=== PATIENT | female | born 1970 | race Caucasian/White ===

== ENCOUNTER → 2017-08-25 11:27 | Outpatient (CLI) | payer BC, SELFPAY ==
[2017-08-25 12:43] LABS: Thyroid Stim Hormone (TSH) 0.12 uIU/mL (0.358-3.74)
== END ==
PROVIDERS: Family Provider Family Medicine; PCP Family Medicine; Visit Provider Family Medicine
DX: E03.9 Hypothyroidism, unspecified (principal)
CPT/HCPCS: 36415; 84443

== ENCOUNTER → 2018-03-02 16:29 | Outpatient (CLI) | payer BC, SELFPAY | PROVIDERS: Visit Provider Obstetrics & Gynecology | DX: R92.2 Inconclusive mammogram (principal) | CPT/HCPCS: 87070; 87077; 87186; 87205 ==

== ENCOUNTER → 2018-04-08 13:44 | Outpatient (CLI) | payer BC, SELFPAY | PROVIDERS: Family Provider Family Medicine; PCP Family Medicine; Visit Provider Family Medicine | DX: E03.9 Hypothyroidism, unspecified (principal) | CPT/HCPCS: 36415; 84443 ==

== ENCOUNTER → 2018-05-20 13:57 | Outpatient (CLI) | payer BC, SELFPAY ==
[2018-05-20 16:28] LABS: Thyroid Stim Hormone (TSH) 1.77 uIU/mL (0.358-3.74)
== END ==
PROVIDERS: Family Provider Family Medicine; PCP Family Medicine; Visit Provider Family Medicine
DX: E03.9 Hypothyroidism, unspecified (principal)
CPT/HCPCS: 36415; 84443

== ENCOUNTER 2022-03-04 19:19 | Emergency (ER) | payer OTHER, SELFPAY ==
[2022-03-04 19:20] VITALS: BP 143/67; PULSE 92; RESP 16; TEMP 36.4; O2SAT 99; BMI 26.0
--- NOTE | 2022-03-04 20:53 | EDS_ITS ---
HPI History of Present Illness Chief Complaint: Headache Narrative Narrative: 51-year-old female presenting with headache. She has a history of migraines and this feels similar. She is had this 1 for 2 days. She describes photophobia and phonophobia. She states that she does take sumatriptan and naproxen together usually and this helps. Her headache will go away for short while and then it is coming back now. Denies fever, neck stiffness. No head trauma. No paresthesias. [facility] Medical History Back pain Hypothyroidism Left breast abscess Migraines Non-smoker Psoriasis Sjogrens syndrome Home Medications divalproex 250 mg tablet,delayed release 500 mg PO BID 02/02/16 [History Last Taken 05/16/17 07:00] levothyroxine 100 mcg tablet 112 mcg PO DAILY 02/02/16 [History Last Taken 07/01/17 04:00] propranolol 160 mg capsule,24 hr,extended release 160 mg PO DAILY 02/02/16 [History Last Taken 07/01/17 04:00] sumatriptan 85 mg-naproxen 500 mg tablet 1 tab PO PRN PRN Migraine Symptoms 02/02/16 [History Last Taken 02/02/16 09:45] erythromycin 5 mg/gram (0.5 %) eye ointment 1 applic EACH EYE QHS 05/15/17 [History Last Taken Unknown] fluorometholone acetate 0.1 % eye drops,suspension 2 drp EACH EYE DAILY 05/15/17 [History Last Taken Unknown] omeprazole 20 mg capsule,delayed release 40 mg PO DAILY 06/28/17 [History Last Taken 07/01/17 04:00] acetaminophen 500 mg tablet 500 - 1,000 mg PO PRN PRN Pain 06/30/17 [History Last Taken Unknown] cyclosporine 0.05 % eye drops in a dropperette (Restasis) 1 drp EACH EYE BID 03/04/22 [History Last Taken Unknown] Allergy/AdvReac Type Severity Reaction Status Date / Time No Known Allergies Allergy Verified 03/04/22 19:23 Family History Father Cancer Surgical History History of colonoscopy history of left breast surgery Social History Smoking Status: Never smoker alcohol intake: never substance use type: does not use ROS ROS ED Constitutional Constitutional ED: Denies chills or fever(s) Eyes Eyes: Denies change in vision ENT ENT ED: Denies rhinorrhea or sore throat Cardiovascular Cardiovascular: Denies chest pain or palpitations Respiratory/Chest Respiratory/Chest: Denies cough or dyspnea Gastrointestinal Gastrointestinal: Reports nausea; Denies abdominal pain or constipation Genitourinary Genitourinary ED: Denies dysuria or hematuria Musculoskeletal Musculoskeletal: Denies arthralgias or back pain Integumentary Denies abscess Neurologic Neurologic: Reports headache(s); Denies paresthesias Psychiatric Psychiatric: Denies anxiety or depression EXAM Physical Exam Const Vital Signs: 03/04/22 19:20 Temperature 97.5 F L Temperature Source Temporal Pulse Rate 92 Respiratory Rate 16 Blood Pressure 143/67 H Blood Pressure Mean 92 Pulse Ox 99 Oxygen Delivery Method Room Air Positive well nourished General Appearance ED: NAD HEENT Reports normocephalic and moist mucous membranes atraumatic Eyes PERRL and EOMs intact bilaterally Resp normal respiratory effort Cardio regular rate and regular rhythm GI non-tender Extremity normal to inspection Neuro oriented x3, CN's II-XII intact bilaterally and no sensory deficits noted Sensorium / Orientation: awake and alert Psych mental status grossly normal MDM MDM MDM Narrative Medical decision making narrative: Patient presenting with migraine headache. She states she had it for 2 to 3 days. Her normal eyedrops are working for her. She states this is a typical migraine for her although it is lasting longer. No focal neurologic deficits. Patient given Reglan, Benadryl, Toradol. On reevaluation at 1050 she feels very much improved and is ready to go home. I do not believe she needs any imaging or blood work. Patient to return precautions. Impression: 1. Migraine Discharge Plan Triage Chief Complaint: Headache ED Provider: James Wise Dx/Rx/DC Orders Instructions: ED, Migraine (Classical) Prescriptions: No Action sumatriptan-naproxen 1 EACH tablet 1 tab PO PRN PRN (Reason: Migraine Symptoms) Label Comments: TAKE 1 TABLET BY ORAL ROUTE NEEDED FOR HEADACHE MAX 15/MONTH propranolol 160 MG capsule,extended release 24hr 160 mg PO DAILY Label Comments: FOR PREVENTION MIGRAINES divalproex 250 MG tablet 500 mg PO BID Label Comments: PREVENT MIGRAINES levothyroxine 100 MCG tablet 112 mcg PO DAILY omeprazole 20 MG capsule 40 mg PO DAILY fluorometholone acetate 1 DROP bottle 2 drp EACH EYE DAILY erythromycin 1 APPLIC ointment 1 applic EACH EYE QHS acetaminophen 500 MG tablet 500 - 1,000 mg PO PRN PRN (Reason: Pain) cyclosporine [Restasis] 0.05 % dropperette 1 drp EACH EYE BID Label Comments: 1 drop in both eyes twice a day Primary Care Provider: Justin Johnson Referrals: Justin Johnson MD [Primary Care Provider] - Disposition Disposition: Home, Self Care
[2022-03-04] MEDS: Metoclopramide 10 MG/2 ML Vial IV (20:59)
[2022-03-04] MEDS: DiphenhydrAMINE 50 MG/ML Syringe 25 MG IV (21:00)
[2022-03-04] MEDS: 0.9% Normal Saline 1,000 ML 999 ML IV (21:00)
[2022-03-04] MEDS: Ketorolac 15 MG/ML Vial IV (21:00)
[2022-03-04 23:14] VITALS: RESP 16
== END 2022-03-04 23:15 | disposition home or self-care (01) ==
PROVIDERS: Emergency Provider Student in an Organized Health Care Education/Training Program; PCP Family Medicine; Visit Provider Student in an Organized Health Care Education/Training Program
DX: G43.909 Migraine, unspecified, not intractable, without status migrainosus (principal); E03.9 Hypothyroidism, unspecified; Z79.899 Other long term (current) drug therapy
CPT/HCPCS: 96361; 96374; 96375; 99282; J7030; A4216

== ENCOUNTER → 2022-07-10 | Outpatient (CLI) | payer OTHER, SELFPAY ==
[2022-07-10 17:56] LABS: Absolute Lymphocyte Count 2.65 X10^3/uL (0.83-4.51); Absolute Neutrophil Count 3.8 X10^3/uL (2.0-7.7); Basophil# 0.04 X10^3/uL; Basophil% 0.5 % (0-1); Eosinophil# 0.19 X10^3/uL; Eosinophils% 2.6 % (0-5); Hematocrit 47.4 % (37-47); Hemoglobin 15.7 g/dL (12.0-15.0); Lymphocyte # 2.65 X10^3/ul (0.83-4.51); Lymphocyte % 36.1 % (19-41); Mean Corp Hgb Conc 33.1 g/dL (32-36); Mean Corpuscular Hgb 32.5 pg (27.0-32.0); Mean Corpuscular Volume 98.1 fL (81-99); Mean Platelet Vol. 11.4 fl (6.2-12.0); Monocyte# 0.61 X10^3/uL; Monocyte% 8.3 % (0-10); NRBC Flagged by Analyzer 0 % (0-5); Neutrophil # 3.84 X10^3/uL (2.7-7.7); Neutrophil % 52.2 % (47-70); Platelet Count 239 K/mm3 (150-450); RBC Distribution Width CV 12.8 % (11.6-14.6); RBC Distribution Width SD 46.1 fl (35.1-43.9); Red Blood Count 4.83 M/mm3 (4.2-5.4); White Blood Count 7.4 K/mm3 (4.4-11.0)
[2022-07-10 18:40] LABS: ALB/GLOB Ratio 1.1 RATIO (0.9-2.4); AST(SGOT) 20 U/L (15-37); Alanine Aminotransfer ALT/SGPT 39 U/L (13-56); Alkaline Phosphatase 79 U/L (45-117); Anion Gap 5 (5-15); BUN 23 mg/dL (7-18); BUN/Creat Ratio 29.5 RATIO (10-20); Calcium,Total 9.8 mg/dL (8.5-10.1); Chloride 109 mmol/L (98-107); Creatinine, Serum 0.78 mg/dL (0.55-1.02); EST Glomerular Filtration Rate 82 mL/min (>60); Est Glom Filt Rate - Afr Amer 99 mL/min (>60); Free T3 2.7 pg/mL (2.18-3.98); Globulin 3.5 g/dL (2.2-4.2); Glucose 93 mg/dL (74-106); Lipase 188 U/L (73-393); Potassium 4.5 mmol/L (3.5-5.1); Protein, Total 7.5 g/dL (6.4-8.2); Sodium Level 143 mmol/L (136-145); T4 Free Direct 1.61 ng/dL (0.76-1.46); Thyroid Stim Hormone (TSH) 0.18 uIU/mL (0.358-3.74)
== END | disposition home or self-care (01) ==
LOC: BFHLAB 15:16
PROVIDERS: PCP Family Medicine; Visit Provider Family Medicine
DX: E03.9 Hypothyroidism, unspecified (principal); R10.11 Right upper quadrant pain
CPT/HCPCS: 36415; 80053; 83690; 84439; 84443; 84481; 85025

== ENCOUNTER → 2022-08-07 | Outpatient (CLI) | payer OTHER, SELFPAY ==
--- NOTE | 2022-08-07 07:20 | CT_ITS ---
STUDY: CT ABDOMEN AND PELVIS WITHOUT CONTRAST REASON FOR EXAM: Female, 52 years old. Several months history of right-sided abdominal pain. RADIATION DOSAGE (If Supplied By Facility): CTDIvol = ( 7.11 ) mGy, DLP = ( 257.43 ) mGycm TECHNIQUE: Transaxial images were obtained from the dome of the diaphragm to the symphysis pubis without oral contrast, and without intravenous contrast. Sagittal and coronal images were reconstructed. Individualized dose optimization techniques were used for this CT. COMPARISON: Comparison is made with prior study dated 08/11/2012. FINDINGS: The visualized lung bases are unremarkable. The visualized portions of the heart are within normal limits. Normal liver. Normal gallbladder and extrahepatic biliary system. Normal spleen. Normal pancreas. Normal bilateral adrenal glands. Normal right kidney. Normal left kidney. Normal visualized stomach. Normal small intestine. Moderate amount of fecal material is seen throughout the colon. The appendix is visualized and appears normal. Small lymph nodes are seen in the mesenteric fat in the right lower quadrant is suggestive of mesenteric adenitis. Normal abdominal aorta. Normal inferior vena cava. Normal retroperitoneum. Normal urinary bladder. Normal abdominal wall. Disc space narrowing and spondylosis at the L5-S1 level. CT/Abdomen/Pel W ORAL Cont Only IMPRESSION: Small lymph nodes are seen in the mesentery in the right lower quadrant suggestive of mesenteric adenitis. Electronically Signed: Richy Means MD at 9:20 EST ,
== END | disposition home or self-care (01) ==
PROVIDERS: PCP Family Medicine; Visit Provider Family Medicine
DX: R10.13 Epigastric pain (principal); R11.0 Nausea
CPT/HCPCS: 74176

== ENCOUNTER 2023-02-13 14:59 | Emergency (ER) | payer OTHER, SELFPAY ==
[2023-02-13 15:00] VITALS: BP 139/77; PULSE 75; RESP 14; TEMP 36.8; O2SAT 98
--- NOTE | 2023-02-13 15:26 | EDS_ITS ---
HPI <SHAILESH Haynes - Last Filed: 02/13/23 16:29> History of Present Illness Chief Complaint: Headache Narrative Narrative: 52-year-old female has longstanding history of migraines and developed her typical migraine yesterday. She got Toradol in the office was prescribed an antiemetic but it only helped a little bit. Pain is in the frontal region but also generalized throbbing. No visual changes. No focal motor or sensory changes. No recent head trauma. No fever or neck pain. She states she sees a neurologist and is prescribed sumatriptan and naproxen. She thinks she has had both CTs and MRIs in the past that were unremarkable. [facility] <SHAILESH Haynes - Last Filed: 02/13/23 16:29> [facility] Medical History Back pain Hypothyroidism Left breast abscess Migraines Non-smoker Psoriasis Sjogrens syndrome Home Medications divalproex 250 mg tablet,delayed release 500 mg PO BID 02/02/16 [History Last Taken 05/16/17 07:00] levothyroxine 100 mcg tablet 112 mcg PO DAILY 02/02/16 [History Last Taken 07/01/17 04:00] propranolol 160 mg capsule,24 hr,extended release 160 mg PO DAILY 02/02/16 [History Last Taken 07/01/17 04:00] sumatriptan 85 mg-naproxen 500 mg tablet 1 tab PO PRN PRN Migraine Symptoms 02/02/16 [History Last Taken 02/02/16 09:45] erythromycin 5 mg/gram (0.5 %) eye ointment 1 applic EACH EYE QHS 05/15/17 [History Last Taken Unknown] fluorometholone acetate 0.1 % eye drops,suspension 2 drp EACH EYE DAILY 05/15/17 [History Last Taken Unknown] omeprazole 20 mg capsule,delayed release 40 mg PO DAILY 06/28/17 [History Last Taken 07/01/17 04:00] acetaminophen 500 mg tablet 500 - 1,000 mg PO PRN PRN Pain 06/30/17 [History Las t Taken Unknown] cyclosporine 0.05 % eye drops in a dropperette (Restasis) 1 drp EACH EYE BID 03/04/22 [History Last Taken Unknown] Allergy/AdvReac Type Severity Reaction Status Date / Time No Known Allergies Allergy Verified 02/13/23 15:00 Family History Father Cancer Surgical History History of colonoscopy history of left breast surgery Social History Smoking Status: Never smoker alcohol intake: never substance use type: does not use ROS <SHAILESH Haynes - Last Filed: 02/13/23 16:29> ROS ED ROS Narrative Constitutional: Negative for fever, chills, malaise. Eyes: Negative for visual change. CVS: Negative for chest pain. Respiratory: Negative for shortness of breath. GI: Positive for nausea, vomiting. Neuro: Positive for headache, negative for motor/sensory dysfunction. EXAM <SHAILESH Haynes - Last Filed: 02/13/23 16:29> Physical Exam Narrative Exam Narrative: CONST: Patient sitting in no acute distress. EYES: Normal inspection. PERRLA, EOMI. ENT: Normal inspection, moist mucous membranes. NECK: Normal inspection. RESP: No respiratory distress, CTAB. CVS: Regular rate and rhythm, no murmur, no gallop. SKIN: Color normal, no rash, warm, dry, intact. EXTREMITIES: Normal appearance, no pedal edema. NEURO: Oriented x4. 5/5 upper and lower extremity strength, normal finger-nose bilaterally. PSYCH: Normal affect. Const Vital Signs: 02/13/23 15:00 Temperature 98.2 F Temperature Source Temporal Pulse Rate 75 Respiratory Rate 14 Blood Pressure 139/77 H Blood Pressure Mean 97 Pulse Ox 98 Oxygen Delivery Method Room Air <Dr. James Alexandra MD - Last Filed: 02/13/23 16:02> Physical Exam Const Vital Signs: 02/13/23 15:00 Temperature 98.2 F Temperature Source Temporal Pulse Rate 75 Respiratory Rate 14 Blood Pressure 139/77 H Blood Pressure Mean 97 Pulse Ox 98 Oxygen Delivery Method Room Air MDM <SHAILESH Haynes - Last Filed: 02/13/23 16:29> MDM MDM Narrative Medical decision making narrative: History gathered from: Patient and family member at bedside Patient presents with a migraine. She appears well nontoxic. Vital signs normal. Nonfocal neurological exam. Since this is her typical migraine with no new concerning symptoms she does not require imaging as she has had this in the past with her neurologist. I ordered IV fluids, Toradol, Compazine and Benadryl. Patient feels improved and would like to go home and will follow-up with her neurologist as needed. She was discharged in stable condition. <Dr. James Alexandra MD - Last Filed: 02/13/23 16:02> [facility] Treatment and Re-Evaluation Narrative: Ibrahima: Patient was seen by me. I agree with the above extenders note, note was done by both me and the PA as I may have edited some of the above. Patient has chronic recurrent cephalgia, she had a gradual onset of headache earlier today she has no fevers or chills, she has no head injury. She does not meet criteria for head CT. She has no signs or symptoms of infectious etiology like meningitis. LP is not warranted. Since she has a chronic recurrent cephalgia which is gradual onset I am not worried about subarachnoid hemorrhage. She will be treated as a migraine and discharged in stable condition Discharge Plan Triage Chief Complaint: Headache ED Midlevel Provider: Shreya Bailey ED Provider: James Alexandra Dx/Rx/DC Orders Clinical Impression: Migraine Instructions: ED, Migraine (Classical) Prescriptions: No Action sumatriptan-naproxen 1 EACH tablet 1 tab PO PRN PRN (Reason: Migraine Symptoms) Patient Comments: TAKE 1 TABLET BY ORAL ROUTE NEEDED FOR HEADACHE MAX 15/MONTH propranolol 160 MG capsule,extended release 24hr 160 mg PO DAILY Patient Comments: FOR PREVENTION MIGRAINES divalproex 250 MG tablet 500 mg PO BID Patient Comments: PREVENT MIGRAINES levothyroxine 100 MCG tablet 112 mcg PO DAILY omeprazole 20 MG capsule 40 mg PO DAILY fluorometholone acetate 1 DROP bottle 2 drp EACH EYE DAILY erythromycin 1 APPLIC ointment 1 applic EACH EYE QHS acetaminophen 500 MG tablet 500 - 1,000 mg PO PRN PRN (Reason: Pain) cyclosporine [Restasis] 0.05 % dropperette 1 drp EACH EYE BID Patient Comments: 1 drop in both eyes twice a day Primary Care Provider: Shreya Black Referrals: Shreya Black DO [Primary Care Provider] - Activity Restrictions/Additional Instructions: Follow-up with your neurologist for your migraine Disposition Disposition: Home, Self Care
[2023-02-13] MEDS: proCHLORPERazine 10 MG/2 ML Vial 5 MG IV (15:27)
[2023-02-13] MEDS: DiphenhydrAMINE 50 MG/ML Syringe 25 MG IV (15:28)
[2023-02-13] MEDS: Ketorolac 15 MG/ML Vial IV (15:28)
[2023-02-13] MEDS: 0.9% Normal Saline 1,000 ML 999 ML IV (15:36)
== END 2023-02-13 16:34 | disposition home or self-care (01) ==
PROVIDERS: Emergency Provider Emergency Medicine; PCP Family Medicine; Visit Provider Emergency Medicine
DX: G43.909 Migraine, unspecified, not intractable, without status migrainosus (principal); M35.00 Sjogren syndrome, unspecified; E03.9 Hypothyroidism, unspecified
CPT/HCPCS: 96361; 96374; 96375; 99283; J7030; A4216

== ENCOUNTER → 2023-05-28 | Outpatient (CLI) | payer OTHER, SELFPAY ==
--- NOTE | 2023-05-28 08:05 | RAD_ITS ---
INDICATION: Shortness of breath EXAMINATION/TECHNIQUE: X-RAY - XR Chest 2 Views COMPARISON: No relevant prior comparison study available FINDINGS: LINES/DEVICES: None. LUNGS: No consolidation, edema or effusion. No pneumothorax. MEDIASTINUM AND CARDIOVASCULAR STRUCTURES: Cardiac silhouette not enlarged. Central airways and mediastinal contour are unremarkable. BONES AND SOFT TISSUES: Unremarkable. RAD/Chest PA and Lateral IMPRESSION: No radiographic evidence of acute cardiopulmonary disease. Electronically Signed: Hans Maxwell MD at 8:24 EDT ,
[2023-05-28 09:15] LABS: Absolute Neutrophil Count 6.4 X10^3/uL (2.0-7.7); Basophil# 0.04 X10^3/uL; Basophil% 0.3 % (0-1); Hematocrit 48.1 % (37-47); Hemoglobin 15.9 g/dL (12.0-15.0); Lymphocyte % 45.8 % (19-41); Mean Corp Hgb Conc 33.1 g/dL (32-36); Mean Corpuscular Hgb 32.7 pg (27.0-32.0); Mean Platelet Vol. 10.7 fl (6.2-12.0); Monocyte# 0.89 X10^3/uL; Monocyte% 6.5 % (0-10); NRBC Flagged by Analyzer 0 % (0-5); Neutrophil # 6.39 X10^3/uL (2.7-7.7); Neutrophil % 46.3 % (47-70); POSITIVE DIFFERENTIAL YES; POSITIVE MORPHOLOGY YES; Platelet Count 279 K/mm3 (150-450); RBC Distribution Width CV 12.5 % (11.6-14.6); RBC Distribution Width SD 45.2 fl (35.1-43.9); Red Blood Count 4.86 M/mm3 (4.2-5.4); White Blood Count 13.8 K/mm3 (4.4-11.0)
[2023-05-28 09:19] LABS: Differential Indicated SCAN CRITERIA MET
[2023-05-28 09:37] LABS: Vitamin B12 550 pg/mL (211-911); Vitamin D,25 Hydroxy 46.5 ng/mL
[2023-05-28 09:40] LABS: ALB/GLOB Ratio 0.9 RATIO (0.9-2.4); AST(SGOT) 9 U/L (15-37); Alanine Aminotransfer ALT/SGPT 34 U/L (13-56); Albumin, Serum 3.2 g/dL (3.2-5.0); Alkaline Phosphatase 57 U/L (45-117); Anion Gap 5 (5-15); BUN 28 mg/dL (7-18); BUN/Creat Ratio 32.3 RATIO (10-20); Calcium,Total 9.4 mg/dL (8.5-10.1); Chloride 108 mmol/L (98-107); Cholesterol 139 mg/dL (200); Creatinine, Serum 0.87 mg/dL (0.55-1.02); EST Glomerular Filtration Rate 72 mL/min (>60); Est Glom Filt Rate - Afr Amer 87 mL/min (>60); Globulin 3.5 g/dL (2.2-4.2); Glucose 72 mg/dL (74-106); High Density Lipoprotein 52 mg/dL; Potassium 3.9 mmol/L (3.5-5.1); Protein, Total 6.7 g/dL (6.4-8.2); Sodium Level 141 mmol/L (136-145); T4 Free Direct 1.37 ng/dL (0.76-1.46); Thyroid Stim Hormone (TSH) 0.47 uIU/mL (0.358-3.74); Triglycerides 106 mg/dL; Very Low Density Lipoprotein 21 mg/dL (5-40)
[2023-05-28 11:13] LABS: Differential Comment SCANNED
== END | disposition home or self-care (01) ==
LOC: LAB 07:47
PROVIDERS: PCP Family Medicine; Referring Provider Nurse Practitioner Family; Visit Provider Nurse Practitioner Family
DX: Z00.01 Encounter for general adult medical examination with abnormal findings (principal); R53.83 Other fatigue; E03.9 Hypothyroidism, unspecified; R06.02 Shortness of breath; R05.9 Cough, unspecified; R07.89 Other chest pain
CPT/HCPCS: 36415; 71046; 80053; 80061; 82306; 82607; 84439; 84443; 85025

== ENCOUNTER 2024-06-12 22:04 | Emergency (ER) | payer OTHER, SELFPAY ==
[2024-06-12 22:05] VITALS: BP 147/67; PULSE 80; RESP 17; TEMP 36.7; O2SAT 98; BMI 26.3
[2024-06-12] MEDS: Ketorolac 30 MG/ML Syringe IV (23:22)
[2024-06-12] MEDS: dexAMETHasone 10 MG/ML Vial IV (23:22)
[2024-06-12] MEDS: DiphenhydrAMINE 50 MG/ML Syringe IV (23:23)
[2024-06-12] MEDS: Metoclopramide 10 MG/2 ML Vial IV (23:23)
--- NOTE | 2024-06-13 01:08 | EDS_ITS ---
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 She states she has a daily preventative medication as well as medication for breakthrough headaches. She states over the past week she has been having sinus pressure and daily headaches which she has been using her medications. She states the meds that helped but today they did not resolve the headache. She states she is sensitive to light and sound which is normal for her and she denies any recent trauma. However as she could not get a headache under control at home presents for evaluation [facility] Medical History Back pain Hypothyroidism Left breast abscess Migraines Non-smoker Psoriasis Sjogrens syndrome Home Medications ?Medication ?Instructions ?Recorded ?Last Taken ?Type divalproex 250 mg tablet,delayed 500 mg PO BID 02/02/16 05/16/17 07:00 History release levothyroxine 100 mcg tablet 112 mcg PO DAILY 02/02/16 07/01/17 04:00 History propranolol 160 mg capsule,24 160 mg PO DAILY 02/02/16 07/01/17 04:00 History hr,extended release sumatriptan 85 mg-naproxen 500 mg 1 tab PO PRN PRN Migraine Symptoms 02/02/16 02/02/16 09:45 History tablet erythromycin 5 mg/gram (0.5 %) eye 1 applic EACH EYE QHS 05/15/17 Unknown History ointment fluorometholone acetate 0.1 % eye 2 drp EACH EYE DAILY 05/15/17 Unknown History drops,suspension omeprazole 20 mg capsule,delayed 40 mg PO DAILY 06/28/17 07/01/17 04:00 History release acetaminophen 500 mg tablet 500 - 1,000 mg PO PRN PRN Pain 06/30/17 Unknown History cyclosporine 0.05 % eye drops in a 1 drp EACH EYE BID 03/04/22 Unknown History dropperette (Restasis) Allergy/AdvReac Type Severity Reaction Status Date / Time No Known Allergies Allergy Verified 06/12/24 22:05 Family History Father Cancer Surgical History History of colonoscopy history of left breast surgery Social History Smoking Status: Never smoker alcohol intake: never substance use type: does not use ROS ROS ED Constitutional Constitutional ED: Denies chills or fever(s) Eyes Eyes: Reports other Details: Positive photophobia ENT ENT ED: Reports rhinorrhea Cardiovascular Cardiovascular: Denies chest pain Respiratory/Chest Respiratory/Chest: Denies cough or dyspnea Gastrointestinal Gastrointestinal: Reports nausea; Denies abdominal pain, diarrhea or vomiting Genitourinary Genitourinary ED: Denies dysuria Musculoskeletal Musculoskeletal: Denies neck pain Integumentary Denies rash Neurologic Neurologic: Reports headache(s); Denies paresthesias or weakness Hematologic/Lymphatic Hematologic/Lymphatic: Denies easy bleeding or easy bruising EXAM Physical Exam Const Vital Signs: 06/13/24 01:20 Temperature 97.8 F Pulse Rate 70 Respiratory Rate 14 Blood Pressure 112/70 Blood Pressure Mean 84 Pulse Ox 97 Positive well nourished and well developed General Appearance ED: well developed; Negative for pallor HEENT HEENT Narrative: Nasal mucosa is hyperemic and boggy There is cobblestoning noted in the posterior pharynx consistent with sinus drainage. No airway edema or compromise No secondary findings in the posterior pharynx to suggest infection Mild pain with palpation of the right maxillary and frontal sinus. Negative transillumination Eyes PERRL and EOMs intact bilaterally General Eye ED: Negative for scleral icterus Neck supple Neck Narrative: No nuchal rigidity or meningeal signs Resp normal respiratory effort and clear to auscultation bilaterally Cardio regular rate and regular rhythm GI normal to inspection, nondistended, normoactive bowel sounds, non-tender, non- distended and no masses Auscultation: normoactive bowel sounds Palpation: soft Extremity normal to inspection Neuro oriented x3, CN's II-XII intact bilaterally and no sensory deficits noted Neuro Narrative: GCS of 15 Cranial nerves II through XII are grossly intact there are no focal neurologic deficits No pronator drift no dysmetria no truncal ataxia NIH stroke scale score of 0 Sensorium / Orientation: alert Motor Exam: strength 5/5 throughout Psych mental status grossly normal Skin no rashes or lesions noted General Skin Exam: Negative for jaundice or pallor MDM MDM MDM Narrative Medical decision making narrative: Patient presented to the ER with stable vitals. She has a longstanding history of headache and states this feels similar nature to previous. There is been no report or signs of trauma. Differential diagnosis is for intractable migraine versus sinusitis versus spontaneous subarachnoid or subdural hemorrhage. As her history and exam is most consistent with intractable migraine I do not feel there is need for head CT or laboratory studies. Therefore patient was given IV Toradol Benadryl Reglan and Decadron. After patient was provided these medications she had resolution of her headache and her neurologic exam remained normal. Therefore at this time with resolution of symptoms persistently normal neurologic exam and stable vitals there is no need for further workup and she is otherwise safe for discharge History & Record Review Discussion w/independent historian: Patient and Family Discharge Plan Triage Chief Complaint: Headache ED Provider: Warren Mckeon Dx/Rx/DC Orders Clinical Impression: Cephalgia, Hypothyroidism, Sjogren syndrome Instructions: ED Headache Unspecified Prescriptions: No Action sumatriptan-naproxen 1 EACH tablet 1 tab PO PRN PRN (Reason: Migraine Symptoms) Patient Comments: TAKE 1 TABLET BY ORAL ROUTE NEEDED FOR HEADACHE MAX 15/MONTH propranolol 160 MG capsule,extended release 24hr 160 mg PO DAILY Patient Comments: FOR PREVENTION MIGRAINES divalproex 250 MG tablet 500 mg PO BID Patient Comments: PREVENT MIGRAINES levothyroxine 100 MCG tablet 112 mcg PO DAILY omeprazole 20 MG capsule 40 mg PO DAILY fluorometholone acetate 1 DROP bottle 2 drp EACH EYE DAILY erythromycin 1 APPLIC ointment 1 applic EACH EYE QHS acetaminophen 500 MG tablet 500 - 1,000 mg PO PRN PRN (Reason: Pain) cyclosporine [Restasis] 0.05 % dropperette 1 drp EACH EYE BID Patient Comments: 1 drop in both eyes twice a day Primary Care Provider: Olesya Kohli Referrals: Olesya Kohli, CLINICAL IMMUNOLOGIST-C [Primary Care Provider] - Print Language: Stateless Disposition Disposition: Home, Self Care Discharge Date/Time: 06/13/24 01:21
[2024-06-13 01:20] VITALS: BP 112/70; PULSE 70; RESP 14; TEMP 36.6; O2SAT 97
== END 2024-06-13 01:21 | disposition home or self-care (01) ==
PROVIDERS: Emergency Provider Emergency Medicine; PCP Nurse Practitioner Family; Visit Provider Emergency Medicine
DX: R51.9 Headache, unspecified (principal); E03.9 Hypothyroidism, unspecified; M35.00 Sjogren syndrome, unspecified
CPT/HCPCS: 96374; 96375; 99282; A4216

== ENCOUNTER → 2024-09-01 | Outpatient (CLI) | payer OTHER, SELFPAY ==
[2024-09-01 16:34] LABS: Absolute Lymphocyte Count 2.88 X10^3/uL (0.83-4.51); Absolute Neutrophil Count 3.3 X10^3/uL (2.0-7.7); Basophil# 0.08 X10^3/uL; Basophil% 1.1 % (0-1); Eosinophils% 4.2 % (0-5); Hematocrit 44.4 % (37-47); Hemoglobin 14.9 g/dL (12.0-15.0); Lymphocyte # 2.88 X10^3/ul (0.83-4.51); Mean Corp Hgb Conc 33.6 g/dL (32-36); Mean Corpuscular Hgb 32.5 pg (27.0-32.0); Mean Corpuscular Volume 96.7 fL (81-99); Mean Platelet Vol. 10.7 fl (6.2-12.0); Monocyte# 0.59 X10^3/uL; Monocyte% 8.2 % (0-10); NRBC Flagged by Analyzer 0 % (0-5); Neutrophil # 3.33 X10^3/uL (2.7-7.7); Neutrophil % 46.2 % (47-70); Platelet Count 260 K/mm3 (150-450); RBC Distribution Width CV 12.7 % (11.6-14.6); RBC Distribution Width SD 45.1 fl (35.1-43.9); Red Blood Count 4.59 M/mm3 (4.2-5.4); White Blood Count 7.2 K/mm3 (4.4-11.0)
[2024-09-01 17:27] LABS: AST(SGOT) 27 U/L (15-37); Alanine Aminotransfer ALT/SGPT 39 U/L (13-56); Albumin, Serum 3.7 g/dL (3.2-5.0); Alkaline Phosphatase 65 U/L (45-117); Anion Gap 6 (5-15); BUN 22 mg/dL (7-18); BUN/Creat Ratio 29.4 RATIO (10-20); Calcium,Total 9.3 mg/dL (8.5-10.1); Chloride 110 mmol/L (98-107); Creatinine, Serum 0.75 mg/dL (0.55-1.02); EST Glomerular Filtration Rate 85 mL/min (>60); Est Glom Filt Rate - Afr Amer 103 mL/min (>60); Globulin 3.6 g/dL (2.2-4.2); Glucose 80 mg/dL (74-106); Potassium 4.2 mmol/L (3.5-5.1); Protein, Total 7.3 g/dL (6.4-8.2); Sodium Level 142 mmol/L (136-145); T4 Free Direct 1.32 ng/dL (0.76-1.46)
[2024-09-01 17:50] LABS: Vitamin B12 571 pg/mL (211-911); Vitamin D,25 Hydroxy 24.4 ng/mL
== END | disposition home or self-care (01) ==
LOC: LABSPEC 15:37 → LAB 15:38
PROVIDERS: PCP Nurse Practitioner Family; Referring Provider Nurse Practitioner Family; Visit Provider Nurse Practitioner Family
DX: Z00.01 Encounter for general adult medical examination with abnormal findings (principal); E03.9 Hypothyroidism, unspecified; R53.83 Other fatigue
CPT/HCPCS: 36415; 80053; 82306; 82607; 84439; 84443; 85025

== ENCOUNTER 2025-02-26 17:31 | Emergency (ER) | payer OTHER, SELFPAY ==
[2025-02-26 17:31] VITALS: BP 154/77; PULSE 81; RESP 16; TEMP 37.1; O2SAT 99; BMI 27.8
--- NOTE | 2025-02-26 17:44 | CT_ITS ---
PROCEDURE: CT BRAIN/HEAD WITHOUT CONTRAST 02/26/2025 REASON FOR EXAM: TENDERNESS OVER THE FRONTAL AND MAXIL TECHNIQUE: CT BRAIN/HEAD WITHOUT CONTRAST. Coronal and Sagittal reconstruction series were provided. One or more dose reduction techniques were used (e.g., Automated exposure control, adjustment of the mA and/or kV according to patient size, use of iterative reconstruction technique. RADIATION DOSE SUMMARY: CTDlvol: 44.99 mGy DLP: 745.49 mGycm COMPARISON: None. FINDINGS: No acute intracranial hemorrhage, extra-axial collection, mass effect or evidence of acute infarct. Ventricles and subarachnoid spaces are normal in size. Orbital contents are unremarkable. Intact skull base and calvarium. Clear mastoid air cells and middle ear cavities. Complete opacification of the partially imaged left maxillary sinus. Remainder of imaged paranasal sinuses are well-aerated. CT/Brain/Head without Contrast IMPRESSION: No acute intracranial abnormality. Left maxillary sinus disease. Reading Location: [id number]
--- NOTE | 2025-02-26 17:45 | EX.ED.VIS.HA ---
HPI History of Present Illness Chief Complaint: Headache Detail of Chief Complaint: Patient presents with by lateral frontal, retro-orbital and facial pain. Informant: patient Onset/Context/Timing Onset: Today (This morning) Context: Sudden Timing: Continuous Quality -Headache: Positive for Other (Cannot describe. Uncomfortable feeling) Location: Previously mentioned Current Severity: Moderate Maximum Severity: Severe Worsened by: Light, sound, palpation Relieved by: Nothing Associated Symptoms/Injury Associated Symptoms: Positive for Nausea, Vomiting, Photophobia and - (Sonophobia); Negative for Fever, Sore Throat, Sinus Pressure, Numbness, Tingling, Preceding Aura, Visual Changes, Blurred Vision or Visual Loss Injury - VIGIL: Negative for Direct Trauma Narrative Narrative: Patient is a 54-year-old woman. She has history of hypothyroidism with ocular changes, migraine headaches. She was on sumatriptan. She was recently prescribed Nurtec. She states normally the medicine alleviates the headache in 3 to 4 hours. This has been going for her some time. She denies fever, chills night sweats. She denies double vision, blurred vision loss of vision. She does not complain of pain with eye movement. She does endorse nasal congestion. She denies postnasal drainage. Denies sore throat. She complains of neck pain but not stiffness of her neck. The headache is also located in the occiput and vertex area. She has not noted any skin lesions or rash. She denies motor weakness. She denies problems with coordination or balance. She does endorse nausea and vomiting. Patient stated I am about to lose it . Prior similar symptoms: No Recent Illness/Hospitalization: No [facility] Medical History Sjogrens syndrome Non-smoker Migraines Psoriasis Hypothyroidism Back pain Left breast abscess Home Medications ?Medication ?Instructions ?Recorded ?Last Taken ?Type divalproex 250 mg tablet,delayed 500 mg PO BID 02/02/16 05/16/17 07:00 History release levothyroxine 100 mcg tablet 112 mcg PO DAILY 02/02/16 07/01/17 04:00 History propranolol 160 mg capsule,24 160 mg PO DAILY 02/02/16 07/01/17 04:00 History hr,extended release sumatriptan 85 mg-naproxen 500 mg 1 tab PO PRN PRN Migraine Symptoms 02/02/16 02/02/16 09:45 History tablet erythromycin 5 mg/gram (0.5 %) eye 1 applic EACH EYE QHS 05/15/17 Unknown History ointment fluorometholone acetate 0.1 % eye 2 drp EACH EYE DAILY 05/15/17 Unknown History drops,suspension omeprazole 20 mg capsule,delayed 40 mg PO DAILY 06/28/17 07/01/17 04:00 History release acetaminophen 500 mg tablet 500 - 1,000 mg PO PRN PRN Pain 06/30/17 Unknown History cyclosporine 0.05 % eye drops in a 1 drp EACH EYE BID 03/04/22 Unknown History dropperette (Restasis) amoxicillin 875 mg-potassium 875 mg PO Q12H #20 TABLETS 02/26/25 Unknown Rx clavulanate 125 mg tablet hydrocodone-acetaminophen 5-325mg 1 tab PO Q6H PRN PRN Pain 3 days 02/26/25 Unknown Rx 5mg-325mg #10 TABLETS naproxen 500 mg tablet 500 mg PO BID #10 tabs 02/26/25 Unknown Rx Allergy/AdvReac Type Severity Reaction Status Date / Time No Known Allergies Allergy Verified 02/26/25 17:32 Family History Father Cancer Surgical History History of colonoscopy history of left breast surgery Social History Smoking Status: Never smoker alcohol intake: never substance use type: does not use ROS ROS ED Constitutional Constitutional ED: Denies chills, fever(s), subjective or sweats Eyes Eyes: Denies blurry vision, change in vision or diplopia ENT ENT ED: Reports rhinorrhea; Denies ear pain or sore throat Cardiovascular Cardiovascular: Denies chest pain, orthopnea, palpitations, paroxysmal nocturnal dyspnea or racing heartbeat Respiratory/Chest Respiratory/Chest: Denies cough, dyspnea, dyspnea on exertion, orthopnea or paroxysmal nocturnal dyspnea Gastrointestinal Gastrointestinal: Reports nausea and vomiting; Denies abdominal pain, constipation, diarrhea or melena Genitourinary Genitourinary ED: Denies dysuria, hematuria or urinary frequency Musculoskeletal Musculoskeletal: Reports neck pain; Denies arthralgias, back pain or myalgias Integumentary Denies rash Neurologic Neurologic: Reports headache(s); Denies paresthesias or weakness Psychiatric Psychiatric: Reports anxiety Hematologic/Lymphatic Hematologic/Lymphatic: Denies easy bleeding or easy bruising EXAM Physical Exam Const Vital Signs: 02/26/25 17:31 02/26/25 19:31 02/26/25 21:00 Temperature 98.7 F Temperature Source Oral Pulse Rate 81 67 70 Respiratory Rate 16 16 16 Blood Pressure 154/77 H 116/69 103/62 Blood Pressure Mean 102 84 75 Pulse Ox 99 100 99 Oxygen Delivery Method Room Air Room Air Room Air Positive well nourished and well developed Constitutional Narrative: Patient appears uncomfortable. General Appearance ED: well developed and pallor HEENT Reports normocephalic, TM's clear and moist mucous membranes atraumatic; Negative for temporal artery tenderness or vesicular rash Face and Sinus: sinus tenderness Positive for frontal and maxillary Tympanic Membrane ED: Yes TM's clear Eyes PERRL and EOMs intact bilaterally Eyes Narrative: Patient has bilateral exophthalmos is consistent with thyroid disease. Neck no lymphadenopathy, supple, no meningeal signs and no JVD Resp normal respiratory effort and clear to auscultation bilaterally Cardio regular rate, regular rhythm, S1 normal heart sound, S2 normal heart sound and no murmurs Extremity normal to inspection, full ROM and normal capillary refill Neuro oriented x3, CN's II-XII intact bilaterally and no sensory deficits noted Niles Coma Scale: document GCS findings Spontaneous Obeys Commands Oriented 15 Sensorium / Orientation: awake and alert Coordination / Balance: [id number] test normal Speech: speech normal Motor Exam: strength 5/5 throughout Psych Mood & Affect: tearful Skin General Skin Exam: pallor; Negative for elasticity normal, turgor normal or jaundice MDM MDM MDM Narrative Medical decision making narrative: This may be intractable migraine with status versus sinus infection versus headache of uncertain etiology. Since this is different and she has sinus tenderness with congestion we will obtain CT to evaluate for sinusitis. She was medicated with ketorolac, Benadryl and Reglan for her headache. Will reevaluate in an hour. History & Record Review Additional record(s) reviewed:: Prior ED visit (Last ER visit was June 13, 2024 for headache. She was seen by Dr. Warren Mckeon. She also was seen for migraine February 13 up to 2022.) Radiography Diagnostic Testing: Clinical Impression(s) from Imaging Studies Brain CT 02/26/25 17:44 IMPRESSION: No acute intracranial abnormality. Left maxillary sinus disease. Reading Location: [facility] CT of the head without contrast reveals no intracranial bleed, mass or vasogenic edema. The left maxillary sinus is full of mucus. There is 2 air bubbles noted. There is no air-fluid level. I do not appreciate any destruction of any osseous structures making up the left maxillary sinus. There is also evidence of bilateral ethmoid sinusitis. There is no pathology noted in the retro-orbital area. Frontal and sphenoid sinus are normal. Awaiting formal read by radiologist, 1827 Treatment and Re-Evaluation Narrative: Patient was reassessed at approximately 2024. She had little improvement. Morphine was ordered at 2049 since she was still having pain. Awaiting interpretation of CAT scan by radiologist. Patient was informed that the radiologist did read the films and agrees. Apologize for any convenience. Plan is prescription for opiate analgesia and Augmentin. Discharge Plan Triage Chief Complaint: Headache ED Provider: Kirt Roblero Dx/Rx/DC Orders Clinical Impression: Maxillary sinusitis, Acute ethmoidal sinusitis, Acute intractable headache, History of migraine Instructions: ED Sinusitis (Antibiotic Treatment) Prescriptions: New hydrocodone-acetaminophen 5-325 mg tablet 1 tab PO Q6H PRN PRN (Reason: Pain) 3 Days Qty: 10 0RF amoxicillin-pot clavulanate 875-125 mg tablet 875 mg PO Q12H Qty: 20 0RF naproxen 500 mg tablet 500 mg PO BID Qty: 10 0RF No Action sumatriptan-naproxen 1 EACH tablet 1 tab PO PRN PRN (Reason: Migraine Symptoms) Patient Comments: TAKE 1 TABLET BY ORAL ROUTE NEEDED FOR HEADACHE MAX 15/MONTH propranolol 160 MG capsule,extended release 24hr 160 mg PO DAILY Patient Comments: FOR PREVENTION MIGRAINES divalproex 250 MG tablet 500 mg PO BID Patient Comments: PREVENT MIGRAINES levothyroxine 100 MCG tablet 112 mcg PO DAILY omeprazole 20 MG capsule 40 mg PO DAILY fluorometholone acetate 1 DROP bottle 2 drp EACH EYE DAILY erythromycin 1 APPLIC ointment 1 applic EACH EYE QHS acetaminophen 500 MG tablet 500 - 1,000 mg PO PRN PRN (Reason: Pain) cyclosporine [Restasis] 0.05 % dropperette 1 drp EACH EYE BID Patient Comments: 1 drop in both eyes twice a day Primary Care Provider: Olesya Kohli Referrals: Olesya Kohli, [employer] [Primary Care Provider] - 3-5 Days if not improving Print Language: Urdu Disposition Disposition: Home, Self Care
[2025-02-26] MEDS: DiphenhydrAMINE 50 MG/ML Syringe 25 MG IV (18:02)
--- OUTSIDE RECORDS SUMMARY | 2025-02-26 18:09 | XMS RPT_ITS | CCD ---
Author Organization [facility] Inform ion [facility] Care Team Providers [facility] Pharmacy Technician Name Role Phone Kelsey Rivera PA-C Unavailable [phone] [place] Perdomo Unavailable [facility] Admitting Unava ilable POMERENE, [facility] Attending Unava ilable [facility] Primary Care UnaJUSTIN Mcguire MD Primary Care Physician Justin Johnson MD Primary Care Provider Justin Johnson MD Primary Care Provider [phone] Justin Johnson MD Primary Care Provider JUSTIN JOHNSON Primary Jossie Unavailable JUSTIN JOHNSON Primary [facility] Unavailable JUSTIN JOHNSON Primary Care Unavailable JUSTIN JOHNSON Primary Care Unavailable ADILIA RAND Attending Unavailable JUSTIN JOHNSON Primary Care Unavailable JUSTIN JOHNSON Primary Care Unavailable FRANSISCA VILLARREAL MD Attending Unavailable JUSTIN JOHNSON MD Primary Care Unavailable Justin Johnson MD Primary Care Provider [phone] FRANSISCA VILLARREAL MD Attending Unavailable JUSTIN JOHNSON MD Primary Care Unavailable Olesya Kohli Attending Unavailable Olesya Kohli Referring Unavailable Olesya Kohli Primary Care Unavailable Warren Mckeon Attending Unavailable Olesya Kohli Primary Care Unavailable Medications Current Medications Medication Drug Class(es) Dates Sig (Normalized) Sig (Original) acetaminophen 500 mg oral tablet (5 sources) Start: 06-30-2017 Acetaminophen Active 500 - 1000 MG PO NEEDED June 30, 2017 12:00am [id number] 200 actuat albuterol 0.09 mg/actuat metered dose inhaler (12 sources) beta2-Adrenergic Agonist Start: 09-08-2021 End: 05-07-2022 take 2 puff(s) by inhalation every six hours as needed for wheezing albuterol HFA (PROVENTIL HFA, VENTOLIN HFA) 90 mcg/actuation inhaler Indications: Sinobronchitis Inhale 2 Puffs as instructed every 6 hours as needed for wheezing/shortness of breath. 1 Each 05/07/2022 Active Comment on above: Inhale 2 Puffs as in structed every 6 hours as needed for wheezing/shortness of breath. amoxicillin 875 mg / clavulanate 125 mg oral tablet (1 source) Penicillin-class Antibacterial Start: 05-07-2022 End: 05-12-2022 take 1 tablet by mouth twice daily amoxicillin-clavul anic acid (AUGMENTIN) 875-125 mg per tablet Take 1 tablet by mouth twice daily for 5 days. 10 tablet 0 05/07/2022 05/12/2022 Active Comment on above: Take 1 tablet by tadeo twice daily for 5 days. cycloSPORINE 0.5 mg/ml ophthalmic suspension (12 sources) Calcineurin Inhibitor Immunosuppressant Start: 02-07-2016 RESTASIS 0.05 % ophthalmic emulsion 02/07/2016 Active Cyclosporine (Restasis) 0.05 % dropperette (5 sources) Start: 03-04-2022 Cyclosporine (Restasis) 0.05 % dropperette Active 1 DRP EACH EYE TWICE A DAY March 03, 2022 11:00pm Start: 03-04-2022 Cyclosporine ( Restasis) 0.05 % dropperette Active 1 DRP EACH EYE TWICE A DAY March 04, 2022 12:00am erythromycin 0.005 mg/mg ophthalmic ointment (5 sources) Macrolide, Macrolide Antimicrobial Start: 05-15-2017 Erythromycin Active 1 APPLIC EACH EYE AT BEDTIME May 14, 2017 11:00pm fluconazole 150 mg oral tablet (1 source) Azole Antifungal Start: 05-08-2023 End: 05-09-2023 take 1 tablet by mouth once daily fluconazole (DIFLUCAN) 150 mg tablet Take 1 tablet by mouth once daily for 1 day. 1 tablet 0 05/08/2023 05/09/2023 Active Comment on above: Take 1 tablet by tadeo once daily for 1 day. fluorometholone acetate 1 mg/ml ophthalmic suspension (17 sources) Corticosteroid Start: 05-15-2017 Fluorometholone Acetate Active 2 DRP EACH EYE DAILY May 14, 2017 11:00pm Start: 03-14-2016 fluorometholon e (FML LIQUID FILM) 0.1 % ophthalmic suspension 03/14/2016 Active nitrofurantoin, macrocrystals 25 mg / nitrofurantoin, monohydrate 75 mg oral capsule (2 sources) Nitrofuran Antibacterial Start: 11-14-2022 End: 11-19-2022 take 1 capsule by mouth twice daily nitrofurantoin monohydrate and macrocrystal (MACROBID) 100 mg capsule Take 1 capsule by mouth twice daily for 5 days. 10 capsule 0 11/14/2022 11/19/2022 Active Comment on above: Take 1 capsule by mo [facility] twice daily for 5 days. omeprazole 20 mg delayed release oral capsule (20 sources) Proton Pump Inhibitor Start: 06-28-2017 take 40 mg by mouth once daily Omeprazole Active 40 MG PO DAILY June 28, 2017 1:14pm Start: 05-12-2017 [facility] OMEPRAZOLE 40 MG CPDR One tablet by mouth daily OMEPRAZOLE [id number] Milton Hopper MD Start: 02-02-2016 End: 07-24-2023 take 20 mg by mouth once daily Omeprazole Discontinued 20 MG PO DAILY February 01, 2016 11:00pm June 28, 2017 1:15pm Comment on above: Take 20 mg by mouth once daily. Completed/Discontinued Medications Medication Drug Class(es) Dates Sig (Normalized) Sig (Original) acetaminophen 325 mg / HYDROcodone bitartrate 5 mg oral tablet (11 sources) Opioid Agonist Start: 05-28-2017 HYDROCODONE-ACETAMI NOPHEN 5-325 MG TABS Take 1 tablet every 6 hours as needed for pain HYDROCODONE-ACETAMI NOPHEN [id number] Kelsey Rivera PA-C Start: 05-16-2017 End: 08-05-2017 take 1 tablet by mouth every six hours as needed Hydrocodone-Acetaminophen Discontinued 1 TABLET PO EVERY 6 HOURS NEEDED July 01, 2017 8:01am August 05, 2017 1:06pm Acetaminophen / pamabrom (11 sources) End: 07-24-2023 ACETAMINOPHEN/PAMABROM (MIDO L ORAL) Take by mouth as needed. 07/24/2023 Discontinued ACETAMINOPHEN/PA MABROM (MIDOL ORAL) Take by mouth as needed. 0 Active Comment on above: Take by mouth as nee ded. benzonatate 100 mg oral capsule (20 sources) Non-narcotic Antitussive Start: End: take 1-2 capsules by mouth three times daily as needed benzonatate (TESSALON PERLES) 100 mg capsule Indications: URI with cough and congestion Take 1-2 capsules by mouth three times daily as needed. 30 capsule 04/29/2022 07/24/2023 Discontinued Start: 08-25-2021 End: 07-24-2023 take 2 capsules by mouth every eight hours as needed benzonatate (TESSALON PERLE) 100 mg capsule Take 2 capsules by mouth three times daily as needed. 30 capsule 08/25/2021 07/24/2023 Discontinued Comment on above: Take 2 capsules by out three times daily as needed. Take 1-2 capsules by mouth three times daily as needed. Take 1 capsule by mo [facility] three times a day as needed for cough. cholecalciferol 0.05 mg oral capsule (11 sources) Vitamin D End: 07-24-20 take 1 tablet by mouth once daily Cholecalciferol, Vitamin D3, (VITAMIN D-3) 2,000 unit cap Take 1 tablet by mouth once daily. 07/24/2023 Discontinued Comment on above: [facility] collagenase 0.25 unt/mg topical ointment (5 sources) Collagen-specifi c Enzyme Start: 07-15-20 End: 03-09-20 18 Collagenase Clostridium Histo. (Santyl) 250 unit/gram ointment Discontinued 1 APPLIC TOPICAL daily July 15, 2017 12:00am March 09, 2018 11:33am ferrous sulfate 325 mg oral tablet (11 sources) End: 07-24-20 take 1 tablet by mouth once daily at breakfast ferrous sulfate 325 mg (65 mg iron) tablet Take 325 mg by mouth daily with breakfast. 07/24/2023 Discontinued Comment on above: Take 325 mg by mouth daily with breakfast. levothyroxine sodium 0.1 mg oral tablet (20 sources) l-Thyroxine Start: 01-03-20 take 1 tablet by mouth once daily in the morning levothyroxine (SYNTHROID) 100 mcg tablet Take 100 mcg by mouth every morning. Take on an empty stomach. 0 01/02/2023 Active Start: 02-02-2016 take 112 ug by mouth once daily Levothyroxine Active 112 MCG PO DAILY February 01, 2016 11:00pm End: 07-24-2023 levothyroxine (SYNTHROID) 50 mcg tablet Take 112 mcg by mouth daily before breakfast. 07/24/2023 Discontinued Comment on above: Take 112 mcg by mout h daily before breakfast. Take 100 mcg by mout h every morning. Take on an empty stomach. Loratadine (11 sources) End: 07-24-2023 LORATADINE (CLARITIN ORAL) Take by mouth once daily. 07/24/2023 Discontinued LORATADINE (CLAR ITIN ORAL) Take by mouth once daily. 0 Active Comment on above: Take by mouth once d aily. mometasone furoate 0.05 mg/actuat metered dose nasal spray (11 sources) Corticosteroid End: 07-24-20 mometasone (NASONEX) 50 mcg/actuation nasal spray Use 2 Sprays in the nose once daily. 07/24/2023 Discontinued Comment on above: Use 2 Sprays in the nose once daily. naproxen / SUMAtriptan (20 sources) Nonsteroidal Anti-inflammatory Drug, Serotonin-1b and Serotonin-1d Receptor Agonist Start: 05-12-20 take 1 tablet by mouth once daily TREXIMET 10-60 MG TABS One tablet by mouth daily SUMATRIPTAN-NAPROXEN SODIUM [id number] Milton Hopper MD Start: 02-02-2016 Sumatriptan-Na proxen Active 1 TABLET PO NEEDED February 01, 2016 11:00pm End: 09-22-2023 take 1 tablet by mouth once as needed SUMAtriptan-Naproxen 85-500 mg per tablet Take 1 tablet by mouth as needed. 09/22/2023 Discontinued Comment on above: Take 1 tablet by tadeo th as needed. [place]-3 Fatty Acids-Vitamin E (FISH OIL) 1,000 mg cap (11 sources) End: 07-24-2023 [place]-3 Fatty Acids-Vitamin E (FISH OIL) 1,000 mg cap Take 1 capsule by mouth as needed. 07/24/2023 Discontinued [place]-3 Fatty Ac ids-Vitamin E (FISH OIL) 1,000 mg cap Take 1 capsule by mouth as needed. 0 Active Comment on above: Take 1 capsule by mo [facility] as needed. ondansetron 4 mg disintegrating oral tablet (5 sources) Serotonin-3 Receptor Antagonist Start: 02-13-20 End: 05-02-20 take 1 tablet by mouth every eight hours ondansetron orally disintegrating (ZOFRAN ODT) 4 mg disintegrating tablet Take 1 tablet by mouth every 8 hours. 12 tablet 0 05/02/2023 Active Comment on above: Take 1 tablet by [facility] every 8 hours. Take 4 mg by mouth e very 8 hours. predniSONE 10 mg oral tablet (2 sources) Start: 05-16-20 End: 05-28-20 predniSONE (DELTASONE) 10 mg tablet Take 6 tabs for 3 days, then 4 tabs for 3 days, then 2 tabs for 3 days then 1 tab for 3 days with food. 39 tablet 05/16/2022 05/28/2022 Start: 05-07-2022 End: 05-11-2022 take 2 tablets by mouth once daily at mealtime predniSONE (DELTASONE) 20 mg tablet Indications: Sinobronchitis Take 2 tablets by mouth once daily for 4 days. Take daily with food. 8 tablet 0 05/07/2022 05/11/2022 Active Comment on above: Take 2 tablets by [facility] once daily for 4 days. Take daily with food. propranolol hydrochloride 20 mg oral tablet (20 sources) beta-Adrenergic Gabriel Start: 05-12-2017 take 1 tablet by mouth once daily PROPRANOLOL HCL 20 MG TABS One tablet by mouth daily PROPRANOLOL HCL [id number] Milton Hopper MD Start: 02-02-2016 take 160 mg by mouth once jaimie y Propranolol Active 160 MG PO DAILY February 01, 2016 11:00pm Comment on above: Take 160 mg by mouth once daily. 24 hr divalproex sodium 500 mg extended release oral tablet (20 sources) Start: 01-02-2023 take 1 tablet by mouth twice daily divalproex ER (DEPAKOTE ER) 500 mg 24 hr tablet Take 500 mg by mouth twice daily. 0 01/02/2023 Active Start: 05-12-2017 take 1 tablet by tadeo th twice daily DEPAKOTE 250 MG TBEC One tablet by mouth twice daily DIVALPROEX SODIUM [id number] Milton Hopper MD Start: 02-02-2016 take 500 mg by mouth twice daily Divalproex Active 500 MG PO TWICE A DAY February 01, 2016 11:00pm End: 09-22-2023 take 1 tablet by mouth once daily divalproex DR (DEPAKOTE) 500 mg EC tablet Take 500 mg by mouth once daily. 09/22/2023 Discontinued (Duplicate Entry) Comment on above: Take 500 mg by mouth once daily. Take 500 mg by mouth twice daily. Problems Active Problems Problem Classification Problem Date Documented Date Episodic/Chronic Genitourinary symptoms and ill-defined conditions (3 sources) Scalding pain on urination ; Translations: [Dysuria] Episodic Headache; including migraine (3 sources) Migraine; Translations: [Migraine, unspecified, not intractable, without status migrainosus] 02-13-2023 Chronic Headache; including migraine (1 source) Headache; including migraine; Translations: [Headache, unspecified] Onset: 07-12-2024 Nausea and vomiting (1 source) Nausea; Translations: [Nausea] 05-02-2023 Episodic Open wounds of head; neck; and trunk (5 sources) Disorder of breast; Translations: [Unspecified open wound of unspecified breast, initial encounter] 08-07-2017 Episodic Other ear and sense organ disorders (1 source) Otalgia, left ear; Translations: [Otalgia, unspecified] Episodic Other inflammatory condition of skin (11 sources) Psoriasis; Translations: [Psoriasis with arthropathy] Onset: 05-12-2017 05-12-2017 Chronic Other lower respiratory disease (2 sources) Cough; Translations: [Subacute cough] 05-16-2022 Episodic Other upper respiratory disease (1 source) Pain in face; Translations: [Other specified disorders of nose and nasal sinuses] 05-02-2023 Episodic Other upper respiratory infections (1 source) Chronic sinusitis; Translations: [Chronic sinusitis, unspecified] Chronic Other upper respiratory infections (3 sources) Sore throat symptom; Translations: [Acute pharyngitis, unspecified] Episodic Residual codes; unclassified (5 sources) History of colonoscopy; Translations: [Other specified postprocedural states] 08-05-2017 Episodic Spondylosis; intervertebral disc disorders; other back problems (8 sources) Backache; Translations: [Dorsalgia, unspecified] Onset: 05-12-2017 05-12-2017 Episodic Thyroid disorders (8 sources) Hypothyroidism; Translations: [Hypothyroidism, unspecified] Onset: 05-12-2017 05-12-2017 Chronic Past or Other Problems Problem Classification Problem Date Documented Da te Episodic/Chronic Nonmalignant breast conditions (20 sources) Abscess of breast; Translations: [Abscess of the breast and nipple] Onset: 02-01-2016 05-12-2017 Episodic Unclassified (5 sources) history of left breast surgery 02-14-2022 Results Test Name Value Interpretation Reference Range Facility CBC W/Diff, Automatedon Absolute Lymph 2.88 X10 3/uL Normal 0.83-4.51 [facility] Comment on above: Performed By: #### L [id number], L500.4050, L503.0105, L506.1000, L506.0400, L100.0100 #### [facility] [address] [place], [address] Absolute Neut 3.3 X10 3/uL Normal 2.0-7.7 [facility] Comment on above: Performed By: #### L [id number], L500.4050, L503.0105, L506.1000, L506.0400, L100.0100 #### [facility] [address] [place], [address] Basophils/100 WBC (Bld) 1.1 % High 0-1 [facility] Comment on above: Performed By: #### L [id number], [id number], L503.0105, L506.1000, L506.0400, L100.0100 #### [facility] [address] [place], [address] Eosinophils/100 WBC (Bld) 4.2 % Normal 0-5 [facility] Comment on above: Performed By: #### L [id number], [id number], L503.0105, L506.1000, L506.0400, L100.0100 #### [facility] [address] [place], [address] Erythrocyte distribution width (RBC) [Ratio] 12.7 % Normal 11.6-14.6 [facility] Comment on above: Performed By: #### L [id number], [id number], L503.0105, L506.1000, L506.0400, L100.0100 #### [facility] [address] [place], [address] Hematocrit (Bld) [Volume fraction] 44.4 % Normal 37-47 [facility] Comment on above: Performed By: #### L [id number], [id number], L503.0105, L506.1000, L506.0400, L100.0100 #### [facility] [address] [place], [address] Hemoglobin (Bld) [Mass/Vol] 14.9 g/dL Normal 12.0-15.0 [facility] Comment on above: Performed By: #### L [id number], [id number], L503.0105, L506.1000, L506.0400, L100.0100 #### [facility] [address] [place], [address] IG% 0.300 Normal 0.0-0.9 [facility] Comment on above: Result Comment: IG% - Immature Granulocytes (promyelocytes, myelocytes and metamyelocytes) > 1% indicates that a LEFT SHIFT is Present. Performed By: #### L [id number], L500.4050, L503.0105, L506.1000, L506.0400, L100.0100 #### [facility] [address] [place], [address] Lymphocytes/100 WBC (Bld) 40.0 % Normal 19-41 [facility] Comment on above: Performed By: #### L [id number], L500.4050, L503.0105, L506.1000, L506.0400, L100.0100 #### [facility] [address] [place], [address] MCH (RBC) [Entitic mass] 32.5 pg High 27.0-32.0 [facility] Comment on above: Performed By: #### L [id number], [id number], L503.0105, L506.1000, L506.0400, L100.0100 #### [facility] [address] [place], [address] MCHC (RBC) [Mass/Vol] 33.6 g/dL Normal 32-36 [facility] Comment on above: Performed By: #### L [id number], [id number], L503.0105, L506.1000, L506.0400, L100.0100 #### [facility] [address] [place], [address] MCV (RBC) [Entitic vol] 96.7 fL Normal 81-99 [facility] Comment on above: Performed By: #### L [id number], L500.4050, L503.0105, L506.1000, L506.0400, L100.0100 #### [facility] [address] [place], [address] Monocytes/100 WBC (Bld) 8.2 % Normal 0-10 [facility] Comment on above: Performed By: #### L [id number], L500.4050, L503.0105, L506.1000, L506.0400, L100.0100 #### [facility] [address] [place], [address] Neutrophils/100 WBC (Bld) 46.2 % Low 47-70 [facility] Comment on above: Performed By: #### L [id number], L500.4050, L503.0105, L506.1000, L506.0400, L100.0100 #### [facility] [address] [place], [address] Nucleated RBC (Bld) [#/Vol] 0 10*3/uL Normal 0-5 [facility] Comment on above: Performed By: #### L [id number], L500.4050, L503.0105, L506.1000, L506.0400, L100.0100 #### [facility] [address] [place], [address] Platelet mean volume (Bld) [Entitic vol] 10.7 fL Normal 6.2-12.0 [facility] Comment on above: Performed By: #### L [id number], L500.4050, L503.0105, L506.1000, L506.0400, L100.0100 #### [facility] [address] [place], [address] Platelets (Bld) [#/Vol] 260 10*3/uL Normal 150-450 [facility] Comment on above: Performed By: #### L [id number], L500.4050, L503.0105, L506.1000, L506.0400, L100.0100 #### [facility] [address] [place], [address] RBC (Bld) [#/Vol] 4.59 10*6/uL Normal 4.2-5.4 [facility] Comment on above: Performed By: #### L [id number], L500.4050, L503.0105, L506.1000, L506.0400, L100.0100 #### [facility] [address] [place], [address] RDW SD 45.1 fl High 35.1-43.9 [facility] Comment on above: Performed By: #### L [id number], L500.4050, L503.0105, L506.1000, L506.0400, L100.0100 #### [facility] [address] [place], [address] WBC (Bld) [#/Vol] 7.2 10*3/uL Normal 4.4-11.0 [facility] Comment on above: Performed By: #### L [id number], L500.4050, L503.0105, L506.1000, L506.0400, L100.0100 #### [facility] [address] [place], [address] Comprehensive Metabolic Prof ilon 09-01-2024 Albumin [Mass/Vol] 3.7 g/dL Normal 3.2-5.0 [facility] Comment on above: Performed By: #### L [id number], L500.4050, L503.0105, L506.1000, L506.0400, L100.0100 #### [facility] [address] [place], [address] Albumin/Globulin [Mass ratio] 1.0 {ratio} Normal 0.9-2.4 [facility] Comment on above: Performed By: #### L [id number], L500.4050, L503.0105, L506.1000, L506.0400, L100.0100 #### [facility] [address] [place], [address] ALK P 65 U/L Normal 45-117 [facility] Comment on above: Performed By: #### L 501.9520, L500.4050, L503.0105, L506.1000, L506.0400, L100.0100 #### [facility] [address] [place], [address] ALT [Catalytic activity/Vol] 39 U/L Normal 13-56 [facility] Comment on above: Performed By: #### L [id number], L500.4050, L503.0105, L506.1000, L506.0400, L100.0100 #### [facility] [address] [place], [address] AST [Catalytic activity/Vol] 27 U/L Normal 15-37 [facility] Comment on above: Performed By: #### L [id number], L500.4050, L503.0105, L506.1000, L506.0400, L100.0100 #### [facility] [address] [place], [address] Bilirubin [Mass/Vol] 0.70 mg/dL Normal 0.20-1.00 [facility] Comment on above: Result Comment: For patients on eltrombopag therapy, use of Dimension [place] TBIL is not recommended. Performed By: #### L 501.9520, L500.4050, L503.0105, L506.1000, L506.0400, L100.0100 #### [facility] [address] [place], [address] BUN/CRE 29.4 RATIO High 10-20 [facility] Comment on above: Performed By: #### L [id number], L500.4050, L503.0105, L506.1000, L506.0400, L100.0100 #### [facility] [address] [place], [address] CA,Total 9.3 mg/dL Normal 8.5-10.1 [facility] Comment on above: Performed By: #### L [id number], L500.4050, L503.0105, L506.1000, L506.0400, L100.0100 #### [facility] [address] [place], [address] Chloride [Moles/Vol] 110 mmol/L High 98-107 [facility] Comment on above: Performed By: #### L 501.9520, L500.4050, L503.0105, L506.1000, L506.0400, L100.0100 #### [facility] [address] [place], [address] CO2 [Moles/Vol] 26.0 mmol/L Normal 21.0-32.0 [facility] Comment on above: Performed By: #### L [id number], L500.4050, L503.0105, L506.1000, L506.0400, L100.0100 #### [facility] [address] [place], [address] Creatinine [Mass/Vol] 0.75 mg/dL Normal 0.55-1.02 [facility] Comment on above: Result Comment: The validity of the calculated GFR GFRAA in patients over 70 years has not been determined. Clinical correlation is essential. Performed By: #### L 501.9520, L500.4050, L503.0105, L506.1000, L506.0400, L100.0100 #### [facility] [address] [place], [address] EST GFR - AA 103 mL/min Normal >60 [facility] Comment on above: Result Comment: Afri can Taiwanese GFR Calc Performed By: #### L [id number], L500.4050, L503.0105, L506.1000, L506.0400, L100.0100 #### [facility] [address] [place], [address] GAP 6 Normal 5-15 [facility] Comment on above: Performed By: #### L 501.9520, L500.4050, L503.0105, L506.1000, L506.0400, L100.0100 #### [facility] [address] [place], [address] GFR/1.73 sq M.predicted among non-blacks MDRD (S/P/Bld) [Vol rate/Area] 85 mL/min/{1.73_m2} Normal >60 [facility] Comment on above: Result Comment: Non- GFR Calc Performed By: #### L [id number], L500.4050, L503.0105, L506.1000, L506.0400, L100.0100 #### [facility] [address] [place], [address] Globulin (S) [Mass/Vol] 3.6 g/dL Normal 2.2-4.2 [facility] Comment on above: Performed By: #### L [id number], L500.4050, L503.0105, L506.1000, L506.0400, L100.0100 #### [facility] [address] [place], [address] Glucose [Mass/Vol] 80 mg/dL Normal 74-106 [facility] Comment on above: Performed By: #### L [id number], L500.4050, L503.0105, L506.1000, L506.0400, L100.0100 #### [facility] [address] [place], [address] Potassium [Moles/Vol] 4.2 mmol/L Normal 3.5-5.1 [facility] Comment on above: Performed By: #### L 501.9520, L500.4050, L503.0105, L506.1000, L506.0400, L100.0100 #### [facility] [address] [place], [address] Sodium [Moles/Vol] 142 mmol/L Normal 136-145 [facility] Comment on above: Performed By: #### L 501.9520, L500.4050, L503.0105, L506.1000, L506.0400, L100.0100 #### [facility] [address] [place], [address] T PROT 7.3 g/dL Normal 6.4-8.2 [facility] Comment on above: Performed By: #### L 501.9520, L500.4050, L503.0105, L506.1000, L506.0400, L100.0100 #### [facility] [address] [place], [address] Urea nitrogen [Mass/Vol] 22 mg/dL High 7-18 [facility] Comment on above: Performed By: #### L 501.9520, L500.4050, L503.0105, L506.1000, L506.0400, L100.0100 #### [facility] [address] [place], [address] T4 Free Directon 09-01-2024 T4 FREE DIRECT 1.32 ng/dL Normal 0.76-1.46 [facility] Comment on above: Performed By: #### L 501.9520, L500.4050, L503.0105, L506.1000, L506.0400, L100.0100 #### [facility] [address] [place], [address] Thyroid Stim Hormone (TSH)on 09-01-2024 TSH 3.990 uIU/mL High 0.358-3.740 [facility] Comment on above: Performed By: #### L 501.9520, L500.4050, L503.0105, L506.1000, L506.0400, L100.0100 #### [facility] [address] [place], [address] Vitamin B12on 09-01-2024 Cobalamin (Vitamin B12) [Mass/Vol] 571 pg/mL Normal 211-911 [facility] Comment on above: Performed By: #### L 501.9520, L500.4050, L503.0105, L506.1000, L506.0400, L100.0100 #### [facility] [address] [place], [address] Vitamin D,25 Hydroxyon 09-01 Vitamin D 25-OH 24.4 ng/mL Normal [facility] Comment on above: Result Comment: Susana min D 25(OH) Status Range Deficiency <20 ng/mL (50nmol/L) Insufficiency 20 - 30 ng/mL (50 - 75 nmol/L) Sufficiency 30 - 100 ng/mL (75 - 250 nmol/L) Toxicity >100 ng/mL (>250 nmol/L) Performed By: #### L 501.9520, L500.4050, L503.0105, L506.1000, L506.0400, L100.0100 #### [facility] [address] [place], [address] Emergency Department Summary on 06-13-2024 Emergency Department Summary [facility] Medical Records Department [address] [place] [address] Emergency Department Summary 06/13/24 MR#: [id number] Acct: [id number] Name: NATALY NASSAR Rep #: [id number] : 1970 54 From: Warren Mckeon DO PCP: MOMO Sylvester Status:[facility] ER Location: ED [facility] History of Present Illness Chief Complaint: Headache Informant: patient and family Narrative Narrative: Patient is a 54-year-old female with 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 She states she has a daily preventative medication as well as medication for breakthrough headaches. She states over the past week she has been having sinus pressure and daily headaches which she has been using her medications. She states the meds that helped but today they did not resolve the headache. She states she is sensitive to light and sound which is normal for her and she denies any recent trauma. However as she could not get a headache under control at home presents for evaluation [facility] Medical History Back pain Hypothyroidism Left breast abscess Migraines Non-smoker Psoriasis Sjogrens syndrome Home Medications ???Medication ???Instructions ???Recorded ???Last Taken ???Type divalproex 250 mg tablet,delayed 500 mg PO BID 02/02/16 05/16/17 07:00 History release levothyroxine 100 mcg tablet 112 mcg PO DAILY 02/02/16 07/01/17 04:00 History propranolol 160 mg capsule,24 160 mg PO DAILY 02/02/16 07/01/17 04:00 History hr,extended release sumatriptan 85 mg-naproxen 500 mg 1 tab PO PRN PRN Migraine Symptoms 02/02/16 02/02/16 09:45 History tablet erythromycin 5 mg/gram (0.5 %) eye 1 applic EACH EYE QHS 05/15/17 Unknown History ointment fluorometholone acetate 0.1 % eye 2 drp EACH EYE DAILY 05/15/17 Unknown History drops,suspension omeprazole 20 mg capsule,delayed 40 mg PO DAILY 06/28/17 07/01/17 04:00 History release acetaminophen 500 mg tablet 500 - 1,000 mg PO PRN PRN Pain 06/30/17 Unknown History cyclosporine 0.05 % eye drops in a 1 drp EACH EYE BID 03/04/22 Unknown History dropperette (Restasis) Allergy/AdvReac Type Severity Reaction Status Date / Time No Known Allergies Allergy Verified 06/12/24 22:05 Family History Father Cancer Surgical History History of colonoscopy history of left breast surgery Social History Smoking Status: Never smoker alcohol intake: never substance use type: does not use ROS ROS ED Constitutional Constitutional ED: Denies chills or fever(s) Eyes Eyes: Reports other Details: Positive photophobia ENT ENT ED: Reports rhinorrhea Cardiovascular Cardiovascular: Denies chest pain Respiratory/Chest Respiratory/Chest: Denies cough or dyspnea Gastrointestinal Gastrointestinal: Reports nausea; Denies abdominal pain, diarrhea or vomiting Genitourinary Genitourinary ED: Denies dysuria Musculoskeletal Musculoskeletal: Denies neck pain Integumentary Denies rash Neurologic Neurologic: Reports headache(s); Denies paresthesias or weakness Hematologic/Lymphatic Hematologic/Lymphatic : Denies easy bleeding or easy bruising EXAM Physical Exam Const Vital Signs: 06/13/24 01:20 Temperature 97.8 F Pulse Rate 70 Respiratory Rate 14 Blood Pressure 112/70 Blood Pressure Mean 84 Pulse Ox 97 Positive well nourished and well developed General Appearance ED: well developed; Negative for pallor HEENT HEENT Narrative: Nasal mucosa is hyperemic and boggy There is cobblestoning noted in the posterior pharynx consistent with sinus drainage. No airway edema or compromise No secondary findings in the posterior pharynx to suggest infection Mild pain with palpation of the right maxillary and frontal sinus. Negative transillumination Eyes PERRL and EOMs intact bilaterally General Eye ED: Negative for scleral icterus Neck supple Neck Narrative: No nuchal rigidity or meningeal signs Resp normal respiratory effort and clear to auscultation bilaterally Cardio regular rate and regular rhythm GI normal to inspection, nondistended, normoactive bowel sounds, non-tender, non-distended and no masses Auscultation: normoactive bowel sounds Palpation: soft Extremity normal to inspection Neuro oriented x3, CN's II-XII intact bilaterally and no sensory deficits noted Neuro Narrative: GCS of 15 Cranial nerves II through XII are grossly intact there are no focal neurologic deficits No pronator drift no dysmetria no truncal ataxia NIH stroke scale score of 0 Sensorium / Orientation: alert (more content not included)... Normal [facility] .Auto Diffon 2024 Basophil, Absolute 0.1 10 3/mcL Normal 0.0-0.2 [facility] ([place]) Comment on above: Performed By: #### A DIFF, TSH, CBC, VALPR, ANEU, CMP, GFR, FT4 #### [address] [place], [place] [address] Basophils/100 WBC (Bld) 0.8 % Normal 0.0-2.5 Counts Include [address] [facility] [facility] ([place]) Comment on above: Performed By: #### A DIFF, TSH, CBC, VALPR, ANEU, CMP, GFR, FT4 #### [address] [place], [place] [address] Eosinophil, Absolute 0.3 10 3/mcL Normal 0.0-0.4 [facility] ([place]) Comment on above: Performed By: #### A DIFF, TSH, CBC, VALPR, ANEU, CMP, GFR, FT4 #### [address] [address] Eosinophils/100 WBC (Bld) 4.1 % Normal 0.0-7.0 Counts Include [address] [facility] ([place]) Comment on above: Performed By: #### A DIFF, TSH, CBC, VALPR, ANEU, CMP, GFR, FT4 #### [address] [address] Lymphocyte, Absolute 2.6 10 3/mcL Normal 0.8-3.9 [facility] ([place]) Comment on above: Performed By: #### A DIFF, TSH, CBC, VALPR, ANEU, CMP, GFR, FT4 #### [address] [address] Lymphocytes/100 WBC (Bld) 38.1 % Normal 10.0-50.0 Counts Include [address] [facility] ([place]) Comment on above: Performed By: #### A DIFF, TSH, CBC, VALPR, ANEU, CMP, GFR, FT4 #### [address] [address] Monocyte, Absolute 0.8 10 3/mcL Normal 0.2-1.0 [facility] ([place]) Comment on above: Performed By: #### A DIFF, TSH, CBC, VALPR, ANEU, CMP, GFR, FT4 #### [address] [address] Monocytes/100 WBC (Bld) 11.1 % Normal 1.7-13.0 Counts Include [address] [facility] ([place]) Comment on above: Performed By: #### A DIFF, TSH, CBC, VALPR, ANEU, CMP, GFR, FT4 #### [address] [address] Neutrophils/100 WBC (Bld) 45.9 % Normal 37.0-80.0 Counts Include [address] [facility] ([place]) Comment on above: Performed By: #### A DIFF, TSH, CBC, VALPR, ANEU, CMP, GFR, FT4 #### [address] [address] .GFRon 2024 GFR 93 ml/min/1.73sqm Normal Counts Include [address] [facility] ([place]) Comment on above: Result Comment: GFR Population mean for , Non- Americans Ages 20-29 = 116 mL/min/1.73 sq.m. Ages 30-39 = 107 mL/min/1.73 sq.m. Ages 40-49 = 99 mL/min/1.73 sq.m. Ages 50-59 = 93 mL/min/1.73 sq.m. Ages 60-69 = 85 mL/min/1.73 sq.m. Ages 70+ = 75 mL/min/1.73 sq.m. Chronic Kidney Disease: Less than 60 mL/min/1.73 square meters End Stage Renal Disease: Less than 15 mL/min/1.73 square meters Performed By: #### A DIFF, TSH, CBC, VALPR, ANEU, CMP, GFR, FT4 #### [address] [address] GFR Non- 76 ml/min/1.73sqm Normal Counts Include [address] [facility] ([place]) Comment on above: Result Comment: GFR Population mean for , Non- Americans Ages 20-29 = 116 mL/min/1.73 sq.m. Ages 30-39 = 107 mL/min/1.73 sq.m. Ages 40-49 = 99 mL/min/1.73 sq.m. Ages 50-59 = 93 mL/min/1.73 sq.m. Ages 60-69 = 85 mL/min/1.73 sq.m. Ages 70+ = 75 mL/min/1.73 sq.m. Chronic Kidney Disease: Less than 60 mL/min/1.73 square meters End Stage Renal Disease: Less than 15 mL/min/1.73 square meters Performed By: #### A DIFF, TSH, CBC, VALPR, ANEU, CMP, GFR, FT4 #### [address] [address] .NEUABSon 2024 Neutrophil, Absolute 3.1 10 3/mcL Normal 2.9-6.2 [facility] ([place]) Comment on above: Performed By: #### A DIFF, TSH, CBC, VALPR, ANEU, CMP, GFR, FT4 #### [address] [address] CBCon 2024 Erythrocyte distribution width (RBC) [Ratio] 13.0 % Normal 11.5-14.5 Counts Include [address] [facility] ([place]) Comment on above: Performed By: #### A DIFF, TSH, CBC, VALPR, ANEU, CMP, GFR, FT4 #### [address] [address] Hematocrit (Bld) [Volume fraction] 42.8 % Normal 37.0-47.0 Counts Include [address] [facility] [facility] ([place]) Comment on above: Performed By: #### A DIFF, TSH, CBC, VALPR, ANEU, CMP, GFR, FT4 #### [place] [address] Hgb 14.6 G/dL Normal 12.0-16.0 Counts Include [address] [facility] ([place]) Comment on above: Performed By: #### A DIFF, TSH, CBC, VALPR, ANEU, CMP, GFR, FT4 #### [address] [address] MCH (RBC) [Entitic mass] 33.8 pg High 27.0-31.2 Counts Include [address] [facility] ([place]) Comment on above: Performed By: #### A DIFF, TSH, CBC, VALPR, ANEU, CMP, GFR, FT4 #### [address] [address] MCHC 34.2 G/dL Normal 33.0-37.0 Counts Include [address] [facility] ([place]) Comment on above: Performed By: #### A DIFF, TSH, CBC, VALPR, ANEU, CMP, GFR, FT4 #### [address] [address] MCV (RBC) [Entitic vol] 98.9 fL High 80.0-94.0 Counts Include [address] [facility] ([place]) Comment on above: Performed By: #### A DIFF, TSH, CBC, VALPR, ANEU, CMP, GFR, FT4 #### [address] [address] Platelet 237 10 3/mcL Normal 130-400 Counts Include [address] [facility] ([place]) Comment on above: Performed By: #### A DIFF, TSH, CBC, VALPR, ANEU, CMP, GFR, FT4 #### [address] [address] Platelet mean volume (Bld) [Entitic vol] 8.8 fL Normal 7.4-10.4 Counts Include [address] [facility] [facility] ([place]) Comment on above: Performed By: #### A DIFF, TSH, CBC, VALPR, ANEU, CMP, GFR, FT4 #### [address] [address] RBC 4.32 10 6/mcL Normal 4.20-5.40 Counts Include [address] [facility] [facility] ([place]) Comment on above: Performed By: #### A DIFF, TSH, CBC, VALPR, ANEU, CMP, GFR, FT4 #### [address] [address] WBC 6.8 10 3/mcL Normal 4.6-10.8 Counts Include [address] [facility] ([place]) Comment on above: Performed By: #### A DIFF, TSH, CBC, VALPR, ANEU, CMP, GFR, FT4 #### [address] [address] CMPon 2024 Albumin Level 3.6 G/dL Normal 3.5-5.0 [facility]) Comment on above: Performed By: #### A DIFF, TSH, CBC, VALPR, ANEU, CMP, GFR, FT4 #### [address] [address] Albumin/Globulin [Mass ratio] 1.2 {ratio} Normal 1.1-2.5 Counts Include [address] [facility] ([place]) Comment on above: Performed By: #### A DIFF, TSH, CBC, VALPR, ANEU, CMP, GFR, FT4 #### [address] [address] ALP [Catalytic activity/Vol] 72 U/L Normal 40-135 Counts Include [address] [facility] ([place]) Comment on above: Performed By: #### A DIFF, TSH, CBC, VALPR, ANEU, CMP, GFR, FT4 #### [address] [address] ALT [Catalytic activity/Vol] 46 U/L Normal 14-59 Counts Include [address] [facility] ([place]) Comment on above: Performed By: #### A DIFF, TSH, CBC, VALPR, ANEU, CMP, GFR, FT4 #### [address] [address] AST [Catalytic activity/Vol] 20 U/L Normal 10-40 Counts Include [address] [facility] ([place]) Comment on above: Performed By: #### A DIFF, TSH, CBC, VALPR, ANEU, CMP, GFR, FT4 #### [address] [address] Bili Total 0.4 mg/dL Normal 0.2-1.0 Counts Include [address] [facility] [facility] ([place]) Comment on above: Result Comment: Use of this assay is not recommended for patients undergoing treatment with eltrombopag due to the potential for falsely elevated results. Performed By: #### A DIFF, TSH, CBC, VALPR, ANEU, CMP, GFR, FT4 #### [address] [address] BUN/Creatinine Ratio 24 ratio Normal 7-27 [facility] ([place]) Comment on above: Performed By: #### A DIFF, TSH, CBC, VALPR, ANEU, CMP, GFR, FT4 #### [address] [address] Calcium [Mass/Vol] 9.2 mg/dL Normal 8.4-10.2 [facility] ([place]) Comment on above: Performed By: #### A DIFF, TSH, CBC, VALPR, ANEU, CMP, GFR, FT4 #### [address] [address] Chloride [Moles/Vol] 108 mmol/L High 98-107 [facility] ([place]) Comment on above: Performed By: #### A DIFF, TSH, CBC, VALPR, ANEU, CMP, GFR, FT4 #### [address] [address] CO2 [Moles/Vol] 28 mmol/L Normal 22-29 Counts Include [address] [facility] ([place]) Comment on above: Performed By: #### A DIFF, TSH, CBC, VALPR, ANEU, CMP, GFR, FT4 #### [address] [address] Creatinine [Mass/Vol] 0.78 mg/dL Normal 0.55-1.02 [facility] ([place]) Comment on above: Performed By: #### A DIFF, TSH, CBC, VALPR, ANEU, CMP, GFR, FT4 #### [address] [address] Electrolyte Balance 7.0 mEq/L Normal 4.0-15.0 [facility] ([place]) Comment on above: Performed By: #### A DIFF, TSH, CBC, VALPR, ANEU, CMP, GFR, FT4 #### [address] [address] Globulin 3.0 G/dL Normal Counts Include [address] [facility] ([place]) Comment on above: Performed By: #### A DIFF, TSH, CBC, VALPR, ANEU, CMP, GFR, FT4 #### [address] [address] Glucose [Mass/Vol] 81 mg/dL Normal 70-105 [facility] ([place]) Comment on above: Performed By: #### A DIFF, TSH, CBC, VALPR, ANEU, CMP, GFR, FT4 #### [address] [address] Potassium [Moles/Vol] 4.9 mmol/L Normal 3.5-5.1 [facility] ([place]) Comment on above: Performed By: #### A DIFF, TSH, CBC, VALPR, ANEU, CMP, GFR, FT4 #### [address] [place] [address] Sodium [Moles/Vol] 143 mmol/L Normal 136-145 [facility] ([place]) Comment on above: Performed By: #### A DIFF, TSH, CBC, VALPR, ANEU, CMP, GFR, FT4 #### [address] [address] Total Protein 6.6 G/dL Normal 6.4-8.2 Counts Include [address] [facility] ([place]) Comment on above: Performed By: #### A DIFF, TSH, CBC, VALPR, ANEU, CMP, GFR, FT4 #### [address] [address] Urea nitrogen [Mass/Vol] 19 mg/dL High 7-18 Counts Include [address] [facility] ([place]) Comment on above: Performed By: #### A DIFF, TSH, CBC, VALPR, ANEU, CMP, GFR, FT4 #### [address] [address] FT4on 2024 Free T4 [Mass/Vol] 1.37 ng/dL Normal 0.76-1.46 [facility] ([place]) Comment on above: Performed By: #### A DIFF, TSH, CBC, VALPR, ANEU, CMP, GFR, FT4 #### [address] TSHon 2024 TSH Qn 2.34 m[IU]/L Normal 0.36-3.74 Counts Include [address] [facility] ([place]) Comment on above: Performed By: #### A DIFF, TSH, CBC, VALPR, ANEU, CMP, GFR, FT4 #### [address] [address] VALPRon 2024 Valproic Acid Lvl 78 mcg/mL Normal 50-100 Counts Include [address] [facility] ([place]) Comment on above: Performed By: #### A DIFF, TSH, CBC, VALPR, ANEU, CMP, GFR, FT4 #### [address] [address] LDose Valproic Acid: Unknown Normal [facility] ([place]) Comment on above: Performed By: #### A DIFF, TSH, CBC, VALPR, ANEU, CMP, GFR, FT4 #### [address] [place], [place] [address] OV 07-24-2023 [facility] NATALY NASSAR ([id number]) 1970 F Date Time Provider Department 07/24/23 2:15 PM JOHN BACK [facility] During your visit today, we recorded the following information about you: Temperature Pulse Respiration Blood pressure 97.6 degrees 68/minute 18/minute 110/78 Weight 69.9 kg John Back MD 07/24/2023 2:50 PM Signed Patient presents with: Sore Throat: ST, ISAACS, nausea, dizzy and bodyaches-exposed to COVID-woke up with symptoms HPI: Feeling sick today. Her sister she lives with has COVID illness. Positive symptoms: Sore throat, Body Aches, Malaise, Fatigue, Headache, Nausea, Cough, Nasal Congestion, Rhinorrhea, Negative symptoms: Shortness of breath, Wheezing, Diarrhea, OTC: none Has not performed COVID test this illness. PAST MEDICAL HISTORY Diagnosis Date Hypothyroidism Migraines Psoriasis Psoriatic arthritis (HCC) Sciatica Sjogren's syndrome (HCC) MEDICATIONS: Current Outpatient Medications Medication Sig ondansetron orally disintegrating (ZOFRAN ODT) 4 mg disintegrating tablet Take 1 tablet by mouth every 8 hours. divalproex ER (DEPAKOTE ER) 500 mg 24 hr tablet Take 500 mg by mouth twice daily. levothyroxine (SYNTHROID) 100 mcg tablet Take 100 mcg by mouth every morning. Take on an empty stomach. albuterol HFA (PROVENTIL HFA, VENTOLIN HFA) 90 mcg/actuation inhaler Inhale 2 Puffs as instructed every 6 hours as needed for wheezing/shortness of breath. RESTASIS 0.05 % ophthalmic emulsion fluorometholone (FML LIQUID FILM) 0.1 % ophthalmic suspension divalproex DR (DEPAKOTE) 500 mg EC tablet Take 500 mg by mouth once daily. SUMAtriptan-Naproxen 85-500 mg per tablet Take 1 tablet by mouth as needed. propranolol ER (INDERAL LA) 160 mg Cs24 Take 160 mg by mouth once daily. No current facility-administered medications for this visit. ALLERGIES: ALLERGIES No Known Allergies VITALS: BP 110/78 Pulse 68 Temp 36.4 ?C (97.6 ?F) (Tympanic) Resp 18 Wt 69.9 kg (154 lb) LMP (LMP Unknown) SpO2 98% BMI 26.43 kg/m? PHYSICAL EXAM: GEN: mildly ill appearing HEENT: PERRL, EOMI, conjunctiva clear Ears: canals clear. TMs without erythema, bulge, or effusion Sinuses: non-tender frontal sinus, non-tender maxillary sinuses Neck: supple, no thyromegaly, no lymphadenopathy HEART: regular rate and rhythm, no murmurs LUNGS: clear to auscultation, no wheezes or crackles, no increased WOB ASSESSMENT/PLAN: 1. Influenza-like illness - ICD9: 487.1, ICD10: J11.1 (primary diagnosis) 2. Exposure to COVID-19 virus - ICD9: V01.79, ICD10: Z20.822 - probable COVID-19. - Discussed supportive care treatment with home isolation, rest, cold medicine, and analgesia. - Red flags to seek further treatment include chest pain, shortness of breath, and lethargy; in the ER if severe. - COVID AND INFLUENZA A/B NAAT, ROUTINE -plan to send Paxlovid prescription to [facility] pharmacy if she test positive. No drug interactions with Paxlovid. She had a normal GFR July 2021 and reports normal lab work with her PCP this fall. John Back MD Referring Provider: SELF [200] Allergies As of Date: 07/24/2023 (No Known Allergies) Date Reviewed: 07/24/2023 Reviewed by: Anais Byrd LPN - Fully Assessed Reason for Visit: Sore Throat [200] Cmt: ST, ISAACS, nausea, dizzy and bodyaches-exposed to COVID-woke up with symptoms Primary Visit Diagnosis:Influenza-l babs illness [J11.1] Other Visit Diagnosis:Exposure to COVID-19 virus [Z20.822] Order(s):COVID AND INFLUENZA A/B NAAT, ROUTINE [SQCOVFLU] Order #: [id number] FUTURE COVID AND INFLUENZA A/B NAAT, ROUTINE [SQCOVFLU] Order #: [id number]. #:[id number] Prescriptions as of 07/24/2023 - ondansetron orally disintegrating (ZOFRAN ODT) 4 mg disintegrating tablet Take 1 tablet by mouth every 8 hours. - divalproex ER (DEPAKOTE ER) 500 mg 24 hr tablet Take 500 mg by mouth twice daily. - levothyroxine (SYNTHROID) 100 mcg tablet Take 100 mcg by mouth every morning. Take on an empty stomach. - albuterol HFA (PROVENTIL HFA, VENTOLIN HFA) 90 mcg/actuation inhaler Inhale 2 Puffs as instructed every 6 hours as needed for wheezing/shortness of breath. - RESTASIS 0.05 % ophthalmic emulsion - fluorometholone (FML LIQUID FILM) 0.1 % ophthalmic suspension - divalproex DR (DEPAKOTE) 500 mg EC tablet Take 500 mg by mouth once daily. - SUMAtriptan-Naproxen 85-500 mg per tablet Take 1 tablet by mouth as needed. - propranolol ER (INDERAL LA) 160 mg Cs24 Take 160 mg by mouth once daily. Problem List As Of Date 07/24/2023 Noted Resolved Abscess of left breast [N61.1] 02/01/2016 Left breast abscess [N61.1] 04/07/2017 Medications Discontinued During This Encounter Prescriptions - benzonatate (TESSALON PERLES) 100 mg capsule (Discontinued) Reported on 07/24/2023 - benzonatate (TESSALON PERLES) 10 (more content not included)... Normal [facility] FLUABV + SARS-CoV-2 Pnl Resp RAJEEV+prbon 07-24-2023 Influenza virus A and B RNA and SARS-CoV-2 (COVID-19) N gene panel RAJEEV+probe (Resp) COVID 19 RESULT: Not detected The method used is RT-PCR or an equivalent NAAT method. Reference Range (the expected result in uninfected individuals): Not detected INFLUENZA A PCR: Not detected INFLUENZA B PCR: Not detected Normal [facility] Comment on above: Performed By: #### 9 5422-2 ####[facility] LABCLIA [id number] [place] [address] [place] Absolute lymphocyte countOrd ered By: Olesya Kohli on 05-28-2023 Lymphocytes Auto (Unsp spec) [#/Vol] 6.30 10*3/uL 0.83-4.51 [facility] Basophil percentageOrdered B y: Olesya Kohli on 05-28-2023 Basophils/100 WBC (Bld) 0.3 % 0-1 [facility] Bilirubin [Mass/Vol] 0.40 mg/dL 0.20-1.00 [facility] Comment on above: For patients on eltr ombopag therapy, use of Dimension [place] TBIL is not recommended. Chloride [Moles/Vol] 108 mmol/L 98-107 [facility] Cholesterol [Mass/Vol] 139 mg/dL <200 [facility] Comment on above: <200 mg/dL Desirable 200-240 mg/dL Borderline >240 mg/dL High Risk Eosinophils/100 WBC (Bld) 0.0 % 0-5 [facility] Glucose [Mass/Vol] 72 mg/dL 74-106 [facility] Neutrophils (Bld) [#/Vol] 6.4 10*3/uL 2.0-7.7 [facility] Neutrophils/100 WBC (Bld) 46.3 % 47-70 [facility] Potassium [Moles/Vol] 3.9 mmol/L 3.5-5.1 [facility] Protein [Mass/Vol] 6.7 g/dL 6.4-8.2 [facility] Sodium [Moles/Vol] 141 mmol/L 136-145 [facility] Triglyceride [Mass/Vol] 106 mg/dL <199 [facility] Comment on above: The drugs N-Acetylcy steine and Metamizole may falsely depress this assay.Serum Triglycerides Reference Interval Normal <150 mg/dL Borderline high 150 - 199 mg/dL High 200 - 499 mg/dL Very High > or = 500 mg/dL WBC (Bld) [#/Vol] 13.8 10*3/uL 4.4-11.0 [facility] Blood erythrocytes count (nu mber/volume)Ordered By: Olesya Kohli on 05-28-2023 RBC (Bld) [#/Vol] 4.86 10*6/uL 4.2-5.4 [facility] Blood hemoglobin measurement (mass/volume)Ordered By: Olesya Kohli on 05-28-2023 Hemoglobin (Bld) [Mass/Vol] 15.9 g/dL 12.0-15.0 [facility] Blood lymphocytes/100 leukoc ytesOrdered By: [place] Seun on 05-28-2023 Lymphocytes/100 WBC (Bld) 45.8 % 19-41 [facility] Blood manual differential co mment interpretation (narrative result)Ordered By: Olesya Kohli on 05-28-2023 Manual differential comment Kuldip (Bld) [Interp] SCANNED [facility] Blood monocytes/100 leukocyt esOrdered By: Olesyajocelin Kohli on 05-28-2023 Monocytes/100 WBC (Bld) 6.5 % 0-10 [facility] Blood platelet mean volumeOr dered By: Olesyajocelin Kohli on 05-28-2023 Platelet mean volume (Bld) [Entitic vol] 10.7 fL 6.2-12.0 [facility] Determination of erythrocyte mean corpuscular volume (MCV)Ordered By: Olesyajocelin Kohli on 05-28-2023 MCV (RBC) [Entitic vol] 99.0 fL 81-99 [facility] Hematocrit Auto (Bld) [Volum e fraction]Ordered By: Olesyajocelin Kohli on 05-28-2023 Hematocrit (Bld) [Volume fraction] 48.1 % 37-47 [facility] Laboratory - Chemistry and C hemistry - challengeOrdered By: [place] Seun on 05-28-2023 ALP [Catalytic activity/Vol] 57 U/L 45-117 [facility] ALT [Catalytic activity/Vol] 34 U/L 13-56 [facility] CO2 [Moles/Vol] 28.0 mmol/L 21.0-32.0 [facility] Cobalamin (Vitamin B12) [Mass/Vol] 550 pg/mL 211-911 [facility] Free T4 [Mass/Vol] 1.37 ng/dL 0.76-1.46 [facility] Globulin (S) [Mass/Vol] 3.5 g/dL 2.2-4.2 [facility] Urea nitrogen/Creatinine [Mass ratio] 32.3 mg/mg 10-20 [facility] Laboratory - Hematology and Cell countsOrdered By: Olesya Kohli on 05-28-2023 Erythrocyte distribution width (RBC) [Entitic vol] 45.2 fL 35.1-43.9 [facility] Erythrocyte distribution width (RBC) [Ratio] 12.5 % 11.6-14.6 [facility] Immature granulocytes/100 WBC (Bld) 1.100 % 0.0-0.9 [facility] Comment on above: IG% - Immature Granu locytes (promyelocytes, myelocytes and metamyelocytes) > 1% indicates that a LEFT SHIFT is Present. MCH (RBC) [Entitic mass] 32.7 pg 27.0-32.0 [facility] Nucleated RBC/100 WBC (Bld) [Ratio] 0 % 0-5 [facility] MCHC Auto (RBC) [Mass/Vol]Or dered By: Olesya Kohli on 05-28-2023 MCHC (RBC) [Mass/Vol] 33.1 g/dL 32-36 [facility] No Panel InformationOrdered By: Olesya Kohli on 05-28-2023 Estimated GFR (MDRD) Amer 87 mL/min >60 [facility] Comment on above: GFR Calc Estimated GFR (MDRD) Non-Af Amer 72 mL/min >60 [facility] Comment on above: Non- GFR Calc Thyroid Stimulating Hormone (TSH) 0.47 uIU/mL 0.358-3.74 [facility] Vitamin D 25-Hydroxy 46.5 ng/mL [facility] Comment on above: Vitamin D 25(OH) Sta tus Range Deficiency <20 ng/mL (50nmol/L) Insufficiency 20 - 30 ng/mL (50 - 75 nmol/L) Sufficiency 30 - 100 ng/mL (75 - 250 nmol/L) Toxicity >100 ng/mL (>250 nmol/L) Platelets bldOrdered By: Samir Kohli on 05-28-2023 Platelets (Bld) [#/Vol] 279 10*3/uL 150-450 [facility] Serum or plasma albumin asia urement (mass/volume)Ordered By: Olesya Kohli on 05-28-2023 Albumin [Mass/Vol] 3.2 g/dL 3.2-5.0 [facility] Serum or plasma albumin/glob ulin mass ratioOrdered By: Olesya Kohli on 05-28-2023 Albumin/Globulin [Mass ratio] 0.9 {ratio} 0.9-2.4 [facility] Serum or plasma calcium asia urement (mass/volume)Ordered By: Olesya Kohli on 05-28-2023 Calcium [Mass/Vol] 9.4 mg/dL 8.5-10.1 [facility] Serum or plasma cholesterol in HDL measurement (mass/volume)Ordered By: Olesya Kohli on 05-28-2023 Cholesterol in HDL [Mass/Vol] 52 mg/dL >40 [facility] Comment on above: The drugs N-Acetylcy steine and Metamizole may falsely depress this assay. Reference Range HDL <40 mg/dL Low HDL Cholesterol HDL >or= 60 mg/dL High HDL Cholesterol Serum or plasma cholesterol in VLDL measurement (mass/volume)Ordered By: Olesya Kohli on 05-28-2023 Cholesterol in VLDL [Mass/Vol] 21 mg/dL 5-40 [facility] Serum or plasma creatinine m easurement (mass/volume)Ordered By: Olesya Kohli on 05-28-2023 Creatinine [Mass/Vol] 0.87 mg/dL 0.55-1.02 [facility] Comment on above: The validity of the calculated GFR & GFRAA in patients over 70 years has not been determined. Clinical correlation is essential. Serum or plasma low density lipoprotein (LDL) cholesterol measurement (mass/volume)Ordered By: Olesya Kohli on 05-28-2023 Cholesterol in LDL [Mass/Vol] 66 mg/dL 0-130 [facility] Serum or plasma urea nitroge n measurement (mass/volume)Ordered By: Olesya Kohli on 05-28-2023 Urea nitrogen [Mass/Vol] 28 mg/dL 7-18 [facility] Thin prep Papanicolaou smear with manual screeningOrdered By: Olesya Kohli on 05-28-2023 Thin prep Papanicolaou smear with manual screening 9 U/L 15-37 [facility] Thin prep Papanicolaou smear with manual screening 5 5-15 [facility] Cookie 05-10-2023 CNPN Telephone (UCWSTR) NATALY NASSAR ([id number]) 1970 F Date Time Provider Department 05/10/23 GELY CUADRA [facility] During your visit today, we recorded the following information about you: Jose Kirby MA 05/10/2023 9:23 AM Signed ----- Message from Gely Cuadra APRN.HEALTH SCIENCE INSTRUCTOR sent at 05/10/2023 8:06 AM EDT ----- Urine culture did not show clear evidence of infection, however it appears sample may have been contaminated with skin bacteria during collection. If not improving, recommend follow up with PCP. LILLIAN Conley Alexandra, MA 05/10/2023 9:24 AM Signed Left VM instructing patient to return call to receive results. Jose Kirby MA Allergies As of Date: 05/10/2023 (No Known Allergies) Date Reviewed: 05/08/2023 Reviewed by: Tamanna Medley LPN - Fully Assessed Reason for Visit: Results [95] Prescriptions as of 05/12/2023 - ACETAMINOPHEN/PAMABRO M (MIDOL ORAL) Take by mouth as needed. - albuterol HFA (PROVENTIL HFA, VENTOLIN HFA) 90 mcg/actuation inhaler Inhale 2 Puffs as instructed every 6 hours as needed for wheezing/shortness of breath. - benzonatate (TESSALON PERLE) 100 mg capsule Take 2 capsules by mouth three times daily as needed. - benzonatate (TESSALON PERLES) 100 mg capsule Take 1-2 capsules by mouth three times daily as needed. - benzonatate (TESSALON PERLES) 100 mg capsule Take 1 capsule by mouth three times a day as needed for cough. - Cholecalciferol, Vitamin D3, (VITAMIN D-3) 2,000 unit cap Take 1 tablet by mouth once daily. - divalproex DR (DEPAKOTE) 500 mg EC tablet Take 500 mg by mouth once daily. - divalproex ER (DEPAKOTE ER) 500 mg 24 hr tablet Take 500 mg by mouth twice daily. - ferrous sulfate 325 mg (65 mg iron) tablet Take 325 mg by mouth daily with breakfast. - fluorometholone (FML LIQUID FILM) 0.1 % ophthalmic suspension - levothyroxine (SYNTHROID) 100 mcg tablet Take 100 mcg by mouth every morning. Take on an empty stomach. - levothyroxine (SYNTHROID) 50 mcg tablet Take 112 mcg by mouth daily before breakfast. - LORATADINE (CLARITIN ORAL) Take by mouth once daily. - mometasone (NASONEX) 50 mcg/actuation nasal spray Use 2 Sprays in the nose once daily. - Brunswick-3 Fatty Acids-Vitamin E (FISH OIL) 1,000 mg cap Take 1 capsule by mouth as needed. - omeprazole (PRILOSEC) 20 mg capsule Take 20 mg by mouth once daily. - ondansetron orally disintegrating (ZOFRAN ODT) 4 mg disintegrating tablet Take 1 tablet by mouth every 8 hours. - propranolol ER (INDERAL LA) 160 mg Cs24 Take 160 mg by mouth once daily. - RESTASIS 0.05 % ophthalmic emulsion - SUMAtriptan-Naproxen (TREXIMET) 85-500 mg per tablet Take 1 tablet by mouth as needed. - SUMAtriptan-Naproxen 85-500 mg per tablet Take 1 tablet by mouth as needed. Problem List As Of Date 05/10/2023 Noted Resolved Abscess of left breast [N61.1] 02/01/2016 Left breast abscess [N61.1] 04/07/2017 Encounter Status:Closed by JOSE KIRBY on 05/12/[address] [facility] Bacteria Ur Culton 3 Bacteria identified Cx Nom (U) ORGANISM ID: 1 10,000 -<50,000 CFU/ml Mixed microbiota No further workup. Mixed microbiota can be due to???urine???contamin ation with skin bacteria at time of collection or presence of a long-term urinary catheter. If a new culture is needed, please consider re-education of the patient on proper midstream collection technique or straight catheterization for???urine???collect ion. Normal [facility] Comment on above: Performed By: #### 6 30-4 ####[facility] LABCLIA [id number] [facility] [id number] OF [facility] CNOVon 05-08-2023 CNOV Office Visit (UCWSTR ) NATALY NASSAR ([id number]) 1970 F Date Time Provider Department 05/08/23 4:15 PM ADILIA RAND [facility] During your visit today, we recorded the following information about you: Temperature Pulse Respiration Blood pressure 98.5 degrees 71/minute 20/minute 129/85 Weight 69.7 kg Adilia Rand APRN.HEALTH SCIENCE INSTRUCTOR 05/08/2023 5:43 PM Signed This note was created using NoteWriter. Subjective Nataly Nassar is a 53 year old female. 53 year old female with PMH Sjogrens, thyroid, and migraines presents with illness. UTI Acute onset one week ago . +burning sensation Denies that she is sexually active. Denies vaginal discharge Denies vaginal discharge. She was seen here 05/02/23 05/04/23 urine culture negative She called in to our nurse triage line on 05/04/23 for continued symptoms. She did not follow up with PCP. Flu Sx Acute onset this morning. Woke up feeling crappy + chills + cough + nausea +post nasal drainage +fatigue Feelings of lightheaded Decreased PO intake The history is provided by the patient. No language teacher was used. UTI This is a recurrent problem. The current episode started more than 1 week ago. The problem occurs every urination. The problem has not changed since onset.The quality of the pain is described as burning. The pain is at a severity of 5/10. The pain is moderate. There has been no fever. She is Not sexually active. There is No history of pyelonephritis. Associated symptoms include nausea. Pertinent negatives include no chills, no sweats, no vomiting, no discharge, no frequency, no hematuria, no hesitancy, no possible , no urgency and no flank pain. She has tried nothing for the symptoms. Her past medical history does not include kidney stones, single kidney, urological procedure, recurrent UTIs, urinary stasis or catheterization. Flu Like Symptoms This is a new problem. The current episode started today. The problem occurs constantly. The problem has been unchanged. Associated symptoms include congestion, coughing, fatigue, headaches, myalgias, nausea and a sore throat. Pertinent negatives include no abdominal pain, anorexia, arthralgias, change in bowel habit, chest pain, chills, diaphoresis, fever, joint swelling, neck pain, numbness, rash, swollen glands, urinary symptoms, vertigo, visual change, vomiting or weakness. Nothing aggravates the symptoms. She has tried nothing for the symptoms. The treatment provided no relief. PAST MEDICAL HISTORY Diagnosis Date Hypothyroidism Migraines Psoriasis Psoriatic arthritis (HCC) Sciatica Sjogren's syndrome (HCC) PAST SURGICAL HISTORY Procedure Laterality Date COLONOSCOPY Unsure of specific date DEBRIDEMENT SUBCUTANEOUS TISSUE 20 SQ CM/< Left 8-16 PAST SURGICAL HISTORY OF mole removal US BREAST NEEDLE CORE BIOPSY LT Left 01/2016 ALLERGIES Patient has no known allergies. MEDICATIONS ACETAMINOPHEN/PAMABRO M (MIDOL ORAL) Take by mouth as needed. (Patient not taking: Reported on 10/16/2021 ) albuterol HFA (PROVENTIL HFA, VENTOLIN HFA) 90 mcg/actuation inhaler Inhale 2 Puffs as instructed every 6 hours as needed for wheezing/shortness of breath. benzonatate (TESSALON PERLE) 100 mg capsule Take 2 capsules by mouth three times daily as needed. (Patient not taking: Reported on 10/16/2021 ) benzonatate (TESSALON PERLES) 100 mg capsule Take 1-2 capsules by mouth three times daily as needed. (Patient not taking: Reported on 05/07/2022) benzonatate (TESSALON PERLES) 100 mg capsule Take 1 capsule by mouth three times a day as needed for cough. Cholecalciferol, Vitamin D3, (VITAMIN D-3) 2,000 unit cap Take 1 tablet by mouth once daily. (Patient not taking: Reported on 08/25/2021 ) divalproex DR (DEPAKOTE) 500 mg EC tablet Take 500 mg by mouth once daily. divalproex ER (DEPAKOTE ER) 500 mg 24 hr tablet Take 500 mg by mouth twice daily. ferrous sulfate 325 mg (65 mg iron) tablet Take 325 mg by mouth daily with breakfast. (Patient not taking: Reported on 08/25/2021 ) fluconazole (DIFLUCAN) 150 mg tablet Take 1 tablet by mouth once daily for 1 day. fluorometholone (FML LIQUID FILM) 0.1 % ophthalmic suspension levothyroxine (SYNTHROID) 100 mcg tablet Take 100 mcg by mouth every morning. Take on an empty stomach. levothyroxine (SYNTHROID) 50 mcg tablet Take 112 mcg by mouth daily before breakfast. LORATADINE (CLARITIN ORAL) Take by mouth once daily. (Patient not taking: Reported on 08/25/2021 ) mometasone (NASONEX) 50 mcg/actuation nasal spray Use 2 Sprays in the nose once daily. Brunswick-3 Fatty Acids-Vitamin E (FISH OIL) 1,000 mg cap Take 1 capsule by mouth as needed. (Patient not taking: Reported on 08/25/2021 ) omeprazole (PRILOSEC) 20 mg capsule Take 20 mg by mouth once daily. ondansetron orally disintegrating (ZOFRAN ODT) 4 mg disintegrati (more content not included)... Normal [facility] ROUTINE FLU A/B + RSVon 04-27 FLUAV RNA RAJEEV+probe Ql (Unsp spec) Not detected Normal Not Detected [facility] Comment on above: Order Comment: Speci men Type: SWAB OF INTERNAL NOSEOrdering Facility: [facility] Address: [address] [place] [address] Performed By: #### R TFRSV, 09154-4 ####[facility] LABCLIA [id number] [facility] [id number] [place] [address] [place] FLUBV RNA RAJEEV+probe Ql (Unsp spec) Not detected Normal Not Detected [facility] Comment on above: Order Comment: Speci men Type: SWAB OF INTERNAL NOSEOrdering Facility: [facility] Address: [address] [place] [address] Performed By: #### R TFRSV, 63222-1 ####[facility] LABCLIA [id number] [place] [address] [place] RSV A RNA RAJEEV+probe Ql (Unsp spec) Not detected Normal Not Detected [facility] Comment on above: Order Comment: Speci men Type: SWAB OF INTERNAL NOSEOrdering Facility: [facility] Address: [address] [place] [address] Performed By: #### R TFRSV, 33466-9 ####[facility] LABCLIA [id number] [place] [address] [place] SARS-CoV-2 RNA Resp Ql RAJEEV+p paule[place]o 05-08-2023 SARS-CoV-2 (COVID-19) RNA RAJEEV+probe Ql (Resp) COVID 19 RESULT: Not detected The method used is RT-PCR or an equivalent NAAT method. Reference Range (the expected result in uninfected individuals): Not detected Normal [facility] Comment on above: Performed By: #### R TFRSV, 66298-7 ####[facility] LABIA [id number] [place] [address] [place] UA DIP, URINE (POC)on 2022 BILIRUBIN UA (POCT) Negative Negative [facility] CLARITY UA (POCT) Clear [facility] COLOR UA (POCT) Yellow [facility] GLUCOSE UA (POCT) Negative Negative mg/dL [facility] Hemoglobin Ql (U) Negative Negative [facility] KETONE UA (POCT) Trace Negative mg/dL [facility] LEUKOCYTES UA (POCT) Small Abnormal Negative [facility] NITRITE UA (POCT) Negative Negative [facility] PH UA (POCT) 5.0 4.5 - 8.0 [facility] Protein Ql (U) 30 mg/dL Abnormal Negative mg/dL [facility] SPECIFIC GRAVITY UA (POCT) >=1.030 1.005 - 1.030 [facility] UROBILINOGEN UA (POCT) 0.2 E.U./dL Rhea l E.U./dL [facility]NATALY ([id number]) 1970 F Date Time Provider Department 05/04/23 ADILIA [facility] During your visit today, we recorded the following information about you: Adilia Rand APRN.[facility] 05/04/2023 8:20 AM Signed Please inform patient that her urine culture revealed mixed bacteria, this can occur with a contaminated specimen at time of collection. IF she is continuing to have symptoms she needs to follow up with her PCP. Please advise Clarice Crook 05/04/2023 8:45 AM Signed Left message for patient to return call. Clarice Figueroa 05/05/2023 7:45 AM Signed NOC notified pt. Clarice Crook Allergies As of Date: 05/04/2023 (No Known Allergies) Date Reviewed: 05/02/2023 Reviewed by: Tamanna Medley LPN - Fully Assessed Reason for Visit: Results [95] Prescriptions as of 05/05/2023 - ondansetron orally disintegrating (ZOFRAN ODT) 4 mg disintegrating tablet Take 1 tablet by mouth every 8 hours. - divalproex ER (DEPAKOTE ER) 500 mg 24 hr tablet Take 500 mg by mouth twice daily. - levothyroxine (SYNTHROID) 100 mcg tablet Take 100 mcg by mouth every morning. Take on an empty stomach. - albuterol HFA (PROVENTIL HFA, VENTOLIN HFA) 90 mcg/actuation inhaler Inhale 2 Puffs as instructed every 6 hours as needed for wheezing/shortness of breath. - benzonatate (TESSALON PERLES) 100 mg capsule Take 1-2 capsules by mouth three times daily as needed. - benzonatate (TESSALON PERLE) 100 mg capsule Take 2 capsules by mouth three times daily as needed. - RESTASIS 0.05 % ophthalmic emulsion - fluorometholone (FML LIQUID FILM) 0.1 % ophthalmic suspension - levothyroxine (SYNTHROID) 50 mcg tablet Take 112 mcg by mouth daily before breakfast. - mometasone (NASONEX) 50 mcg/actuation nasal spray Use 2 Sprays in the nose once daily. - ferrous sulfate 325 mg (65 mg iron) tablet Take 325 mg by mouth daily with breakfast. - divalproex DR (DEPAKOTE) 500 mg EC tablet Take 500 mg by mouth once daily. - SUMAtriptan-Naproxen 85-500 mg per tablet Take 1 tablet by mouth as needed. - propranolol ER (INDERAL LA) 160 mg Cs24 Take 160 mg by mouth once daily. - omeprazole (PRILOSEC) 20 mg capsule Take 20 mg by mouth once daily. - LORATADINE (CLARITIN ORAL) Take by mouth once daily. - Cholecalciferol, Vitamin D3, (VITAMIN D-3) 2,000 unit cap Take 1 tablet by mouth once daily. - ACETAMINOPHEN/PAMABRO M (MIDOL ORAL) Take by mouth as needed. - SUMAtriptan-Naproxen (TREXIMET) 85-500 mg per tablet Take 1 tablet by mouth as needed. - Brunswick-3 Fatty Acids-Vitamin E (FISH OIL) 1,000 mg cap Take 1 capsule by mouth as needed. Problem List As Of Date 05/04/2023 Noted Resolved Abscess of left breast [N61.1] 02/01/2016 Left breast abscess [N61.1] 04/07/2017 Encounter Status:Closed by CLARICE CROOK on 05/05/[address] [facility] Bacteria Ur Culton 3 Bacteria identified Cx Nom (U) ORGANISM ID: 1 10,000 -<50,000 CFU/ml Mixed microbiota No further workup. Mixed microbiota can be due to???urine???contamin ation with skin bacteria at time of collection or presence of a long-term urinary catheter. If a new culture is needed, please consider re-education of the patient on proper midstream co llection technique or straight catheterization for???urine???collect ion. Normal [facility] Comment on above: Performed By: #### 6 30-4 ####[facility] LABCLIA [id number] [facility] [id number] [id number] [place] CNOVon 05-02-2023 CNOV Office Visit (UCWSTR ) NATALY NASSAR ([id number]) 1970 F Date Time Provider Department 05/02/23 5:45 PM MIRIAM MILLARD [facility] During your visit today, we recorded the following information about you: Temperature Pulse Respiration Blood pressure 97.7 degrees 70/minute 18/minute 118/80 Weight 68.4 kg Miriam Millard APRN.HEALTH SCIENCE INSTRUCTOR 05/02/2023 6:35 PM Signed Subjective The history is provided by the patient. No language teacher was used. HPI Nataly Nassar is a 53 year old female who presents today for CC of frequency of urination for 3 days, headache and nausea from migraine. She is also having right sided sinus pressure that started yesterday, clear drainage. She denies any fever, chills body aches. She has used Imitrex and naproxen, zofran which has helped migraine, slightly improving. She denies any vaginal discharge, itching or odor. BP 118/80 Pulse 70 Temp 36.5 ?C (97.7 ?F) Resp 18 Wt 68.4 kg (150 lb 12.8 oz) LMP (LMP Unknown) SpO2 99% BMI 25.88 kg/m? Social History Tobacco Use Smoking status: Never Smokeless tobacco: Never Substance Use Topics Alcohol use: No Drug use: No PAST MEDICAL HISTORY Diagnosis Date Hypothyroidism Migraines Psoriasis Psoriatic arthritis (HCC) Sciatica Sjogren's syndrome (HCC) I have confirmed and edited as necessary, the [facility] Review of Systems Constitutional: Negative for chills and fever. HENT: Positive for sinus pain. Negative for congestion, ear pain and sore throat. Respiratory: Negative for cough, sputum production, shortness of breath and wheezing. Cardiovascular: Negative for chest pain. Gastrointestinal: Negative for abdominal pain. Genitourinary: Positive for frequency. Negative for dysuria, flank pain, hematuria and urgency. Musculoskeletal: Negative for myalgias. Neurological: Positive for headaches. Objective Physical Exam Vitals and nursing note reviewed. Constitutional: Appearance: Normal appearance. HENT: Head: Normocephalic and atraumatic. Right Ear: Tympanic membrane, ear canal and external ear normal. Left Ear: Tympanic membrane, ear canal and external ear normal. Nose: No mucosal edema, congestion or rhinorrhea. Right Sinus: No maxillary sinus tenderness or frontal sinus tenderness. Left Sinus: No maxillary sinus tenderness or frontal sinus tenderness. Mouth/Throat: Pharynx: Uvula midline. No oropharyngeal exudate or posterior oropharyngeal erythema. Cardiovascular: Rate and Rhythm: Normal rate and regular rhythm. Heart sounds: Normal heart sounds. Pulmonary: Effort: Pulmonary effort is normal. Breath sounds: Normal breath sounds. Abdominal: General: Bowel sounds are normal. There is no abdominal bruit. Palpations: Abdomen is not rigid. There is no mass or pulsatile mass. Tenderness: There is no abdominal tenderness. There is no guarding or rebound. Negative signs include Mary's sign and McBurney's sign. Lymphadenopathy: Head: Right side of head: No submental, submandibular or tonsillar adenopathy. Left side of head: No submental, submandibular or tonsillar adenopathy. Cervical: No cervical adenopathy. Skin: General: Skin is warm and dry. Neurological: Mental Status: She is alert and oriented to person, place, and time. Psychiatric: Mood and Affect: Affect normal. ASSESSMENT/PLAN: 1. Burning with urination - ICD9: 788.1, ICD10: R30.0 (primary diagnosis) acute - UA positive for ketones, elevated specific gravity - appears to be decreased fluid intake - will send urine for culture, if positive will call with results and treatment needed. - UA DIP, URINE (POC) - URINE CULTURE 2. Nausea - ICD9: 787.02, ICD10: R11.0 Renew zofran, use as ordered 3. Migraine with aura, not intractable, without status migrainosus - ICD9: 346.00, ICD10: G43.109 Improving, continue prescribed medications, follow up with PCP prn 4. Sinus pain - ICD9: 478.19, ICD10: J34.89 - appears to be allergies Zyrtec 10 mg By mouth daily at bedtime Flonase 2 sprays in each nostril once a day When to seek higher level of care discussed Follow up with PCP prn Diagnosis and treatment plan were discussed and questions were answered to the patient's satisfaction. Pt acknowledged understanding of concepts and follow up plan. Specific signs and symptoms that would indicate the need for higher level of care were discussed in detail warranting prompt ER evaluation. RADHA Reyes Tonya, APRN.CNP 05/02/2023 6:26 PM Signed No signs of Urinary tract infection Increase fluid intake Zofran as needed for nausea Naproxen as prescribed Zyrtec 10 mg By mouth daily at bedtime Flonase 2 sprays in each nostril once a day * Seek medical care immediately, call 911, go to ER if you have chest pain, difficulty breathing, shortness of breath, inability to swallow. Allergies As of Date: 05/02 (more content not included)... Normal [facility] UA DIP, URINE (POC)on 2022 BILIRUBIN UA (POCT) Moderate Abnormal Negative [facility] CLARITY UA (POCT) Cloudy [facility] COLOR UA (POCT) Dark yellow [facility] GLUCOSE UA (POCT) Negative Negative mg/dL [facility] Hemoglobin Ql (U) Negative Negative [facility] KETONE UA (POCT) 15 mg/dL Abnormal Negative mg/dL [facility] LEUKOCYTES UA (POCT) Negative Negative [facility] NITRITE UA (POCT) Negative Negative [facility] PH UA (POCT) 5.0 4.5 - 8.0 [facility] Protein Ql (U) 30 mg/dL Abnormal Negative mg/dL [facility] SPECIFIC GRAVITY UA (POCT) >=1.030 1.005 - 1.030 [facility] UROBILINOGEN UA (POCT) 0.2 E.U./dL Rhea l E.U./dL [facility] CNOVon 02-24-2023 CNOV Office Visit (UCWSTR ) NATALY NASSAR ([id number]) 1970 F Date Time Provider Department 02/24/23 6:45 PM SHIRA HUBBARD [facility] During your visit today, we recorded the following information about you: Temperature Pulse Respiration Blood pressure 97.6 degrees 76/minute 16/minute 124/70 Weight 67.7 kg Shira Hubbard APRN.HEALTH SCIENCE INSTRUCTOR 02/24/2023 6:58 PM Signed CC: Patient presents with: Nausea: x 1 day, after migraine Patient gets frequent migraines. They are accompanied with nausea. Patient does see a neurologist for this. Patient said she has used Phenergan in the past with no side effects. Patient denies any abdominal pain fever chills. Patient denies other symptoms. HPI: Nataly Nassar is a 52 year old female who presents to the office with complaint of nausea for a few days. Symptoms are staying the same. Associated symptoms includes nausea. Denies body aches, fever, cough, dyspnea, vomiting , and diarrhea. Treatments tried include nothing so far. with no relief of symptoms. Sick contacts: unknown. History of asthma, frequent episodes of bronchitis, chronic bronchitis, bronchiectasis or COPD: No Smoker: No Seasonal/environmenta l allergies: No The ROS is otherwise negative. The patient's pmh, medications, allergies, and past visits are reviewed. PHYSICAL EXAM: BP 124/70 Pulse 76 Temp 36.4 ?C (97.6 ?F) Resp 16 Wt 67.7 kg (149 lb 3.2 oz) LMP (LMP Unknown) SpO2 98% BMI 25.61 kg/m? General appearance: alert, cooperative, pleasant, in no acute distress Head: Normocephalic Eyes: EOM's intact, conjunctiva pink and moist, no icterus, sclera white, non-injected Abdomen: Soft nondistended bowel sounds within normal limits. No tenderness on palpation. PAST MEDICAL HISTORY Diagnosis Date Hypothyroidism Migraines Psoriasis Psoriatic arthritis (HCC) Sciatica Sjogren's syndrome (HCC) PAST SURGICAL HISTORY Procedure Laterality Date COLONOSCOPY Unsure of specific date DEBRIDEMENT SUBCUTANEOUS TISSUE 20 SQ CM/< Left 7-8-16 PAST SURGICAL HISTORY OF mole removal US BREAST NEEDLE CORE BIOPSY LT Left 01/2016 ALLERGIES Patient has no known allergies. MEDICATIONS divalproex ER (DEPAKOTE ER) 500 mg 24 hr tablet Take 500 mg by mouth twice daily. levothyroxine (SYNTHROID) 100 mcg tablet Take 100 mcg by mouth every morning. Take on an empty stomach. albuterol HFA (PROVENTIL HFA, VENTOLIN HFA) 90 mcg/actuation inhaler Inhale 2 Puffs as instructed every 6 hours as needed for wheezing/shortness of breath. RESTASIS 0.05 % ophthalmic emulsion fluorometholone (FML LIQUID FILM) 0.1 % ophthalmic suspension levothyroxine (SYNTHROID) 50 mcg tablet Take 112 mcg by mouth daily before breakfast. divalproex DR (DEPAKOTE) 500 mg EC tablet Take 500 mg by mouth once daily. SUMAtriptan-Naproxen 85-500 mg per tablet Take 1 tablet by mouth as needed. propranolol ER (INDERAL LA) 160 mg Cs24 Take 160 mg by mouth once daily. omeprazole (PRILOSEC) 20 mg capsule Take 20 mg by mouth once daily. promethazine (PHENERGAN) 25 mg suppository 1 Suppository by RECTAL route every 6 hours as needed for nausea/vomiting for up to 7 days. benzonatate (TESSALON PERLES) 100 mg capsule Take 1-2 capsules by mouth three times daily as needed. (Patient not taking: Reported on 05/07/2022) benzonatate (TESSALON PERLE) 100 mg capsule Take 2 capsules by mouth three times daily as needed. (Patient not taking: Reported on 10/16/2021 ) mometasone (NASONEX) 50 mcg/actuation nasal spray Use 2 Sprays in the nose once daily. ferrous sulfate 325 mg (65 mg iron) tablet Take 325 mg by mouth daily with breakfast. (Patient not taking: Reported on 08/25/2021 ) LORATADINE (CLARITIN ORAL) Take by mouth once daily. (Patient not taking: Reported on 08/25/2021 ) Cholecalciferol, Vitamin D3, (VITAMIN D-3) 2,000 unit cap Take 1 tablet by mouth once daily. (Patient not taking: Reported on 08/25/2021 ) ACETAMINOPHEN/PAMABRO M (MIDOL ORAL) Take by mouth as needed. (Patient not taking: Reported on 10/16/2021 ) SUMAtriptan-Naproxen (TREXIMET) 85-500 mg per tablet Take 1 tablet by mouth as needed. [place]-3 Fatty Acids-Vitamin E (FISH OIL) 1,000 mg cap Take 1 capsule by mouth as needed. (Patient not taking: Reported on 08/25/2021 ) FAMILY HISTORY Problem Relation Age of Onset Prostate Cancer Father Diabetes Mother other (heart disease) Mother Diabetes Maternal Grandmother Stroke Maternal Grandmother other (heart disease) Maternal Grandmother other (heart disease) Maternal Grandfather Cancer Maternal Aunt pancreatic cancer Social History Tobacco Use Smoking status: Never Smokeless tobacco: Never Substance Use Topics Alcohol use: No Drug use: No ASSESSMENT/PLAN: 1. Nausea - ICD9: 787.02, ICD10: R11.0 - PROMETHAZINE 25 MG RECTAL SUPPOSITORY Prescription instructions reviewed with patient as appli (more content not included)... Normal [facility] CNOVon 01-14-[address] [facility] Office Visit (UCWSTR ) NATALY NASSAR ([id number]) 1970 F Date Time Provider Department 01/14/23 5:45 PM KIMBERLY BOJORQUEZ WS During your visit today, we recorded the following information about you: Temperature Pulse Respiration Blood pressure 98.3 degrees 79/minute 18/minute 122/68 Weight 69.1 kg Kimberly Bojorquez APRN.CNP 01/14/2023 6:01 PM Signed CC: Patient presents with: Nasal Congestion: Pt reported congestion, drainage x1 day. HPI: Nataly Nassar is a 52 year old female who presents to the office with complaint of respiratory symptoms since yesterday morning. Associated symptoms includes nasal congestion, rhinorrhea, and cough. Denies fever, ear pain, wheezing, dyspnea, and fatigue. Treatments tried include nothing so far. Sick contacts: no. History of asthma, frequent episodes of bronchitis, chronic bronchitis, bronchiectasis or COPD: No Smoker: No Seasonal/environmenta l allergies: Yes does not take anything for her allergies. Was working outside in the yard the day before The ROS is otherwise negative. The patient's pmh, medications, allergies, and past visits are reviewed. PHYSICAL EXAM: BP 122/68 Pulse 79 Temp 36.8 ?C (98.3 ?F) (Tympanic) Resp 18 Wt 69.1 kg (152 lb 6.4 oz) SpO2 98% BMI 26.16 kg/m? General appearance: alert, cooperative, pleasant, in no acute distress Head: Normocephalic Eyes: conjunctiva pink and moist, no icterus, sclera white, non-injected Ears: Right ear: External ear/canal- Normal, TM - clear with good landmarks. Left ear: External ear/canal- Normal, TM - clear with good landmarks Oropharynx:No erythema, exudates or tonsillar hypertrophy. Neck:supple and no adenopathy Heart: Negative. RRR without obvious murmur, gallop, or rubs. No ectopy. Lungs: clear to auscultation, without rales or wheeze, good air exchange ASSESSMENT/PLAN: 1. Viral URI - ICD9: 465.9, ICD10: J06.9 - Discussed viral etiology and rationale for treatment. - Symptomatic treatment with prn analgesia - Supportive care with fluids and rest - The patient may also use OTC cough and cold meds as needed. - Follow up in 7 to 10 dats if symptoms persist or sooner if worsening of symptoms Prescription instructions reviewed with patient as applicable. Potential red flag symptoms discussed with the patient. Reviewed appropriate action plan to take if red flag symptoms occur. Patient agreeable to treatment plan. RADHA Livingston APRN.CNP 01/14/2023 5:53 PM Signed Follow-up in 7 to 10 days if symptoms have not shown any signs of improvement or if worsening Referring Provider: SELF [200] Allergies As of Date: 01/14/2023 (No Known Allergies) Date Reviewed: 01/14/2023 Reviewed by: Beryl Haile LPN - Fully Assessed Reason for Visit: Nasal Congestion [235] Cmt: Pt reported congestion, drainage x1 day. Primary Visit Diagnosis:Viral URI [J06.9] Prescriptions as of 01/14/2023 - divalproex ER (DEPAKOTE ER) 500 mg 24 hr tablet Take 500 mg by mouth twice daily. - levothyroxine (SYNTHROID) 100 mcg tablet Take 100 mcg by mouth every morning. Take on an empty stomach. - albuterol HFA (PROVENTIL HFA, VENTOLIN HFA) 90 mcg/actuation inhaler Inhale 2 Puffs as instructed every 6 hours as needed for wheezing/shortness of breath. - benzonatate (TESSALON PERLES) 100 mg capsule Take 1-2 capsules by mouth three times daily as needed. - benzonatate (TESSALON PERLE) 100 mg capsule Take 2 capsules by mouth three times daily as needed. - RESTASIS 0.05 % ophthalmic emulsion - fluorometholone (FML LIQUID FILM) 0.1 % ophthalmic suspension - levothyroxine (SYNTHROID) 50 mcg tablet Take 112 mcg by mouth daily before breakfast. - mometasone (NASONEX) 50 mcg/actuation nasal spray Use 2 Sprays in the nose once daily. - ferrous sulfate 325 mg (65 mg iron) tablet Take 325 mg by mouth daily with breakfast. - divalproex DR (DEPAKOTE) 500 mg EC tablet Take 500 mg by mouth once daily. - SUMAtriptan-Naproxen 85-500 mg per tablet Take 1 tablet by mouth as needed. - propranolol ER (INDERAL LA) 160 mg Cs24 Take 160 mg by mouth once daily. - omeprazole (PRILOSEC) 20 mg capsule Take 20 mg by mouth once daily. - LORATADINE (CLARITIN ORAL) Take by mouth once daily. - Cholecalciferol, Vitamin D3, (VITAMIN D-3) 2,000 unit cap Take 1 tablet by mouth once daily. - ACETAMINOPHEN/PAMABRO M (MIDOL ORAL) Take by mouth as needed. - SUMAtriptan-Naproxen (TREXIMET) 85-500 mg per tablet Take 1 tablet by mouth as needed. - [place]-3 Fatty Acids-Vitamin E (FISH OIL) 1,000 mg cap Take 1 capsule by mouth as needed. Problem List As Of Date 01/14/2023 Noted Resolved Abscess of left breast [N61.1] 02/01/2016 Left breast abscess [N61.1] 04/07/2017 Other instructions from your clinician: Follow-up in 7 to 10 days if symptoms have not shown any signs of improvement or if worsening Encounter Nu (more content not included)... [facility] NATALY NASSAR ([id number]) 1970 F Date Time Provider Department 11/15/22 MIRIAM MILLARD [facility]WSTR During your visit today, we recorded the following information about you: Miriam Millard APRN.LILLIAN 11/15/2022 1:49 PM Signed Please notify patient that urine culture showed mixture of bacteria which suggests possible contamination upon collection. Advise her to finish the antibiotic if it is helping her symptoms but if not, then she will need to return to provide another specimen. Thank you. Miriam Millard APRN.LILLIAN Haile LPN 11/15/2022 2:10 PM Signed Phone call placed unable to leave a message phone rang, rang. Beryl Moody MA 11/16/2022 8:37 AM Signed Left message for pt to call back. AILYN Reis RN 11/16/2022 1:08 PM Signed Patient returning call from office. Provided information below from Miriam Millard CNP. Patient verbalized understanding. She states that she doesn't feel that she has been on the antibiotics long enough to know if they are helping. She states that she currently has a migraine so she will see how she is feeling and if symptoms do not improve she will return to for another specimen. Patient will contact her neurologist regarding migraine if needed. Allergies As of Date: 11/15/2022 (No Known Allergies) Date Reviewed: 11/14/2022 Reviewed by: Beryl Haile LPN - Fully Assessed Reason for Visit: Results [95] Prescriptions as of 11/16/2022 - nitrofurantoin monohydrate and macrocrystal (MACROBID) 100 mg capsule Take 1 capsule by mouth twice daily for 5 days. - albuterol HFA (PROVENTIL HFA, VENTOLIN HFA) 90 mcg/actuation inhaler Inhale 2 Puffs as instructed every 6 hours as needed for wheezing/shortness of breath. - benzonatate (TESSALON PERLES) 100 mg capsule Take 1-2 capsules by mouth three times daily as needed. - benzonatate (TESSALON PERLE) 100 mg capsule Take 2 capsules by mouth three times daily as needed. - RESTASIS 0.05 % ophthalmic emulsion - fluorometholone (FML LIQUID FILM) 0.1 % ophthalmic suspension - levothyroxine (SYNTHROID) 50 mcg tablet Take 112 mcg by mouth daily before breakfast. - mometasone (NASONEX) 50 mcg/actuation nasal spray Use 2 Sprays in the nose once daily. - ferrous sulfate 325 mg (65 mg iron) tablet Take 325 mg by mouth daily with breakfast. - divalproex DR (DEPAKOTE) 500 mg EC tablet Take 500 mg by mouth once daily. - SUMAtriptan-Naproxen 85-500 mg per tablet Take 1 tablet by mouth as needed. - propranolol ER (INDERAL LA) 160 mg Cs24 Take 160 mg by mouth once daily. - omeprazole (PRILOSEC) 20 mg capsule Take 20 mg by mouth once daily. - LORATADINE (CLARITIN ORAL) Take by mouth once daily. - Cholecalciferol, Vitamin D3, (VITAMIN D-3) 2,000 unit cap Take 1 tablet by mouth once daily. - ACETAMINOPHEN/PAMABRO M (MIDOL ORAL) Take by mouth as needed. - SUMAtriptan-Naproxen (TREXIMET) 85-500 mg per tablet Take 1 tablet by mouth as needed. - [place]-3 Fatty Acids-Vitamin E (FISH OIL) 1,000 mg cap Take 1 capsule by mouth as needed. Problem List As Of Date 11/15/2022 Noted Resolved Abscess of left breast [N61.1] 02/01/2016 Left breast abscess [N61.1] 04/07/2017 Encounter Status:Closed by MIRIAM MILLARD on 11/16/[address] [facility] Bacteria Ur Culton 3 Bacteria identified Cx Nom (U) ORGANISM ID: 1 10,000 -<50,000 CFU/ml Mixed microbiota No further workup. Mixed microbiota can be due to???urine???contamin ation with skin bacteria at time of collection or presence of a long-term urinary catheter. If a new culture is needed, please consider re-education of the patient on proper midstream collection technique or straight catheterization for???urine???collect ion. Normal [facility] Comment on above: Performed By: #### 6 30-4 ####[facility] LABCLIA [id number] [address] OF [facility] CNOVon 11-14-2022 CNOV Office Visit (UCWSTR ) NATALY NASSAR ([id number]) 1970 F Date Time Provider Department 11/14/22 11:15 AM DEANA BRADLEY [facility]WSTR During your visit today, we recorded the following information about you: Temperature Pulse Respiration Blood pressure 97.7 degrees 81/minute 18/minute 130/78 Weight 68 kg SHAILESH Blackmon 11/14/2022 11:28 AM Signed This note was created using Lalalamariter. Subjective Nataly Nassar is a 52 year old female. HPI 52-year-old female presents for sore throat and UTI symptoms. Patient states that she has been having some burning with urination since last week. She states she has a little bit of nausea. No back pain or abdominal pain. No vomiting or diarrhea. No fevers. No blood in the urine. She states that she has had a sore throat for the past 4 days. No known exposure to strep. No difficulty swallowing. No fevers. No cough or other URI symptoms. No other complaints PAST MEDICAL HISTORY Diagnosis Date Hypothyroidism Migraines Psoriasis Psoriatic arthritis (HCC) Sciatica Sjogren's syndrome (HCC) PAST SURGICAL HISTORY Procedure Laterality Date COLONOSCOPY Unsure of specific date DEBRIDEMENT SUBCUTANEOUS TISSUE 20 SQ CM/< Left 7-8-16 PAST SURGICAL HISTORY OF mole removal US BREAST NEEDLE CORE BIOPSY LT Left 01/2016 ALLERGIES Patient has no known allergies. MEDICATIONS albuterol HFA (PROVENTIL HFA, VENTOLIN HFA) 90 mcg/actuation inhaler Inhale 2 Puffs as instructed every 6 hours as needed for wheezing/shortness of breath. RESTASIS 0.05 % ophthalmic emulsion fluorometholone (FML LIQUID FILM) 0.1 % ophthalmic suspension levothyroxine (SYNTHROID) 50 mcg tablet Take 112 mcg by mouth daily before breakfast. SUMAtriptan-Naproxen 85-500 mg per tablet Take 1 tablet by mouth as needed. propranolol ER (INDERAL LA) 160 mg Cs24 Take 160 mg by mouth once daily. omeprazole (PRILOSEC) 20 mg capsule Take 20 mg by mouth once daily. benzonatate (TESSALON PERLES) 100 mg capsule Take 1-2 capsules by mouth three times daily as needed. (Patient not taking: Reported on 05/07/2022) benzonatate (TESSALON PERLE) 100 mg capsule Take 2 capsules by mouth three times daily as needed. (Patient not taking: Reported on 10/16/2021 ) mometasone (NASONEX) 50 mcg/actuation nasal spray Use 2 Sprays in the nose once daily. ferrous sulfate 325 mg (65 mg iron) tablet Take 325 mg by mouth daily with breakfast. (Patient not taking: Reported on 08/25/2021 ) divalproex DR (DEPAKOTE) 500 mg EC tablet Take 500 mg by mouth once daily. LORATADINE (CLARITIN ORAL) Take by mouth once daily. (Patient not taking: Reported on 08/25/2021 ) Cholecalciferol, Vitamin D3, (VITAMIN D-3) 2,000 unit cap Take 1 tablet by mouth once daily. (Patient not taking: Reported on 08/25/2021 ) ACETAMINOPHEN/PAMABRO M (MIDOL ORAL) Take by mouth as needed. (Patient not taking: Reported on 10/16/2021 ) SUMAtriptan-Naproxen (TREXIMET) 85-500 mg per tablet Take 1 tablet by mouth as needed. [place]-3 Fatty Acids-Vitamin E (FISH OIL) 1,000 mg cap Take 1 capsule by mouth as needed. (Patient not taking: Reported on 08/25/2021 ) FAMILY HISTORY Problem Relation Age of Onset Prostate Cancer Father Diabetes Mother other (heart disease) Mother Diabetes Maternal Grandmother Stroke Maternal Grandmother other (heart disease) Maternal Grandmother other (heart disease) Maternal Grandfather Cancer Maternal Aunt pancreatic cancer Social History Tobacco Use Smoking status: Never Smokeless tobacco: Never Substance Use Topics Alcohol use: No Drug use: No Review of Systems Constitutional: Negative for chills and fever. HENT: Positive for sore throat. Negative for congestion and ear pain. Respiratory: Negative for cough and shortness of breath. Cardiovascular: Negative for chest pain. Gastrointestinal: Positive for nausea. Negative for abdominal pain, diarrhea and vomiting. Genitourinary: Positive for dysuria. Negative for flank pain and hematuria. Objective BP 130/78 Pulse 81 Temp 36.5 ?C (97.7 ?F) (Tympanic) Resp 18 Wt 68 kg (150 lb) LMP (LMP Unknown) SpO2 98% BMI 25.75 kg/m? Physical Exam Vitals and nursing note reviewed. Constitutional: General: She is not in acute distress. Appearance: Normal appearance. She is not toxic-appearing. HENT: Right Ear: Tympanic membrane and ear canal normal. Left Ear: Tympanic membrane and ear canal normal. Nose: Nose normal. Mouth/Throat: Mouth: Mucous membranes are moist. Pharynx: Uvula midline. Posterior oropharyngeal erythema present. No oropharyngeal exudate. Tonsils: No tonsillar exudate. 1+ on the right. 1+ on the left. Eyes: Conjunctiva/sclera: Conjunctivae normal. Cardiovascular: Rate and Rhythm: Normal rate and regular rhythm. Pulmonary: Effort: Pulmonary effort is normal. Breath sounds: Normal breath sounds. A (more content not included)... Normal [facility] STREP A MOLECULAR (POC)on Procedural Control Valid [facility] Strep A (POCT) Negative Negative [facility] UA DIP, URINE (POC)on 2022 BILIRUBIN UA (POCT) Negative Negative [facility] CLARITY UA (POCT) Clear [facility] COLOR UA (POCT) Yellow [facility] GLUCOSE UA (POCT) Negative Negative mg/dL [facility] HEMOGLOBIN/BLOOD UA (POCT) Negative Negative [facility] KETONE UA (POCT) 15 mg/dL Abnormal Negative mg/dL [facility] LEUKOCYTES UA (POCT) Small Abnormal Negative [facility] NITRITE UA (POCT) Negative Negative [facility] PH UA (POCT) 5.0 4.5 - 8.0 [facility] Protein Ql (U) Negative Negative mg/dL [facility] SPECIFIC GRAVITY UA (POCT) >=1.030 1.005 - 1.030 [facility] UROBILINOGEN UA (POCT) 0.2 E.U./dL Rhea l E.U./dL [facility] Absolute lymphocyte countOrd ered By: Dr. Black on 07-10-2022 Lymphocytes Auto (Unsp spec) [#/Vol] 2.65 10*3/uL 0.83-4.51 [facility] Basophil percentageOrdered B y: Dr. Black on 07-10-2022 Basophils/100 WBC (Bld) 0.5 % 0-1 [facility] Bilirubin [Mass/Vol] 0.60 mg/dL 0.20-1.00 [facility] Comment on above: For patients on eltr ombopag therapy, use of [employer] [place] TBIL is not recommended. Chloride [Moles/Vol] 109 mmol/L 98-107 [facility] Eosinophils/100 WBC (Bld) 2.6 % 0-5 [facility] Glucose [Mass/Vol] 93 mg/dL 74-106 [facility] Neutrophils (Bld) [#/Vol] 3.8 10*3/uL 2.0-7.7 [facility] Neutrophils/100 WBC (Bld) 52.2 % 47-70 [facility] Potassium [Moles/Vol] 4.5 mmol/L 3.5-5.1 [facility] Protein [Mass/Vol] 7.5 g/dL 6.4-8.2 [facility] Sodium [Moles/Vol] 143 mmol/L 136-145 [facility] WBC (Bld) [#/Vol] 7.4 10*3/uL 4.4-11.0 [facility] Blood erythrocytes count (nu mber/volume)Ordered By: Dr. Black on 07-10-2022 RBC (Bld) [#/Vol] 4.83 10*6/uL 4.2-5.4 [facility] Blood hemoglobin measurement (mass/volume)Ordered By: Dr. Black on 07-10-2022 Hemoglobin (Bld) [Mass/Vol] 15.7 g/dL 12.0-15.0 [facility] Blood lymphocytes/100 leukoc ytesOrdered By: Dr. Black on 07-10-2022 Lymphocytes/100 WBC (Bld) 36.1 % 19-41 [facility] Blood monocytes/100 leukocyt esOrdered By: Dr. Black on 07-10-2022 Monocytes/100 WBC (Bld) 8.3 % 0-10 [facility] Blood platelet mean volumeOr dered By: Dr. Black on 07-10-2022 Platelet mean volume (Bld) [Entitic vol] 11.4 fL 6.2-12.0 [facility] Determination of erythrocyte mean corpuscular volume (MCV)Ordered By: Dr. Black on 07-10-2022 MCV (RBC) [Entitic vol] 98.1 fL 81-99 [facility] Hematocrit Auto (Bld) [Volum e fraction]Ordered By: Dr. Black on 07-10-2022 Hematocrit (Bld) [Volume fraction] 47.4 % 37-47 [facility] Laboratory - Chemistry and C hemistry - challengeOrdered By: Dr. Black on 07-10-2022 ALP [Catalytic activity/Vol] 79 U/L 45-117 [facility] ALT [Catalytic activity/Vol] 39 U/L 13-56 [facility] CO2 [Moles/Vol] 29.0 mmol/L 21.0-32.0 [facility] Free T4 [Mass/Vol] 1.61 ng/dL 0.76-1.46 [facility] Globulin (S) [Mass/Vol] 3.5 g/dL 2.2-4.2 [facility] Lipase [Catalytic activity/Vol] 188 U/L 73-393 [facility] Urea nitrogen/Creatinine [Mass ratio] 29.5 mg/mg 10-20 [facility] Laboratory - Hematology and Cell countsOrdered By: Dr. Black on 07-10-2022 Erythrocyte distribution width (RBC) [Entitic vol] 46.1 fL 35.1-43.9 [facility] Erythrocyte distribution width (RBC) [Ratio] 12.8 % 11.6-14.6 [facility] Immature granulocytes/100 WBC (Bld) 0.300 % 0.0-0.9 [facility] Comment on above: IG% - Immature Granu locytes (promyelocytes, myelocytes and metamyelocytes) > 1% indicates that a LEFT SHIFT is Present. MCH (RBC) [Entitic mass] 32.5 pg 27.0-32.0 [facility] [facility] Nucle[facility] RBC/100 WBC (Bld) [Ratio] 0 % 0-5 [facility] MCHC Auto (RBC) [Mass/Vol]Or dered By: Dr. Black on 07-10-2022 MCHC (RBC) [Mass/Vol] 33.1 g/dL 32-36 [facility] No Panel InformationOrdered By: Dr. Black on 07-10-2022 Estimated GFR (MDRD) Amer 99 mL/min >60 [facility] Comment on above: GFR Calc Estimated GFR (MDRD) Non-Af Amer 82 mL/min >60 [facility] Comment on above: Non- GFR Calc Free Triiodothyronine (T3) pg/dL 2.7 pg/mL 2.18-3.98 [facility] Thyroid Stimulating Hormone (TSH) 0.18 uIU/mL 0.358-3.74 [facility] Platelets bldOrdered By: Dr. Black on 07-10-2022 Platelets (Bld) [#/Vol] 239 10*3/uL 150-450 [facility] Serum or plasma albumin asia urement (mass/volume)Ordered By: Dr. Black on 07-10-2022 Albumin [Mass/Vol] 4.0 g/dL 3.2-5.0 [facility] Serum or plasma albumin/glob ulin mass ratioOrdered By: Dr. Black on 07-10-2022 Albumin/Globulin [Mass ratio] 1.1 {ratio} 0.9-2.4 [facility] Serum or plasma calcium asia urement (mass/volume)Ordered By: Dr. Black on 07-10-2022 Calcium [Mass/Vol] 9.8 mg/dL 8.5-10.1 [facility] Serum or plasma creatinine m easurement (mass/volume)Ordered By: Dr. Black on 07-10-2022 Creatinine [Mass/Vol] 0.78 mg/dL 0.55-1.02 [facility] Comment on above: The validity of the calculated GFR & GFRAA in patients over 70 years has not been determined. Clinical correlation is essential. Serum or plasma urea nitroge n measurement (mass/volume)Ordered By: Dr. Black on 07-10-2022 Urea nitrogen [Mass/Vol] 23 mg/dL 7-18 [facility] Thin prep Papanicolaou smear with manual screeningOrdered By: Dr. Black on 07-10-2022 Thin prep Papanicolaou smear with manual screening 20 U/L 15-37 [facility] Thin prep Papanicolaou smear with manual screening 5 5-15 [facility] XR Chest PA and Lateralon IMPRESSION: No acute radiographic abnormality. Transportation Clerk: [facility] Transcribe Date/Time: May 16 2022 2:07P Dictated by : RACHEL MUÑOZ MD This examination was interpreted and the report reviewed and electronically signed by: RACHEL MUÑOZ MD on May 16 2022 2:07PM [facility] DIVISION OF RADIOLOGY * * *Final Report* * * DATE OF EXAM: May 16 2022 1:59PM WOX 5291 - XR CHEST 2V FRONTAL/LAT / PROCEDURE REASON: Subacute cough * * * * Physician Interpretation * * * * EXAMINATION: CHEST RADIOGRAPH (2 VIEW FRONTAL & LATERAL) CLINICAL HISTORY: Subacute cough MQ: XC2_6 EXAM DATE/TIME: 05/16/2022 1:59 PM COMPARISON: Chest x-ray on 08/16/2021 RESULT: Lines, tubes, and devices: None. Lungs and pleura: No consolidation. No lung mass. No pleural effusion. No pneumothorax. Cardiomediastinal silhouette: Normal cardiomediastinal silhouette. Bones and soft tissues: Unremarkable. DIVISION OF RADIOLOGY Provider, [facility] - 05/16/2022 * * *Final Report* * * DATE OF EXAM: May 16 2022 1:59PM WOX 5291 - XR CHEST 2V FRONTAL/LAT / PROCEDURE REASON: Subacute cough * * * * Physician Interpretation * * * * EXAMINATION: CHEST RADIOGRAPH (2 VIEW FRONTAL & LATERAL) CLINICAL HISTORY: Subacute cough MQ: XC2_6 EXAM DATE/TIME: 05/16/2022 1:59 PM COMPARISON: Chest x-ray on 08/16/2021 RESULT: Lines, tubes, and devices: None. Lungs and pleura: No consolidation. No lung mass. No pleural effusion. No pneumothorax. Cardiomediastinal silhouette: Normal cardiomediastinal silhouette. Bones and soft tissues: Unremarkable. IMPRESSION IMPRESSION: No acute radiographic abnormality. Transportation Clerk: [facility] Transcribe Date/Time: May 16 2022 2:07P Dictated by : RACHEL MUÑOZ MD This examination was interpreted and the report reviewed and electronically signed by: RACHEL MUÑOZ MD on May 16 2022 2:07PM EST [facility] Radiology Study observation (narrative) [facility] XR Chest PA and LateralOrder ed By: [facility] Provider on 05-16-2022 [facility] XR Chest PA and Lateralon IMPRESSION: No acute radiographic abnormality. Transportation Clerk: [facility] Transcribe Date/Time: Aug 16 2021 1:40P Dictated by : RACHEL MUÑOZ MD This examination was interpreted and the report reviewed and electronically signed by: RACHEL MUÑOZ MD on Aug 16 2021 1:40PM [facility] DIVISION OF RADIOLOGY * * *Final Report* * * DATE OF EXAM: Aug 16 2021 1:36PM WOX 5291 - XR CHEST 2V FRONTAL/LAT / PROCEDURE REASON: Cough * * * * Physician Interpretation * * * * EXAMINATION: CHEST RADIOGRAPH (2 VIEW FRONTAL & LATERAL) CLINICAL HISTORY: Cough MQ: XC2_6 EXAM DATE/TIME: 08/16/2021 1:36 PM COMPARISON: No relevant prior studies available. RESULT: Lines, tubes, and devices: None. Lungs and pleura: No consolidation. No lung mass. No pleural effusion. No pneumothorax. Cardiomediastinal silhouette: Normal cardiomediastinal silhouette. Bones and soft tissues: Unremarkable. DIV[facility]OLOGY [facility]16/[facility] * * *Final Report* * * DATE OF EXAM: Aug 16 2021 1:36PM WOX 5291 - XR CHEST 2V FRONTAL/LAT / PROCEDURE REASON: Cough * * * * Physician Interpretation * * * * EXAMINATION: CHEST RADIOGRAPH (2 VIEW FRONTAL & LATERAL) CLINICAL HISTORY: Cough MQ: XC2_6 EXAM DATE/TIME: 08/16/2021 1:36 PM COMPARISON: No relevant prior studies available. RESULT: Lines, tubes, and devices: None. Lungs and pleura: No consolidation. No lung mass. No pleural effusion. No pneumothorax. Cardiomediastinal silhouette: Normal cardiomediastinal silhouette. Bones and soft tissues: Unremarkable. IMPRESSION IMPRESSION: No acute radiographic abnormality. Transportation Clerk: [facility] Transcribe Date/Time: Aug 16 2021 1:40P Dictated by : RACHEL MUÑOZ MD This examination was interpreted and the report reviewed and electronically signed by: RACHEL MUÑOZ MD on Aug 16 2021 1:40PM EST [facility] Radiology Study observation (narrative) [facility] XR Chest PA and LateralOrder ed By: Warren Provider on 08-16-2021 [facility] LABORATORYOrdered By: Darren Devine on 08-01-2021 Albumin BCP dye [Mass/Vol] 4.0 G/dL Invalid Interpretation Code 3.5 - 5.0 G/dL AO ADM SS Albumin/Globulin [Mass ratio] 1.1 {ratio} Invalid Interpretation Code 1.1 - 2.5 ratio AO ADM SS ALP [Catalytic activity/Vol] 104 U/L Invalid Interpretation Code 40 - 135 U/L AO ADM SS ALT With P-5'-P [Catalytic activity/Vol] 31 U/L Invalid Interpretation Code 14 - 59 U/L AO ADM SS AST With P-5'-P [Catalytic activity/Vol] 20 U/L Invalid Interpretation Code 10 - 40 U/L AO ADM SS Bilirubin [Mass/Vol] 0.4 mg/dL Invalid Interpretation Code 0.2 - 1.0 mg/dL AO ADM SS Calcium [Mass/Vol] 9.9 mg/dL Invalid Interpretation Code 8.4 - 10.2 mg/dL AO ADM SS Chloride [Moles/Vol] 106 mmol/L Invalid Interpretation Code 98 - 107 mmol/L AO ADM SS CO2 [Moles/Vol] 27 mmol/L Invalid Interpretation Code 22 - 29 mmol/L AO ADM SS Creatinine [Mass/Vol] 0.62 mg/dL Invalid Interpretation Code 0.55 - 1.02 mg/dL AO ADM SS Electrolyte Balance 9.0 mEq/L Invalid Interpretation Code AO ADM SS Globulin 3.5 G/dL Invalid Interpretation Code AO ADM SS Glucose [Mass/Vol] 96 mg/dL Invalid Interpretation Code 70 - 105 mg/dL AO ADM SS LDose Valproic Acid: Unknown (08/01/21 11:20 AM) Invalid Interpretation Code AO Chemistry S Potassium [Moles/Vol] 5.4 mmol/L Invalid Interpretation Code 3.5 - 5.1 mmol/L AO ADM SS Protein [Mass/Vol] 7.5 G/dL Invalid Interpretation Code 6.4 - 8.2 G/dL AO ADM SS Sodium [Moles/Vol] 142 mmol/L Invalid Interpretation Code 136 - 145 mmol/L AO ADM SS Urea nitrogen [Mass/Vol] 21 mg/dL Invalid Interpretation Code 7 - 18 mg/dL AO ADM SS Urea nitrogen/Creatinine [Mass ratio] 34 ratio Invalid Interpretation Code 7 - 27 ratio AO ADM SS Valproate [Mass/Vol] 51 ug/mL Invalid Interpretation Code 50 - 100 mcg/mL AO ADM SS LABORATORYOrdered By: Loraine Cruz on 08-01-2021 Basophil, Absolute 0.00 103/mcL Invalid Interpretation Code 0.00 - 0.19 10^3/mcL AO Auto Heme SS Basophils/100 WBC (Bld) 0.7 % Invalid Interpretation Code 0.0 - 2.5 % AO Auto Heme SS Eosinophil, Absolute 0.20 103/mcL Invalid Interpretation Code 0.00 - 0.40 10^3/mcL AO Auto Heme SS Eosinophils/100 WBC (Bld) 4.0 % Invalid Interpretation Code 0.0 - 7.0 % AO Auto Heme SS Erythrocyte distribution width (RBC) [Ratio] 13.7 % Invalid Interpretation Code 11.5 - 14.5 % AO Auto Heme SS Hematocrit (Bld) [Volume fraction] 42.4 % Invalid Interpretation Code 37.0 - 47.0 % AO Auto Heme SS Hemoglobin (Bld) [Mass/Vol] 14.1 G/dL Invalid Interpretation Code 12.0 - 16.0 G/dL AO Auto Heme SS Lymphocyte, Absolute 1.90 103/mcL Invalid Interpretation Code 0.77 - 3.85 10^3/mcL AO Auto Heme SS Lymphocytes/100 WBC (Bld) 33.0 % Invalid Interpretation Code 10.0 - 50.0 % AO Auto Heme SS MCH (RBC) [Entitic mass] 31.6 pg Invalid Interpretation Code 27.0 - 31.2 pg AO Auto Heme SS MCHC (RBC) [Mass/Vol] 33.3 G/dL Invalid Interpretation Code 33.0 - 37.0 G/dL AO Auto Heme SS MCV (RBC) [Entitic vol] 95.1 fL Invalid Interpretation Code 80.0 - 94.0 fL AO Auto Heme SS Monocyte, Absolute 0.50 103/mcL Invalid Interpretation Code 0.15 - 1.00 10^3/mcL AO Auto Heme SS Monocytes/100 WBC (Bld) 9.7 % Invalid Interpretation Code 1.7 - 13.0 % AO Auto Heme SS Neutrophil, Absolute 3.00 103/mcL Invalid Interpretation Code 2.85 - 6.16 10^3/mcL AO Auto Heme SS Neutrophils/100 WBC (Bld) 52.6 % Invalid Interpretation Code 37.0 - 80.0 % AO Auto Heme SS Platelet mean volume (Bld) [Entitic vol] 9.4 fL Invalid Interpretation Code 7.4 - 10.4 fL AO Auto Heme SS Platelets (Bld) [#/Vol] 281 103/mcL Invalid Interpretation Code 130 - 400 10^3/mcL AO Auto Heme SS RBC (Bld) [#/Vol] 4.46 106/mcL Invalid Interpretation Code 4.20 - 5.40 10^6/mcL AO Auto Heme SS WBC (Bld) [#/Vol] 5.60 103/mcL Invalid Interpretation Code 4.60 - 10.80 10^3/mcL AO Auto Heme SS LABORATORYOrdered By: SYSTEM SYSTEM on 08-01-2021 GFR 122 ml/min/1.73sqm Invalid Interpretation Code AO Chemistry S GFR Non- 101 ml/min/1.73sqm Invalid Interpretation Code AO Chemistry S Office Visit: Wound vac solorzano geon 05-28-2017 Documentation of current medications (procedure) Done Invalid Interpretation Code [facility] Work Phone: Fall risk assessment No Invalid Interpretation Code [facility] Work Phone: Tobacco smoking status NHIS Never Invalid Interpretation Code [facility] [email or web address] Work Phone: Tobacco use [facility]PH[facility] Never smoker Invalid Interpretation Code [facility] [email or web address] Work Phone: Office Visit: wound vac solorzano geon 05-26-2017 Documentation of current medications (procedure) Done Invalid Interpretation Code [email or web address] Work Phone: Fall risk assessment No Invalid Interpretation Code [facility] [employer] Work Phone: Tobacco smoking status NHIS Never Invalid Interpretation Code [facility] [email or web address] Work Phone: Tobacco use [facility] Never smoker Invalid Interpretation Code [facility] [email or web address] Work Phone: Office Visit: Wound Vac Solorzano geon 05-21-2017 Documentation of current medications (procedure) Done Invalid Interpretation Code [facility] [employer] Work Phone: Fall risk assessment No Invalid Interpretation Code [facility] [employer] Work Phone: Tobacco smoking status PAIS Never Invalid Interpretation Code [facility] [employer] Work Phone: Tobacco use [facility] Never smoker Invalid Interpretation Code [facility] [email or web address] Work Phone: Lab Report: ,Urineo n 05-16-2017 HCG.beta subunit ( test) Ql (U) Negative Invalid Interpretation Code [facility] [employer] Work Phone: Vital Signs Date Time Vital Sign Value Performing Clinician Facility 05-08-2023 16:14-0400 Body temperature 98.49 [degF] Adilia Rand SAFETY LAMP KEEPER.HEALTH SCIENCE INSTRUCTOR Work Phone: [facility] 05-08-2023 16:14-0400 Body weight 69.67 kg Adilia Rand SAFETY LAMP KEEPER.HEALTH SCIENCE INSTRUCTOR Work Phone: [facility] 05-08-2023 16:14-0400 Diastolic blood pressure 85 mm[Hg] Adilia Rand SAFETY LAMP KEEPER.HEALTH SCIENCE INSTRUCTOR Work Phone: [facility] 05-08-2023 16:14-0400 Heart rate 71 /min Adilia Rand SAFETY LAMP KEEPER.HEALTH SCIENCE INSTRUCTOR Work Phone: [facility] 05-08-2023 16:14-0400 Respiratory rate 20 /min Adilia Rand SAFETY LAMP KEEPER.HEALTH SCIENCE INSTRUCTOR Work Phone: [facility] 05-08-2023 16:14-0400 SaO2% (BldA) [Mass fraction] 97 % Adilia Rand SAFETY LAMP KEEPER.HEALTH SCIENCE INSTRUCTOR Work Phone: [facility] 05-08-2023 16:14-0400 Systolic blood pressure 129 mm[Hg] Adilia Rand SAFETY LAMP KEEPER.HEALTH SCIENCE INSTRUCTOR Work Phone: [facility] 05-02-2023 17:43-0400 Body temperature 97.7 [degF] Miiram Freeman SAFETY LAMP KEEPER.HEALTH SCIENCE INSTRUCTOR Work Phone: [facility] 05-02-2023 17:43-0400 Body weight 68.4 kg Miriam Freeman SAFETY LAMP KEEPER.HEALTH SCIENCE INSTRUCTOR Work Phone: [facility] 05-02-2023 17:43-0400 Diastolic blood pressure 80 mm[Hg] Miriam Freeman SAFETY LAMP KEEPER.HEALTH SCIENCE INSTRUCTOR Work Phone: [facility] 05-02-2023 17:43-0400 Heart rate 70 /min Miriam Freeman SAFETY LAMP KEEPER.HEALTH SCIENCE INSTRUCTOR Work Phone: [facility] 05-02-2023 17:43-0400 Respiratory rate 18 /min Miriam Freeman SAFETY LAMP KEEPER.HEALTH SCIENCE INSTRUCTOR Work Phone: [facility] 05-02-2023 17:43-0400 SaO2% (BldA) [Mass fraction] 99 % Miriam Freeman SAFETY LAMP KEEPER.HEALTH SCIENCE INSTRUCTOR Work Phone: [facility] 05-02-2023 17:43-0400 Systolic blood pressure 118 mm[Hg] Miriam Freeman SAFETY LAMP KEEPER.HEALTH SCIENCE INSTRUCTOR Work Phone: [facility] 02-13-2023 15:00-0400 Body height 160.02 cm [facility] 02-13-2023 15:00-0400 Body mass index (BMI) [Ratio] 0.9 kg/m2 [facility] 02-13-2023 15:00-0400 Body temperature 98.2 [degF] [facility] 02-13-2023 15:00-0400 Body weight 2.35 kg [facility] 02-13-2023 15:00-0400 Diastolic blood pressure 77 mm[Hg] [facility] 02-13-2023 15:00-0400 Heart rate 75 /min [facility] 02-13-2023 15:00-0400 Respiratory rate 14 /min [facility] 02-13-2023 15:00-0400 SaO2% (BldA) [Mass fraction] 98 % [facility] 02-13-2023 15:00-0400 Systolic blood pressure 139 mm[Hg] [facility] 01-14-2023 17:40-0400 Body temperature 98.29 [degF] Kimberly Older SAFETY LAMP KEEPER.HEALTH SCIENCE INSTRUCTOR Work Phone: [facility] 01-14-2023 17:40-0400 Body weight 69.13 kg Kimberly Older SAFETY LAMP KEEPER.HEALTH SCIENCE INSTRUCTOR Work Phone: [facility] 01-14-2023 17:40-0400 Diastolic blood pressure 68 mm[Hg] Kimberly Older SAFETY LAMP KEEPER.HEALTH SCIENCE INSTRUCTOR Work Phone: [facility] 01-14-2023 17:40-0400 Heart rate 79 /min Kimberly Older SAFETY LAMP KEEPER.HEALTH SCIENCE INSTRUCTOR Work Phone: [facility] 01-14-2023 17:40-0400 Respiratory rate 18 /min Kimberly Older SAFETY LAMP KEEPER.HEALTH SCIENCE INSTRUCTOR Work Phone: [facility] 01-14-2023 17:40-0400 SaO2% (BldA) [Mass fraction] 98 % Kimberly Older SAFETY LAMP KEEPER.HEALTH SCIENCE INSTRUCTOR Work Phone: [facility] 01-14-2023 17:40-0400 Systolic blood pressure 122 mm[Hg] Kimberly Older SAFETY LAMP KEEPER.HEALTH SCIENCE INSTRUCTOR Work Phone: [facility] 11-14-2022 11:08-0400 Body temperature 97.7 [degF] Deana CASH Work Phone: [facility] 11-14-2022 11:08-0400 Body weight 68.04 kg Deana CASH Work Phone: [facility] 11-14-2022 11:08-0400 Diastolic blood pressure 78 mm[Hg] Krislyn Aberegg PA Work Phone: [facility] 11-14-2022 11:08-0400 Heart rate 81 /min Krislyn Aberegg PA Work Phone: [facility] 11-14-2022 11:08-0400 Respiratory rate 18 /min Krislyn Aberegg PA Work Phone: [facility] 11-14-2022 11:08-0400 SaO2% (BldA) [Mass fraction] 98 % Krislyn Aberegg PA Work Phone: [facility] 11-14-2022 11:08-0400 Systolic blood pressure 130 mm[Hg] Krislyn Aberegg PA Work Phone: [facility] 05-07-2022 14:35-0400 Body temperature 98.01 [degF] Gely Praisler-Wood SAFETY LAMP KEEPER.HEALTH SCIENCE INSTRUCTOR Work Phone: [facility] 05-07-2022 14:35-0400 Body weight 69.4 kg Gely Praisler-Wood SAFETY LAMP KEEPER.HEALTH SCIENCE INSTRUCTOR Work Phone: [facility] 05-07-2022 14:35-0400 Diastolic blood pressure 82 mm[Hg] Gely Praisler-Wood SAFETY LAMP KEEPER.HEALTH SCIENCE INSTRUCTOR Work Phone: [facility] 05-07-2022 14:35-0400 Heart rate 82 /min Gely Praisler-Wood SAFETY LAMP KEEPER.HEALTH SCIENCE INSTRUCTOR Work Phone: [facility] 05-07-2022 14:35-0400 Respiratory rate 16 /min Gely Praisler-Wood SAFETY LAMP KEEPER.HEALTH SCIENCE INSTRUCTOR Work Phone: [facility] 05-07-2022 14:35-0400 SaO2% (BldA) [Mass fraction] 99 % Gely Praisler-Wood SAFETY LAMP KEEPER.HEALTH SCIENCE INSTRUCTOR Work Phone: [facility] 05-07-2022 14:35-0400 Systolic blood pressure 116 mm[Hg] Gely Praisler-Wood SAFETY LAMP KEEPER.HEALTH SCIENCE INSTRUCTOR Work Phone: [facility] 03-04-2022 23:14-0400 Respiratory rate 16 /min [facility] Work Phone: 03-04-2022 19:20-0400 Body height 162.56 cm [facility] Work Phone: 03-04-2022 19:20-0400 Body mass index (BMI) [Ratio] 26 kg/m2 [facility] Work Phone: 03-04-2022 19:20-0400 Body temperature 97.5 [degF] [facility] Work Phone: 03-04-2022 19:20-0400 Body weight 68.9 kg [facility] Work Phone: 03-04-2022 19:20-0400 Diastolic blood pressure 67 mm[Hg] [facility] Work Phone: 03-04-2022 19:20-0400 Heart rate 92 /min [facility] Work Phone: 03-04-2022 19:20-0400 SaO2% (BldA) [Mass fraction] 99 % [facility] Work Phone: 03-04-2022 19:20-0400 Systolic blood pressure 143 mm[Hg] [facility] Work Phone: 10-16-2021 13:45-0400 Body temperature 98.49 [degF] Jamin Montiel APRN.HEALTH SCIENCE INSTRUCTOR Work Phone: [facility] 10-16-2021 13:45-0400 Body weight 69.4 kg Jamin Montiel APRN.HEALTH SCIENCE INSTRUCTOR Work Phone: [facility] 10-16-2021 13:45-0400 Diastolic blood pressure 80 mm[Hg] Jamin Montiel SAFETY LAMP KEEPER.HEALTH SCIENCE INSTRUCTOR Work Phone: [facility] 10-16-2021 13:45-0400 Heart rate 74 /min Jamin Montiel SAFETY LAMP KEEPER.HEALTH SCIENCE INSTRUCTOR Work Phone: [facility] 10-16-2021 13:45-0400 Respiratory rate 18 /min Jamin Montiel SAFETY LAMP KEEPER.HEALTH SCIENCE INSTRUCTOR Work Phone: [facility] 10-16-2021 13:45-0400 SaO2% (BldA) [Mass fraction] 98 % Jamin Montiel SAFETY LAMP KEEPER.HEALTH SCIENCE INSTRUCTOR Work Phone: [facility] 10-16-2021 13:45-0400 Systolic blood pressure 124 mm[Hg] Jamin Montiel SAFETY LAMP KEEPER.HEALTH SCIENCE INSTRUCTOR Work Phone: [facility] 05-12-2017 12:44-0400 BMI (Body Mass Index) 25.88 kg/m2 [place] Perdomo [facility] Work Phone: 05-12-2017 12:44-0400 Body Temperature 97.6 [degF] [place] Perdomo [facility] [email or web address] Work Phone: 05-12-2017 12:44-0400 BP Diastolic 82 mm[Hg] [place] Perdomo [facility] Work Phone: 05-12-2017 12:44-0400 BP Systolic 139 mm[Hg] [place] Perdomo [facility] Work Phone: 05-12-2017 12:44-0400 Height 162.[address] [facility] Work Phone: 05-12-2017 12:44-0400 Pulse (Heart Rate) 83 /min [place] Perdomo [facility] Work Phone: 05-12-2017 12:44-0400 Respiratory Rate 20 /min [place] Perdomo [facility] [email or web address] Work Phone: 05-12-2017 12:44-0400 Weight 68.[address] [place] [address] [facility] Work Phone: Encounters Encounter Date Encounter Type Care Provider Facility Start: 09-17-2024 Encounter for genera l adult medical examination with abnormal findings [facility] Start: 09-01-2024 End: 09-01-2024 ambulatory Olesyajocelin Kohli Facility:[facility] Start: 06-12-2024 End: 06-13-2024 Emergency department patient visit Warren Mckeon Facility:[facility] Start: 2024 End: 2024 ambulatory FRANSISCA VILLARREAL MD Facility: Start: 07-24-2023 End: 07-24-2023 ambulatory JUSTIN JOHNSON Facility:[facility] Start: 05-28-2023 End: 05-28-2023 ambulatory [facility] Work Phone: Start: 05-28-2023 End: 05-28-2023 Patient encounter procedure [facility] Work Phone: Start: 05-10-2023 Telephone encounter Gely Ocasio APRN.HEALTH SCIENCE INSTRUCTOR Work Phone: [facility] Comment on above: Results Start: 05-08-2023 End: 05-08-2023 ambulatory ADILIA RAND Facility:[facility] Start: 05-08-2023 End: 05-08-2023 Patient encounter procedure Adilia Rand SAFETY LAMP KEEPER.HEALTH SCIENCE INSTRUCTOR Work Phone: [facility] Comment on above: URI, acute (Primary Dx); Dysuria Start: 05-04-2023 ambulatory Rocío Borrero RN [facility] Start: 05-04-2023 Follow-up encounter Rocío Borrero RN NURSE AGRICULTURAL SERVICES DIRECTOR Comment on above: Follow Up Start: 05-02-2023 End: 05-02-2023 ambulatory JUSTIN JOHNSON Facility:[facility] Start: 05-02-2023 End: 05-02-2023 Patient encounter procedure Miriam Millard SAFETY LAMP KEEPER.HEALTH SCIENCE INSTRUCTOR Work Phone: [facility] Comment on above: Burning with urinati on (Primary Dx); Nausea; Migraine with aura, not intractable, without status migrainosus; Sinus pain Start: 02-24-2023 End: 02-24-2023 ambulatory JUSTIN JOHNSON Facility:[facility] Start: 02-13-2023 End: 02-13-2023 Emergency department patient visit [facility] Work Phone: Start: 01-14-2023 End: 01-14-2023 ambulatory [facility] Facility:[facility] Start: 01-14-2023 End: 01-14-2023 Patient encounter procedure Kimberly Bojorquez ELINA.HEALTH SCIENCE INSTRUCTOR Work Phone: [facility] Comment on above: Viral URI (Primary D x) Start: 11-15-2022 Telephone encounter Miriam Millard SAFETY LAMP KEEPER.HEALTH SCIENCE INSTRUCTOR Work Phone: [facility] Comment on above: Results Start: 11-14-2022 End: 11-14-2022 ambulatory [facility] Facility:[facility] Start: 11-14-2022 End: 11-14-2022 Patient encounter procedure Deana Bradley PA Work Phone: [facility] Comment on above: Burning with urinati on (Primary Dx); Sore throat Start: 08-07-2022 End: 08-07-2022 ambulatory [facility] Work Phone: Start: 08-07-2022 End: 08-07-2022 Patient encounter procedure [facility] [place], [facility] Start: 07-10-2022 End: 07-10-2022 ambulatory [facility] Work Phone: Start: 07-10-2022 End: 07-10-2022 Patient encounter procedure [facility], Maritza Billy [facility] Start: 05-16-2022 End: 05-16-2022 Subsequent hospital visit by physician Xr [facility] Work Phone: Radiology Comment on above: Subacute cough [R05. 2] Start: 05-07-2022 End: 05-07-2022 Patient encounter procedure Gely Cuadra APRN.HEALTH SCIENCE INSTRUCTOR Work Phone: [facility] Comment on above: Sinobronchitis (Prim levy Dx) Start: 04-30-2022 Telephone encounter Sharmaine lozano PA-C Work Phone: [facility] Comment on above: Results Start: 03-04-2022 End: 03-04-2022 Emergency department patient visit [facility]Emergency Department Start: 10-16-2021 End: 10-16-2021 Patient encounter procedure Jamin Montiel APRN.HEALTH SCIENCE INSTRUCTOR Work Phone: [facility] Comment on above: Otalgia, left (Prima ry Dx) Start: 08-16-2021 End: 08-16-2021 Subsequent hospital visit by physician Xr [facility] Work Phone: Radiology Comment on above: Cough [R05.9] Start: 08-01-2021 End: 08-01-2021 Patient encounter procedure FRANSISCA VILLARREAL MD [facility] Start: 03-26-2021 End: 03-26-2021 [facility] Procedures Date Procedure Procedure Detail Performing Clinician Start: 05-28-2023 Plain chest X-ray Start: 05-08-2023 Urnls dip stick/tabl et rgnt auto w/o microscopy Adilia Rand APRN.HEALTH SCIENCE INSTRUCTOR Work Phone: Start: 05-02-2023 Urnls dip stick/tabl et rgnt auto w/o microscopy Shira Hubbard APRN.HEALTH SCIENCE INSTRUCTOR Work Phone: Start: 11-14-2022 STREP A MOLECULAR (POC) Deana CASH Work Phone: Start: 11-14-2022 Urnls dip stick/tabl et rgnt auto w/o microscopy Shira Hubbard APRN.HEALTH SCIENCE INSTRUCTOR Work Phone: Start: 08-07-2022 CT of abdomen and pe lvis with oral contrast Start: 05-16-2022 Radiologic exam ches t 2 views Adilia Rand APRN.HEALTH SCIENCE INSTRUCTOR Work Phone: Start: 08-16-2021 Radiologic exam ches t 2 views Adilia Rand SAFETY LAMP KEEPER.HEALTH SCIENCE INSTRUCTOR Work Phone: Start: 05-28-2017 End: 05-28-2017 Negative pressure wound therapy dme = 50 sq cm Kelsey Rivera PA-C Work Phone: Start: 05-26-2017 End: 05-27-2017 Negative pressure wound therapy dme = 50 sq cm Kelsey Rivera PA-C Work Phone: Start: 05-21-2017 End: 05-21-2017 Negative pressure wound therapy dme = 50 sq cm Kelsey Rivera PA-C Work Phone: Start: 05-19-2017 End: 05-19-2017 Negative pressure wound therapy dme = 50 sq cm Kelsey Rivera PA-C Work Phone: Plan of Treatment Date Care Activity Detail Author Start: 02-06-2030 Urine microalbumin profile DTaP,Tdap,Td Vaccine (2 - Td or Tdap) [facility] Start: 03-28-2024 Covid-19 Vaccine () Covid-19 Vaccine () [facility] Start: 03-28-2024 Influenza vaccination Influenza Vacc ine (#1) [facility] Start: 05-08-2023 End: 07-08-2023 Bacteria identified in Urine by Culture [facility] Work Phone: Comment on above: Expected: 05/08/2023 , Expires: 07/08/2023 Start: 05-08-2023 End: 05-22-2023 COVID & INFLUENZA A/B & RSV NAAT, ROUTINE [facility] Work Phone: Comment on above: Expected: 05/08/2023 , Expires: 05/22/2023 Start: 03-28-2023 Covid-19 Vaccine ( season) Covid-19 Vaccine () [facility] Start: 03-28-2023 Influenza vaccination C [facility] Start: 07-28-2022 DEPRESSION ASSESSMENT DEPRESSION ASS ESSMENT [facility] Start: 03-28-2022 Influenza vaccination INFLUENZA (#1) [facility] Start: 09-07-2021 COVID-19 VACCINE (4 - Booster for Moderna series) COVID-19 VACCINE (4 - Booster for Moderna series) [facility] Start: 09-07-2021 Covid-19 Vaccine (4 - Moderna series) Covid-19 Vaccine (4 - Moderna series) [facility] Start: 07-28-2021 DEPRESSION ASSESSMENT DEPRESSION ASS ESSMENT [facility] Start: 2018 SHINGRIX VACCINE (1 of 2) SHINGRIX VACCINE (1 of 2) [facility] Start: 05-30-2017 End: 05-30-[address] [facility] Work Phone: Start: 05-28-2017 End: 05-28-[address] [facility] Work Phone: Start: 05-26-2017 End: 05-26-[address] [facility] Work Phone: Start: 05-23-2017 End: 05-23-[address] [facility] Work Phone: Start: 2013 COLOGUARD (FIT-DNA) COLOGUARD (FIT-D NA) [facility] Start: 2013 Colonoscopy COLONOSCOPY [facility] Start: 2013 COLORECTAL CANCER SCREENING COLORECTAL CANCER SCREENING [facility] Start: [address] COLONOGRAPHY [facility] Start: 2013 DIABETES SCREEN DIABETES SCREEN [facility] Start: 2013 Diabetes Screening Diabetes Screenin g [facility] Start: 2013 FECAL OCCULT BLOOD FECAL OCCULT BLOO D [facility] Start: 2013 Lipid 1996 panel - S jhoan or Plasma Lipid Screening [facility] Start: 2013 Lipid panel Lipid Screening [facility] Start: 2013 LIPID SCREEN LIPID SCREEN [facility] Start: 2013 Screening for malign ant neoplasm of colon [facility] Start: [address] [facility] Start: 2008 Mammography [facility] Start: 2008 Screening for malign ant neoplasm of breast Mammogram Screening [facility] Start: 1998 HPV TESTING HPV TESTING [facility] Start: 1989 PAP TESTING PAP TESTING [facility] Start: 1989 Screening for malign ant neoplasm of cervix Cervical Cancer Screening [facility] Start: 1987 Hepatitis B Vaccine (1 of 3 - 19+ 3-dose series) Hepatitis B Vaccine (1 of 3 - 19+ 3-dose series) [facility] Start: 1987 Urine microalbumin profile [facility] Start: 1986 Anxiety Screening Anxiety Screening [facility] Start: 1986 Depression Screening Depression Scre sharondabrad [facility] Start: 1986 HEPATITIS C SCREENING HEPATITIS C [facility] Start: 1986 Hepatitis C screening Hepatitis C [facility] Start: 1986 HIV SCREENING HIV SCREENING [facility] Start: 1986 HIV screening HIV Screening [facility] Start: 1980 Adult depression screening assessment DEPRESSION SCREENING [facility] Start: 1968 HEPATITIS B (1 of 3 - 3-dose series) HEPATITIS B (1 of 3 - 3-dose series) [facility] Start: 1968 Hepatitis B Vaccine (1 of 3 - 3-dose series) Hepatitis B Vaccine (1 of 3 - 3-dose series) [facility] Bacteria identified in Urine by Culture URINE CULTURE Microbiology Routine Burning with urination 11/14/2022 11:45 AM EDT [facility] Work Phone: Bacteria identified in Urine by Culture URINE CULTURE Microbiology Routine Burning with urination 05/02/2023 6:41 PM EDT [facility] Work Phone: Patient Education ED, Migraine (Classical) [facility] Work Phone: Patient referral [facility] Work Phone: ROUTINE FLU A/B + RSV ROUTINE FL U A/B + RSV Lab Routine URI, acute 05/08/2023 5:49 PM EDT [facility] Work Phone: SARS-CoV-2 (COVID-19 ) RNA [Presence] in Respiratory specimen by RAJEEV with probe detection COVID NAAT, UPPER RESPIRATORY, ROUTINE Microbiology Routine URI, acute 05/08/2023 5:49 PM EDT [facility] Work Phone: UA DIP B/O UA DIP B/O Lab R outine Dysuria Ordered: 05/08/2023 [facility] Work Phone: Comment on above: [facility]: [facility] Immunization Date Immunization Notes Care Provider Valentina beatrizhema 04-17-2021 influenza virus vacc ine, unspecified formulation Miriam Millard APRN.CNP Work Phone: [facility] Payers Date Payer Category Payer Self-pay [id number] 2021 Unknown [employer] PPO [id number] 2021-Present [phone] [address] [place] [address] PPO [id number] 2021 Unknown [id number] 2017 Unknown [id number] 2015 Unknown [employer] PPO OOS [id number] 2015-Present [phone] [id number] [place] [address] PPO [id number] 2015 Unknown [id number] 1968 Unknown [id number] 1968 Unknown [id number] [facility] PACKAGE PLAN [phone] [id number] Unknown [id number] Unknown [id number] Social History Date Type Detail Facility [facility] Start: 1970 Sex Assigned At Female A [facility] Start: 02-01-2016 Tobacco smoking stat NHIS Never smoked tobacco [facility] Start: 02-01-2016 Tobacco use and exposure Smokeless tobacco non-user [facility] Start: 08-16-2021 End: 10-16-2021 Alcohol intake Current non-drinker of alcohol (finding) [facility] Start: 1970 Sex Assigned At Not on file [facility] Start: 07-17-2021 End: 05-07-2022 Exposure to SARS-CoV-2 (event) Not sure [facility] Start: 03-04-2022 End: 02-13-2023 Tobacco smoking status NHIS Unknown if ever smoked [facility] Start: 07-05-2020 End: 05-02-2023 History of Social function [facility] Start: 07-05-2020 End: 05-02-2023 Tobacco use panel [facility] National Score (1-100), lower number is lower risk Not on file [facility] Mental Status Date Assessment Result Facility 02-13-2023 Cognitive function Level Of Cons ciousness Awake;Alert;Appropriate;Follow s Commands [facility] Work Phone: 03-04-2022 Cognitive function Level Of Cons ciousness Awake;Alert;Appropriate;Follow s Commands [facility] Work Phone: Clinical Notes 10-16-2021 to 07-24-2023 Telephone Encounter - Jose Kirby MA - 05/10/2023 9:24 AM EDTTelephone Encounter - Jose Kirby MA - 05/10/2023 9:23 AM Adilia Murillo APRN.[facility] - 05/08/2023 4:15 PM EDT Note Date & Type Note Facility 07-24-2023 Note HNO ID: [id number] Author: John Back MD Service: ? Author Type: Physician Type: Progress Notes Filed: 07/24/2023 2:50 PM Note Text: Patient presents with: Sore Throat: ST, ISAACS, nausea, dizzy and bodyaches-exposed to COVID-woke up with symptoms HPI: Feeling sick today. Her sister she lives with has COVID illness. Positive symptoms: Sore throat, Body Aches, Malaise, Fatigue, Headache, Nausea, Cough, Nasal Congestion, Rhinorrhea, Negative symptoms: Shortness of breath, Wheezing, Diarrhea, OTC: none Has not performed COVID test this illness. PAST MEDICAL HISTORY Diagnosis Date Hypothyroidism Migraines Psoriasis Psoriatic arthritis (HCC) Sciatica Sjogren's syndrome (HCC) MEDICATIONS: Current Outpatient Medications Medication Sig ondansetron orally disintegrating (ZOFRAN ODT) 4 mg disintegrating tablet Take 1 tablet by mouth every 8 hours. divalproex ER (DEPAKOTE ER) 500 mg 24 hr tablet Take 500 mg by mouth twice daily. levothyroxine (SYNTHROID) 100 mcg tablet Take 100 mcg by mouth every morning. Take on an empty stomach. albuterol HFA (PROVENTIL HFA, VENTOLIN HFA) 90 mcg/actuation inhaler Inhale 2 Puffs as instructed every 6 hours as needed for wheezing/shortness of breath. RESTASIS 0.05 % ophthalmic emulsion fluorometholone (FML LIQUID FILM) 0.1 % ophthalmic suspension divalproex DR (DEPAKOTE) 500 mg EC tablet Take 500 mg by mouth once daily. SUMAtriptan-Naproxen 85-500 mg per tablet Take 1 tablet by mouth as needed. propranolol ER (INDERAL LA) 160 mg Cs24 Take 160 mg by mouth once daily. No current facility-administered medications for this visit. ALLERGIES: ALLERGIES No Known Allergies VITALS: BP 110/78 Pulse 68 Temp 36.4 ?C (97.6 ?F) (Tympanic) Resp 18 Wt 69.9 kg (154 lb) LMP (LMP Unknown) SpO2 98% BMI 26.43 kg/m? PHYSICAL EXAM: GEN: mildly ill appearing HEENT: PERRL, EOMI, conjunctiva clear Ears: canals clear. TMs without erythema, bulge, or effusion Sinuses: non-tender frontal sinus, non-tender maxillary sinuses Neck: supple, no thyromegaly, no lymphadenopathy HEART: regular rate and rhythm, no murmurs LUNGS: clear to auscultation, no wheezes or crackles, no increased WOB ASSESSMENT/PLAN: 1. Influenza-like illness - ICD9: 487.1, ICD10: J11.1 (primary diagnosis) 2. Exposure to COVID-19 virus - ICD9: V01.79, ICD10: Z20.822 - probable COVID-19. - Discussed supportive care treatment with home isolation, rest, cold medicine, and analgesia. - Red flags to seek further treatment include chest pain, shortness of breath, and lethargy; in the ER if severe. - COVID AND INFLUENZA A/B NAAT, ROUTINE -plan to send Paxlovid prescription to [facility] if she test positive. No drug interactions with Paxlovid. She had a normal GFR July 2021 and reports normal lab work with her PCP this fall. John Back MD [facility] 05-10-2023 Miscellaneous Notes Left VM instructing patient to return call to receive results. Jose Kirby MA ----- Message from Gely Cuadra APRN.LILLIAN sent at 05/10/2023 8:06 AM EDT ----- Urine culture did not show clear evidence of infection, however it appears sample may have been contaminated with skin bacteria during collection. If not improving, recommend follow up with PCP. Gely Cuadra CNP documented in this encounter [facility] 05-08-2023 Note HNO ID: [id number] Author: Adilia Rand APRN.LILLIAN Service: ? Author Type: Nurse Practitioner Type: Progress Notes Filed: 05/08/2023 5:43 PM Note Text: This note was created using Lalalamariter. Subjective Nataly Nassar is a 53 year old female. 53 year old female with PMH Sjogrens, thyroid, and migraines presents with illness. UTI Acute onset one week ago . +burning sensation Denies that she is sexually active. Denies vaginal discharge Denies vaginal discharge. She was seen here 05/02/23 05/04/23 urine culture negative She called in to our nurse triage line on 05/04/23 for continued symptoms. She did not follow up with PCP. Flu Sx Acute onset this morning. Woke up feeling crappy + chills + cough + nausea +post nasal drainage +fatigue Feelings of lightheaded Decreased PO intake The history is provided by the patient. No language teacher was used. UTI This is a recurrent problem. The current episode started more than 1 week ago. The problem occurs every urination. The problem has not changed since onset.The quality of the pain is described as burning. The pain is at a severity of 5/10. The pain is moderate. There has been no fever. She is Not sexually active. There is No history of pyelonephritis. Associated symptoms include nausea. Pertinent negatives include no chills, no sweats, no vomiting, no discharge, no frequency, no hematuria, no hesitancy, no possible , no urgency and no flank pain. She has tried nothing for the symptoms. Her past medical history does not include kidney stones, single kidney, urological procedure, recurrent UTIs, urinary stasis or catheterization. Flu Like Symptoms This is a new problem. The current episode started today. The problem occurs constantly. The problem has been unchanged. Associated symptoms include congestion, coughing, fatigue, headaches, myalgias, nausea and a sore throat. Pertinent negatives include no abdominal pain, anorexia, arthralgias, change in bowel habit, chest pain, chills, diaphoresis, fever, joint swelling, neck pain, numbness, rash, swollen glands, urinary symptoms, vertigo, visual change, vomiting or weakness. Nothing aggravates the symptoms. She has tried nothing for the symptoms. The treatment provided no relief. PAST MEDICAL HISTORY Diagnosis Date Hypothyroidism Migraines Psoriasis Psoriatic arthritis (HCC) Sciatica Sjogren's syndrome (HCC) PAST SURGICAL HISTORY Procedure Laterality Date COLONOSCOPY Unsure of specific date DEBRIDEMENT SUBCUTANEOUS TISSUE 20 SQ CM/< Left 02-02-16 PAST SURGICAL HISTORY OF mole removal US BREAST NEEDLE CORE BIOPSY LT Left 01/2016 ALLERGIES Patient has no known allergies. MEDICATIONS ACETAMINOPHEN/PAMABROM (MIDOL ORAL) Take by mouth as needed. (Patient not taking: Reported on 10/16/2021 ) albuterol HFA (PROVENTIL HFA, VENTOLIN HFA) 90 mcg/actuation inhaler Inhale 2 Puffs as instructed every 6 hours as needed for wheezing/shortness of breath. benzonatate (TESSALON PERLE) 100 mg capsule Take 2 capsules by mouth three times daily as needed. (Patient not taking: Reported on 10/16/2021 ) benzonatate (TESSALON PERLES) 100 mg capsule Take 1-2 capsules by mouth three times daily as needed. (Patient not taking: Reported on 05/07/2022) benzonatate (TESSALON PERLES) 100 mg capsule Take 1 capsule by mouth three times a day as needed for cough. Cholecalciferol, Vitamin D3, (VITAMIN D-3) 2,000 unit cap Take 1 tablet by mouth once daily. (Patient not taking: Reported on 08/25/2021 ) divalproex DR (DEPAKOTE) 500 mg EC tablet Take 500 mg by mouth once daily. divalproex ER (DEPAKOTE ER) 500 mg 24 hr tablet Take 500 mg by mouth twice daily. ferrous sulfate 325 mg (65 mg iron) tablet Take 325 mg by mouth daily with breakfast. (Patient not taking: Reported on 08/25/2021 ) fluconazole (DIFLUCAN) 150 mg tablet Take 1 tablet by mouth once daily for 1 day. fluorometholone (FML LIQUID FILM) 0.1 % ophthalmic suspension levothyroxine (SYNTHROID) 100 mcg tablet Take 100 mcg by mouth every morning. Take on an empty stomach. levothyroxine (SYNTHROID) 50 mcg tablet Take 112 mcg by mouth daily before breakfast. LORATADINE (CLARITIN ORAL) Take by mouth once daily. (Patient not taking: Reported on 08/25/2021 ) mometasone (NASONEX) 50 mcg/actuation nasal spray Use 2 Sprays in the nose once daily. [place]-3 Fatty Acids-Vitamin E (FISH OIL) 1,000 mg cap Take 1 capsule by mouth as needed. (Patient not taking: Reported on 08/25/2021 ) omeprazole (PRILOSEC) 20 mg capsule Take 20 mg by mouth once daily. ondansetron orally disintegrating (ZOFRAN ODT) 4 mg disintegrating tablet Take 1 tablet by mouth every 8 hours. propranolol ER (INDERAL LA) 160 mg Cs24 Take 160 mg by mouth once daily. RESTASIS 0.05 % ophthalmic emulsion SUMAtriptan-Naproxen (TREXIMET) 85-500 mg per tablet Take 1 tablet by mouth as needed. SUMAtriptan-Naproxen 85-5 (more content not included)... [facility] 05-08-2023 History of Presen t illness Narrative This note was created using Lalalamariter. Subjective Nataly Nassar is a 53 year old female. 53 year old female with PMH Sjogrens, thyroid, and migraines presents with illness. UTI Acute onset one week ago . +burning sensation Denies that she is sexually active. Denies vaginal discharge Denies vaginal discharge. She was seen here 05/02/23 05/04/23 urine culture negative She called in to our nurse triage line on 05/04/23 for continued symptoms. She did not follow up with PCP. Flu Sx Acute onset this morning. Woke up feeling crappy + chills + cough + nausea +post nasal drainage +fatigue Feelings of lightheaded Decreased PO intake The history is provided by the patient. No language teacher was used. UTI This is a recurrent problem. The current episode started more than 1 week ago. The problem occurs every urination. The problem has not changed since onset.The quality of the pain is described as burning. The pain is at a severity of 5/10. The pain is moderate. There has been no fever. She is Not sexually active. There is No history of pyelonephritis. Associated symptoms include nausea. Pertinent negatives include no chills, no sweats, no vomiting, no discharge, no frequency, no hematuria, no hesitancy, no possible , no urgency and no flank pain. She has tried nothing for the symptoms. Her past medical history does not include kidney stones, single kidney, urological procedure, recurrent UTIs, urinary stasis or catheterization. Flu Like Symptoms This is a new problem. The current episode started today. The problem occurs constantly. The problem has been unchanged. Associated symptoms include congestion, coughing, fatigue, headaches, myalgias, nausea and a sore throat. Pertinent negatives include no abdominal pain, anorexia, arthralgias, change in bowel habit, chest pain, chills, diaphoresis, fever, joint swelling, neck pain, numbness, rash, swollen glands, urinary symptoms, vertigo, visual change, vomiting or weakness. Nothing aggravates the symptoms. She has tried nothing for the symptoms. The treatment provided no relief. PAST MEDICAL HISTORY Diagnosis Date Hypothyroidism Migraines Psoriasis Psoriatic arthritis (HCC) Sciatica Sjogren's syndrome (HCC) PAST SURGICAL HISTORY Procedure Laterality Date COLONOSCOPY Unsure of specific date DEBRIDEMENT SUBCUTANEOUS TISSUE 20 SQ CM/< Left 7-8-16 PAST SURGICAL HISTORY OF mole removal US BREAST NEEDLE CORE BIOPSY LT Left 01/2016 ALLERGIES Patient has no known allergies. MEDICATIONS ACETAMINOPHEN/PAMABROM (MIDOL ORAL) Take by mouth as needed. (Patient not taking: Reported on 10/16/2021 ) albuterol HFA (PROVENTIL HFA, VENTOLIN HFA) 90 mcg/actuation inhaler Inhale 2 Puffs as instructed every 6 hours as needed for wheezing/shortness of breath. benzonatate (TESSALON PERLE) 100 mg capsule Take 2 capsules by mouth three times daily as needed. (Patient not taking: Reported on 10/16/2021 ) benzonatate (TESSALON PERLES) 100 mg capsule Take 1-2 capsules by mouth three times daily as needed. (Patient not taking: Reported on 05/07/2022) benzonatate (TESSALON PERLES) 100 mg capsule Take 1 capsule by mouth three times a day as needed for cough. Cholecalciferol, Vitamin D3, (VITAMIN D-3) 2,000 unit cap Take 1 tablet by mouth once daily. (Patient not taking: Reported on 08/25/2021 ) divalproex DR (DEPAKOTE) 500 mg EC tablet Take 500 mg by mouth once daily. divalproex ER (DEPAKOTE ER) 500 mg 24 hr tablet Take 500 mg by mouth twice daily. ferrous sulfate 325 mg (65 mg iron) tablet Take 325 mg by mouth daily with breakfast. (Patient not taking: Reported on 08/25/2021 ) fluconazole (DIFLUCAN) 150 mg tablet Take 1 tablet by mouth once daily for 1 day. fluorometholone (FML LIQUID FILM) 0.1 % ophthalmic suspension levothyroxine (SYNTHROID) 100 mcg tablet Take 100 mcg by mouth every morning. Take on an empty stomach. levothyroxine (SYNTHROID) 50 mcg tablet Take 112 mcg by mouth daily before breakfast. LORATADINE (CLARITIN ORAL) Take by mouth once daily. (Patient not taking: Reported on 08/25/2021 ) mometasone (NASONEX) 50 mcg/actuation nasal spray Use 2 Sprays in the nose once daily. Brunswick-3 Fatty Acids-Vitamin E (FISH OIL) 1,000 mg cap Take 1 capsule by mouth as needed. (Patient not taking: Reported on 08/25/2021 ) omeprazole (PRILOSEC) 20 mg capsule Take 20 mg by mouth once daily. ondansetron orally disintegrating (ZOFRAN ODT) 4 mg disintegrating tablet Take 1 tablet by mouth every 8 hours. propranolol ER (INDERAL LA) 160 mg Cs24 Take 160 mg by mouth once daily. RESTASIS 0.05 % ophthalmic emulsion SUMAtriptan-Naproxen (TREXIMET) 85-500 mg per tablet Take 1 tablet by mouth as needed. SUMAtriptan-Naproxen 85-500 mg per tablet Take 1 tablet by mouth as needed. FAMILY HISTORY Problem Relation Age of Onset Prostate Cancer Father Diabetes Mother other (heart disease) Mother Diabetes Maternal Grandmother Stroke Maternal Grandmother other (heart disease) Maternal Grandmother other (heart disease) Maternal Grandfather Cancer Maternal Aunt pancreatic cancer Social History Tobacco Use Smoking status: Never Smokeless tobacco: Never Substance Use Topics Alcohol use: No Drug use: No Review of Systems Constitutional: Positive for fatigue. Negative for chills, diaphoresis and fever. HENT: Positive for congestion, ear pain, postnasal drip and sore throat. Eyes: Negative for photophobia, pain, discharge, redness and itching. Respiratory: Positive for cough. Negative for apnea, choking and chest tightness. Cardiovascular: Negative for chest pain. Gastrointestinal: Positive for nausea. Negative for abdominal pain, anorexia, change in bowel habit and vomiting. Genitourinary: Positive for dysuria. Negative for flank pain, frequency, hematuria, hesitancy and urgency. Musculoskeletal: Positive for myalgias. Negative for arthralgias, joint swelling and neck pain. Skin: Negative for color change, pallor and rash. Allergic/Immunologic: Negative for environmental allergies, food allergies and immunocompromised state. Neurological: Positive for headaches. Negative for vertigo, weakness and numbness. Hematological: Negative for adenopathy. Does not bruise/bleed easily. Psychiatric/Behavioral: Negative for agitation and behavioral problems. Objective BP 129/85 Pulse 71 Temp 36.9 C (98.5 F) Resp 20 Wt 69.7 kg (153 lb 9.6 oz) LMP (LMP Unknown) SpO2 97% BMI 26.37 kg/m Physical Exam Vitals and nursing note reviewed. Constitutional: General: She is not in acute distress. Appearance: Normal appearance. She is normal weight. She is not ill-appearing, toxic-appearing or diaphoretic. HENT: Head: Normocephalic and atraumatic. Right Ear: Ear canal and external ear normal. Left Ear: Ear canal and external ear normal. Nose: Nose normal. No congestion or rhinorrhea. Mouth/Throat: Mouth: Mucous membranes are moist. Pharynx: No oropharyngeal exudate or posterior oropharyngeal erythema. Eyes: General: Right eye: No discharge. Left eye: No discharge. Extraocular Movements: Extraocular movements intact. Conjunctiva/sclera: Conjunctivae normal. Pupils: Pupils are equal, round, and reactive to light. Cardiovascular: Rate and Rhythm: Normal rate and regular rhythm. Pulses: Normal pulses. Heart sounds: Normal heart sounds. No murmur heard. No friction rub. Pulmonary: Effort: Pulmonary effort is normal. No respiratory distress. Breath sounds: Normal breath sounds. No stridor. No wheezing, rhonchi or rales. Chest: Chest wall: No tenderness. Abdominal: General: Abdomen is flat. There is no distension. Palpations: Abdomen is soft. There is no mass. Tenderness: There is no abdominal tenderness. There is no right CVA tenderness, left CVA tenderness, guarding or rebound. Hernia: No hernia is present. Musculoskeletal: General: No swelling, tenderness, deformity or signs of injury. Normal range of motion. Cervical back: Normal range of motion and neck supple. No rigidity. Right lower leg: No edema. Left lower leg: No edema. Lymphadenopathy: Cervical: No cervical adenopathy. Skin: General: Skin is warm and dry. Coloration: Skin is not jaundiced or pale. Findings: No bruising, erythema, lesion or rash. Neurological: General: No focal deficit present. Mental Status: She is alert and oriented to person, place, and time. Cranial Nerves: No cranial nerve deficit. Sensory: No sensory deficit. Motor: No weakness. Coordination: Coordination normal. Gait: Gait normal. Psychiatric: Mood and Affect: Mood normal. Behavior: Behavior normal. Thought Content: Thought content normal. Judgment: Judgment normal. Assessment and Plan ASSESSMENT/PLAN: 1. URI, acute - ICD9: 465.9, ICD10: J06.9 (primary diagnosis) Acute onset today + ill contact - Discussed viral etiology and rationale for treatment. - Symptomatic treatment with prn analgesia - Supportive care with fluids and rest - The patient may also use OTC cough and cold meds as needed, warm salt water gargles, throat lozenges and/or OTC throat spray as needed, and nasal saline gtts and suction prn. - Follow up in 3-5 days if symptoms persist or sooner if worsening of symptoms - COVID & INFLUENZA A/B & RSV NAAT, ROUTINE-obtained and pending Work note provided 2. Dysuria - ICD9: 788.1, ICD10: R30.0 Acute onset one week ago . +burning sensation Denies that she is sexually active. Denies vaginal discharge Denies vaginal discharge. She was seen here 05/02/23 05/04/23 urine culture negative She called in to our nurse triage line on 05/04/23 for continued symptoms. She did not follow up with PCP. ?? Etiology related to yeast and or OAB Declines pelvic Will treat with Diflucan x 1 Urine culture sent Instructed patient to follow up with PCP if symptoms continue. Adilia Rand APRN.LILLIAN documented in this encounter [facility] 05-04-2023 Miscellaneous Notes Patient returning call from [facility] for urine culture results. Provided the following results from Adilia Rand CNP in the telephone encounter dated 05/04/2023: Please inform patient that her urine culture revealed mixed bacteria, this can occur with a contaminated specimen at time of collection. IF she is continuing to have symptoms she needs to follow up with her PCP. Please advise Patient states that she is continuing to have burning with urination. Has not worsened, but has persisted. Pt states that she's not drinking a lot of water due to migraines. Advised patient to follow up with her PCP at soonest available. PCP is a non [facility] provider. Patient states that she will call Dr. Johnson's office tomorrow morning. Patient denies any new or worsening symptoms of which a provider is not aware: Yes. GO TO THE EMERGENCY ROOM OR CALL 911 IF: * You develop any new symptoms * Your condition worsens * You are concerned or anxious about your condition for any other reason. If you have any questions, you can call Nurse director of special education back. documented in this encounter [facility] 05-02-2023 Note HNO ID: [id number] Author: Miriam Millard APRN.HEALTH SCIENCE INSTRUCTOR Service: ? Author Type: Nurse Practitioner Type: Progress Notes Filed: 05/02/2023 6:35 PM Note Text: Subjective The history is provided by the patient. No language teacher was used. LAZARO Nassar is a 53 year old female who presents today for CC of frequency of urination for 3 days, headache and nausea from migraine. She is also having right sided sinus pressure that started yesterday, clear drainage. She denies any fever, chills body aches. She has used Imitrex and naproxen, zofran which has helped migraine, slightly improving. She denies any vaginal discharge, itching or odor. BP 118/80 Pulse 70 Temp 36.5 ?C (97.7 ?F) Resp 18 Wt 68.4 kg (150 lb 12.8 oz) LMP (LMP Unknown) SpO2 99% BMI 25.88 kg/m? Social History Tobacco Use Smoking status: Never Smokeless tobacco: Never Substance Use Topics Alcohol use: No Drug use: No PAST MEDICAL HISTORY Diagnosis Date Hypothyroidism Migraines Psoriasis Psoriatic arthritis (HCC) Sciatica Sjogren's syndrome (HCC) I have confirmed and edited as necessary, the [facility] Review of Systems Constitutional: Negative for chills and fever. HENT: Positive for sinus pain. Negative for congestion, ear pain and sore throat. Respiratory: Negative for cough, sputum production, shortness of breath and wheezing. Cardiovascular: Negative for chest pain. Gastrointestinal: Negative for abdominal pain. Genitourinary: Positive for frequency. Negative for dysuria, flank pain, hematuria and urgency. Musculoskeletal: Negative for myalgias. Neurological: Positive for headaches. Objective Physical Exam Vitals and nursing note reviewed. Constitutional: Appearance: Normal appearance. HENT: Head: Normocephalic and atraumatic. Right Ear: Tympanic membrane, ear canal and external ear normal. Left Ear: Tympanic membrane, ear canal and external ear normal. Nose: No mucosal edema, congestion or rhinorrhea. Right Sinus: No maxillary sinus tenderness or frontal sinus tenderness. Left Sinus: No maxillary sinus tenderness or frontal sinus tenderness. Mouth/Throat: Pharynx: Uvula midline. No oropharyngeal exudate or posterior oropharyngeal erythema. Cardiovascular: Rate and Rhythm: Normal rate and regular rhythm. Heart sounds: Normal heart sounds. Pulmonary: Effort: Pulmonary effort is normal. Breath sounds: Normal breath sounds. Abdominal: General: Bowel sounds are normal. There is no abdominal bruit. Palpations: Abdomen is not rigid. There is no mass or pulsatile mass. Tenderness: There is no abdominal tenderness. There is no guarding or rebound. Negative signs include Mary's sign and McBurney's sign. Lymphadenopathy: Head: Right side of head: No submental, submandibular or tonsillar adenopathy. Left side of head: No submental, submandibular or tonsillar adenopathy. Cervical: No cervical adenopathy. Skin: General: Skin is warm and dry. Neurological: Mental Status: She is alert and oriented to person, place, and time. Psychiatric: Mood and Affect: Affect normal. ASSESSMENT/PLAN: 1. Burning with urination - ICD9: 788.1, ICD10: R30.0 (primary diagnosis) acute - UA positive for ketones, elevated specific gravity - appears to be decreased fluid intake - will send urine for culture, if positive will call with results and treatment needed. - UA DIP, URINE (POC) - URINE CULTURE 2. Nausea - ICD9: 787.02, ICD10: R11.0 Renew zofran, use as ordered 3. Migraine with aura, not intractable, without status migrainosus - ICD9: 346.00, ICD10: G43.109 Improving, continue prescribed medications, follow up with PCP prn 4. Sinus pain - ICD9: 478.19, ICD10: J34.89 - appears to be allergies Zyrtec 10 mg By mouth daily at bedtime Flonase 2 sprays in each nostril once a day When to seek higher level of care discussed Follow up with PCP prn Diagnosis and treatment plan were discussed and questions were answered to the patient's satisfaction. Pt acknowledged understanding of concepts and follow up plan. Specific signs and symptoms that would indicate the need for higher level of care were discussed in detail warranting prompt ER evaluation. Miriam Millard APRN.CNP [facility] 05-02-2023 Instructions Miriam Millard APRN.CNP - 05/02/2023 6:26 PM EDT No signs of Urinary tract infection Increase fluid intake Zofran as needed for nausea Naproxen as prescribed Zyrtec 10 mg By mouth daily at bedtime Flonase 2 sprays in each nostril once a day * Seek medical care immediately, call 911, go to ER if you have chest pain, difficulty breathing, shortness of breath, inability to swallow. documented in this encounter [facility] 05-02-2023 History of Presen t illness Narrative Subjective The history is provided by the patient. No language teacher was used. LAZARO Nassar is a 53 year old female who presents today for CC of frequency of urination for 3 days, headache and nausea from migraine. She is also having right sided sinus pressure that started yesterday, clear drainage. She denies any fever, chills body aches. She has used Imitrex and naproxen, zofran which has helped migraine, slightly improving. She denies any vaginal discharge, itching or odor. BP 118/80 Pulse 70 Temp 36.5 C (97.7 F) Resp 18 Wt 68.4 kg (150 lb 12.8 oz) LMP (LMP Unknown) SpO2 99% BMI 25.88 kg/m Social History Tobacco Use Smoking status: Never Smokeless tobacco: Never Substance Use Topics Alcohol use: No Drug use: No PAST MEDICAL HISTORY Diagnosis Date Hypothyroidism Migraines Psoriasis Psoriatic arthritis (HCC) Sciatica Sjogren's syndrome (HCC) I have confirmed and edited as necessary, the [facility] Review of Systems Constitutional: Negative for chills and fever. HENT: Positive for sinus pain. Negative for congestion, ear pain and sore throat. Respiratory: Negative for cough, sputum production, shortness of breath and wheezing. Cardiovascular: Negative for chest pain. Gastrointestinal: Negative for abdominal pain. Genitourinary: Positive for frequency. Negative for dysuria, flank pain, hematuria and urgency. Musculoskeletal: Negative for myalgias. Neurological: Positive for headaches. Objective Physical Exam Vitals and nursing note reviewed. Constitutional: Appearance: Normal appearance. HENT: Head: Normocephalic and atraumatic. Right Ear: Tympanic membrane, ear canal and external ear normal. Left Ear: Tympanic membrane, ear canal and external ear normal. Nose: No mucosal edema, congestion or rhinorrhea. Right Sinus: No maxillary sinus tenderness or frontal sinus tenderness. Left Sinus: No maxillary sinus tenderness or frontal sinus tenderness. Mouth/Throat: Pharynx: Uvula midline. No oropharyngeal exudate or posterior oropharyngeal erythema. Cardiovascular: Rate and Rhythm: Normal rate and regular rhythm. Heart sounds: Normal heart sounds. Pulmonary: Effort: Pulmonary effort is normal. Breath sounds: Normal breath sounds. Abdominal: General: Bowel sounds are normal. There is no abdominal bruit. Palpations: Abdomen is not rigid. There is no mass or pulsatile mass. Tenderness: There is no abdominal tenderness. There is no guarding or rebound. Negative signs include Mary's sign and McBurney's sign. Lymphadenopathy: Head: Right side of head: No submental, submandibular or tonsillar adenopathy. Left side of head: No submental, submandibular or tonsillar adenopathy. Cervical: No cervical adenopathy. Skin: General: Skin is warm and dry. Neurological: Mental Status: She is alert and oriented to person, place, and time. Psychiatric: Mood and Affect: Affect normal. ASSESSMENT/PLAN: 1. Burning with urination - ICD9: 788.1, ICD10: R30.0 (primary diagnosis) acute - UA positive for ketones, elevated specific gravity - appears to be decreased fluid intake - will send urine for culture, if positive will call with results and treatment needed. - UA DIP, URINE (POC) - URINE CULTURE 2. Nausea - ICD9: 787.02, ICD10: R11.0 Renew zofran, use as ordered 3. Migraine with aura, not intractable, without status migrainosus - ICD9: 346.00, ICD10: G43.109 Improving, continue prescribed medications, follow up with PCP prn 4. Sinus pain - ICD9: 478.19, ICD10: J34.89 - appears to be allergies Zyrtec 10 mg By mouth daily at bedtime Flonase 2 sprays in each nostril once a day When to seek higher level of care discussed Follow up with PCP prn Diagnosis and treatment plan were discussed and questions were answered to the patient's satisfaction. Pt acknowledged understanding of concepts and follow up plan. Specific signs and symptoms that would indicate the need for higher level of care were discussed in detail warranting prompt ER evaluation. Miriam Millard APRN.LILLIAN documented in this encounter [facility] 02-24-2023 Note HNO ID: [id number] Author: Shira Hubbard APRN.LILLIAN Service: ? Author Type: Nurse Practitioner Type: Progress Notes Filed: 02/24/2023 6:58 PM Note Text: CC: Patient presents with: Nausea: x 1 day, after migraine Patient gets frequent migraines. They are accompanied with nausea. Patient does see a neurologist for this. Patient said she has used Phenergan in the past with no side effects. Patient denies any abdominal pain fever chills. Patient denies other symptoms. HPI: Nataly Nassar is a 52 year old female who presents to the office with complaint of nausea for a few days. Symptoms are staying the same. Associated symptoms includes nausea. Denies body aches, fever, cough, dyspnea, vomiting , and diarrhea. Treatments tried include nothing so far. with no relief of symptoms. Sick contacts: unknown. History of asthma, frequent episodes of bronchitis, chronic bronchitis, bronchiectasis or COPD: No Smoker: No Seasonal/environmental allergies: No The ROS is otherwise negative. The patient's pmh, medications, allergies, and past visits are reviewed. PHYSICAL EXAM: BP 124/70 Pulse 76 Temp 36.4 ?C (97.6 ?F) Resp 16 Wt 67.7 kg (149 lb 3.2 oz) LMP (LMP Unknown) SpO2 98% BMI 25.61 kg/m? General appearance: alert, cooperative, pleasant, in no acute distress Head: Normocephalic Eyes: EOM's intact, conjunctiva pink and moist, no icterus, sclera white, non-injected Abdomen: Soft nondistended bowel sounds within normal limits. No tenderness on palpation. PAST MEDICAL HISTORY Diagnosis Date Hypothyroidism Migraines Psoriasis Psoriatic arthritis (HCC) Sciatica Sjogren's syndrome (HCC) PAST SURGICAL HISTORY Procedure Laterality Date COLONOSCOPY Unsure of specific date DEBRIDEMENT SUBCUTANEOUS TISSUE 20 SQ CM/< Left 7-8-16 PAST SURGICAL HISTORY OF mole removal US BREAST NEEDLE CORE BIOPSY LT Left 01/2016 ALLERGIES Patient has no known allergies. MEDICATIONS divalproex ER (DEPAKOTE ER) 500 mg 24 hr tablet Take 500 mg by mouth twice daily. levothyroxine (SYNTHROID) 100 mcg tablet Take 100 mcg by mouth every morning. Take on an empty stomach. albuterol HFA (PROVENTIL HFA, VENTOLIN HFA) 90 mcg/actuation inhaler Inhale 2 Puffs as instructed every 6 hours as needed for wheezing/shortness of breath. RESTASIS 0.05 % ophthalmic emulsion fluorometholone (FML LIQUID FILM) 0.1 % ophthalmic suspension levothyroxine (SYNTHROID) 50 mcg tablet Take 112 mcg by mouth daily before breakfast. divalproex DR (DEPAKOTE) 500 mg EC tablet Take 500 mg by mouth once daily. SUMAtriptan-Naproxen 85-500 mg per tablet Take 1 tablet by mouth as needed. propranolol ER (INDERAL LA) 160 mg Cs24 Take 160 mg by mouth once daily. omeprazole (PRILOSEC) 20 mg capsule Take 20 mg by mouth once daily. promethazine (PHENERGAN) 25 mg suppository 1 Suppository by RECTAL route every 6 hours as needed for nausea/vomiting for up to 7 days. benzonatate (TESSALON PERLES) 100 mg capsule Take 1-2 capsules by mouth three times daily as needed. (Patient not taking: Reported on 05/07/2022) benzonatate (TESSALON PERLE) 100 mg capsule Take 2 capsules by mouth three times daily as needed. (Patient not taking: Reported on 10/16/2021 ) mometasone (NASONEX) 50 mcg/actuation nasal spray Use 2 Sprays in the nose once daily. ferrous sulfate 325 mg (65 mg iron) tablet Take 325 mg by mouth daily with breakfast. (Patient not taking: Reported on 08/25/2021 ) LORATADINE (CLARITIN ORAL) Take by mouth once daily. (Patient not taking: Reported on 08/25/2021 ) Cholecalciferol, Vitamin D3, (VITAMIN D-3) 2,000 unit cap Take 1 tablet by mouth once daily. (Patient not taking: Reported on 08/25/2021 ) ACETAMINOPHEN/PAMABROM (MIDOL ORAL) Take by mouth as needed. (Patient not taking: Reported on 10/16/2021 ) SUMAtriptan-Naproxen (TREXIMET) 85-500 mg per tablet Take 1 tablet by mouth as needed. [place]-3 Fatty Acids-Vitamin E (FISH OIL) 1,000 mg cap Take 1 capsule by mouth as needed. (Patient not taking: Reported on 08/25/2021 ) FAMILY HISTORY Problem Relation Age of Onset Prostate Cancer Father Diabetes Mother other (heart disease) Mother Diabetes Maternal Grandmother Stroke Maternal Grandmother other (heart disease) Maternal Grandmother other (heart disease) Maternal Grandfather Cancer Maternal Aunt pancreatic cancer Social History Tobacco Use Smoking status: Never Smokeless tobacco: Never Substance Use Topics Alcohol use: No Drug use: No ASSESSMENT/PLAN: 1. Nausea - ICD9: 787.02, ICD10: R11.0 - PROMETHAZINE 25 MG RECTAL SUPPOSITORY Prescription instructions reviewed with patient as applicable. Potential red flag symptoms discussed with the patient. Reviewed appropriate action plan to take if red flag symptoms occur. Patient agreeable to treatment plan. Patient will follow-up with neurologist. Shira Hubbard APRN.LILLIAN [facility] 01-14-2023 Note HNO ID: [id number] Author: Kimberly Bojorquez APRN.HEALTH SCIENCE INSTRUCTOR Service: ? Author Type: Nurse Practitioner Type: Progress Notes Filed: 01/14/2023 6:01 PM Note Text: CC: Patient presents with: Nasal Congestion: Pt reported congestion, drainage x1 day. HPI: Nataly Nassar is a 52 year old female who presents to the office with complaint of respiratory symptoms since yesterday morning. Associated symptoms includes nasal congestion, rhinorrhea, and cough. Denies fever, ear pain, wheezing, dyspnea, and fatigue. Treatments tried include nothing so far. Sick contacts: no. History of asthma, frequent episodes of bronchitis, chronic bronchitis, bronchiectasis or COPD: No Smoker: No Seasonal/environmental allergies: Yes does not take anything for her allergies. Was working outside in the yard the day before The ROS is otherwise negative. The patient's pmh, medications, allergies, and past visits are reviewed. PHYSICAL EXAM: BP 122/68 Pulse 79 Temp 36.8 ?C (98.3 ?F) (Tympanic) Resp 18 Wt 69.1 kg (152 lb 6.4 oz) SpO2 98% BMI 26.16 kg/m? General appearance: alert, cooperative, pleasant, in no acute distress Head: Normocephalic Eyes: conjunctiva pink and moist, no icterus, sclera white, non-injected Ears: Right ear: External ear/canal- Normal, TM - clear with good landmarks. Left ear: External ear/canal- Normal, TM - clear with good landmarks Oropharynx:No erythema, exudates or tonsillar hypertrophy. Neck:supple and no adenopathy Heart: Negative. RRR without obvious murmur, gallop, or rubs. No ectopy. Lungs: clear to auscultation, without rales or wheeze, good air exchange ASSESSMENT/PLAN: 1. Viral URI - ICD9: 465.9, ICD10: J06.9 - Discussed viral etiology and rationale for treatment. - Symptomatic treatment with prn analgesia - Supportive care with fluids and rest - The patient may also use OTC cough and cold meds as needed. - Follow up in 7 to 10 dats if symptoms persist or sooner if worsening of symptoms Prescription instructions reviewed with patient as applicable. Potential red flag symptoms discussed with the patient. Reviewed appropriate action plan to take if red flag symptoms occur. Patient agreeable to treatment plan. Kimberly Bojorquez APRN.CNP [facility] 01-14-2023 Instructions Kimberly Bojorquez APRN.CNP - 01/14/2023 5:53 PM EDT Follow-up in 7 to 10 days if symptoms have not shown any signs of improvement or if worsening documented in this encounter [facility] 01-14-2023 History of Presen t illness Narrative CC: Patient presents with: Nasal Congestion: Pt reported congestion, drainage x1 day. HPI: Gwenna Nassar is a 52 year old female who presents to the office with complaint of respiratory symptoms since yesterday morning. Associated symptoms includes nasal congestion, rhinorrhea, and cough. Denies fever, ear pain, wheezing, dyspnea, and fatigue. Treatments tried include nothing so far. Sick contacts: no. History of asthma, frequent episodes of bronchitis, chronic bronchitis, bronchiectasis or COPD: No Smoker: No Seasonal/environmental allergies: Yes does not take anything for her allergies. Was working outside in the yard the day before The ROS is otherwise negative. The patient's pmh, medications, allergies, and past visits are reviewed. PHYSICAL EXAM: BP 122/68 Pulse 79 Temp 36.8 C (98.3 F) (Tympanic) Resp 18 Wt 69.1 kg (152 lb 6.4 oz) SpO2 98% BMI 26.16 kg/m General appearance: alert, cooperative, pleasant, in no acute distress Head: Normocephalic Eyes: conjunctiva pink and moist, no icterus, sclera white, non-injected Ears: Right ear: External ear/canal- Normal, TM - clear with good landmarks. Left ear: External ear/canal- Normal, TM - clear with good landmarks Oropharynx:No erythema, exudates or tonsillar hypertrophy. Neck:supple and no adenopathy Heart: Negative. RRR without obvious murmur, gallop, or rubs. No ectopy. Lungs: clear to auscultation, without rales or wheeze, good air exchange ASSESSMENT/PLAN: 1. Viral URI - ICD9: 465.9, ICD10: J06.9 - Discussed viral etiology and rationale for treatment. - Symptomatic treatment with prn analgesia - Supportive care with fluids and rest - The patient may also use OTC cough and cold meds as needed. - Follow up in 7 to 10 dats if symptoms persist or sooner if worsening of symptoms Prescription instructions reviewed with patient as applicable. Potential red flag symptoms discussed with the patient. Reviewed appropriate action plan to take if red flag symptoms occur. Patient agreeable to treatment plan. Kimberly Bojorquez APRN.CNP documented in this encounter [facility] 11-16-2022 Miscellaneous Notes Patient returning call from office. Provided information below from Miriam Millard CNP. Patient verbalized understanding. She states that she doesn't feel that she has been on the antibiotics long enough to know if they are helping. She states that she currently has a migraine so she will see how she is feeling and if symptoms do not improve she will return to for another specimen. Patient will contact her neurologist regarding migraine if needed. Left message for pt to call back. Elma Moody MA Phone call placed unable to leave a message phone rang, rang. Beryl Haile LPN Please notify patient that urine culture showed mixture of bacteria which suggests possible contamination upon collection. Advise her to finish the antibiotic if it is helping her symptoms but if not, then she will need to return to provide another specimen. Thank you. Miriam Millard APRN.LILLIAN documented in this encounter [facility] 11-14-2022 Note HNO ID: [id number] Author: SHAILESH Blackmon Service: ? Author Type: Physician Manager Of Customer Billing Type: Progress Notes Filed: 11/14/2022 11:28 AM Note Text: This note was created using [employer]. Subjective Nataly Nassar is a 52 year old female. HPI 52-year-old female presents for sore throat and UTI symptoms. Patient states that she has been having some burning with urination since last week. She states she has a little bit of nausea. No back pain or abdominal pain. No vomiting or diarrhea. No fevers. No blood in the urine. She states that she has had a sore throat for the past 4 days. No known exposure to strep. No difficulty swallowing. No fevers. No cough or other URI symptoms. No other complaints PAST MEDICAL HISTORY Diagnosis Date Hypothyroidism Migraines Psoriasis Psoriatic arthritis (HCC) Sciatica Sjogren's syndrome (HCC) PAST SURGICAL HISTORY Procedure Laterality Date COLONOSCOPY Unsure of specific date DEBRIDEMENT SUBCUTANEOUS TISSUE 20 SQ CM/< Left 7-8-16 PAST SURGICAL HISTORY OF mole removal US BREAST NEEDLE CORE BIOPSY LT Left 01/2016 ALLERGIES Patient has no known allergies. MEDICATIONS albuterol HFA (PROVENTIL HFA, VENTOLIN HFA) 90 mcg/actuation inhaler Inhale 2 Puffs as instructed every 6 hours as needed for wheezing/shortness of breath. RESTASIS 0.05 % ophthalmic emulsion fluorometholone (FML LIQUID FILM) 0.1 % ophthalmic suspension levothyroxine (SYNTHROID) 50 mcg tablet Take 112 mcg by mouth daily before breakfast. SUMAtriptan-Naproxen 85-500 mg per tablet Take 1 tablet by mouth as needed. propranolol ER (INDERAL LA) 160 mg Cs24 Take 160 mg by mouth once daily. omeprazole (PRILOSEC) 20 mg capsule Take 20 mg by mouth once daily. benzonatate (TESSALON PERLES) 100 mg capsule Take 1-2 capsules by mouth three times daily as needed. (Patient not taking: Reported on 05/07/2022) benzonatate (TESSALON PERLE) 100 mg capsule Take 2 capsules by mouth three times daily as needed. (Patient not taking: Reported on 10/16/2021 ) mometasone (NASONEX) 50 mcg/actuation nasal spray Use 2 Sprays in the nose once daily. ferrous sulfate 325 mg (65 mg iron) tablet Take 325 mg by mouth daily with breakfast. (Patient not taking: Reported on 08/25/2021 ) divalproex DR (DEPAKOTE) 500 mg EC tablet Take 500 mg by mouth once daily. LORATADINE (CLARITIN ORAL) Take by mouth once daily. (Patient not taking: Reported on 08/25/2021 ) Cholecalciferol, Vitamin D3, (VITAMIN D-3) 2,000 unit cap Take 1 tablet by mouth once daily. (Patient not taking: Reported on 08/25/2021 ) ACETAMINOPHEN/PAMABROM (MIDOL ORAL) Take by mouth as needed. (Patient not taking: Reported on 10/16/2021 ) SUMAtriptan-Naproxen (TREXIMET) 85-500 mg per tablet Take 1 tablet by mouth as needed. [place]-3 Fatty Acids-Vitamin E (FISH OIL) 1,000 mg cap Take 1 capsule by mouth as needed. (Patient not taking: Reported on 08/25/2021 ) FAMILY HISTORY Problem Relation Age of Onset Prostate Cancer Father Diabetes Mother other (heart disease) Mother Diabetes Maternal Grandmother Stroke Maternal Grandmother other (heart disease) Maternal Grandmother other (heart disease) Maternal Grandfather Cancer Maternal Aunt pancreatic cancer Social History Tobacco Use Smoking status: Never Smokeless tobacco: Never Substance Use Topics Alcohol use: No Drug use: No Review of Systems Constitutional: Negative for chills and fever. HENT: Positive for sore throat. Negative for congestion and ear pain. Respiratory: Negative for cough and shortness of breath. Cardiovascular: Negative for chest pain. Gastrointestinal: Positive for nausea. Negative for abdominal pain, diarrhea and vomiting. Genitourinary: Positive for dysuria. Negative for flank pain and hematuria. Objective BP 130/78 Pulse 81 Temp 36.5 ?C (97.7 ?F) (Tympanic) Resp 18 Wt 68 kg (150 lb) LMP (LMP Unknown) SpO2 98% BMI 25.75 kg/m? Physical Exam Vitals and nursing note reviewed. Constitutional: General: She is not in acute distress. Appearance: Normal appearance. She is not toxic-appearing. HENT: Right Ear: Tympanic membrane and ear canal normal. Left Ear: Tympanic membrane and ear canal normal. Nose: Nose normal. Mouth/Throat: Mouth: Mucous membranes are moist. Pharynx: Uvula midline. Posterior oropharyngeal erythema present. No oropharyngeal exudate. Tonsils: No tonsillar exudate. 1+ on the right. 1+ on the left. Eyes: Conjunctiva/sclera: Conjunctivae normal. Cardiovascular: Rate and Rhythm: Normal rate and regular rhythm. Pulmonary: Effort: Pulmonary effort is normal. Breath sounds: Normal breath sounds. Abdominal: Tenderness: There is no abdominal tenderness. There is no right CVA tenderness or left CVA tenderness. Neurological: Mental Status: She is alert. Assessment and Plan ASSESSMENT/PLAN: 1. Burning with urination - ICD9: 788.1, ICD10: R30.0 (primary diagnosis) (more content not included)... [facility] 11-14-2022 History of Presen t illness Narrative This note was created using [employer]. Subjective Nataly Nassar is a 52 year old female. HPI 52-year-old female presents for sore throat and UTI symptoms. Patient states that she has been having some burning with urination since last week. She states she has a little bit of nausea. No back pain or abdominal pain. No vomiting or diarrhea. No fevers. No blood in the urine. She states that she has had a sore throat for the past 4 days. No known exposure to strep. No difficulty swallowing. No fevers. No cough or other URI symptoms. No other complaints PAST MEDICAL HISTORY Diagnosis Date Hypothyroidism Migraines Psoriasis Psoriatic arthritis (HCC) Sciatica Sjogren's syndrome (HCC) PAST SURGICAL HISTORY Procedure Laterality Date COLONOSCOPY Unsure of specific date DEBRIDEMENT SUBCUTANEOUS TISSUE 20 SQ CM/< Left -8-16 PAST SURGICAL HISTORY OF mole removal US BREAST NEEDLE CORE BIOPSY LT Left 01/2016 ALLERGIES Patient has no known allergies. MEDICATIONS albuterol HFA (PROVENTIL HFA, VENTOLIN HFA) 90 mcg/actuation inhaler Inhale 2 Puffs as instructed every 6 hours as needed for wheezing/shortness of breath. RESTASIS 0.05 % ophthalmic emulsion fluorometholone (FML LIQUID FILM) 0.1 % ophthalmic suspension levothyroxine (SYNTHROID) 50 mcg tablet Take 112 mcg by mouth daily before breakfast. SUMAtriptan-Naproxen 85-500 mg per tablet Take 1 tablet by mouth as needed. propranolol ER (INDERAL LA) 160 mg Cs24 Take 160 mg by mouth once daily. omeprazole (PRILOSEC) 20 mg capsule Take 20 mg by mouth once daily. benzonatate (TESSALON PERLES) 100 mg capsule Take 1-2 capsules by mouth three times daily as needed. (Patient not taking: Reported on 05/07/2022) benzonatate (TESSALON PERLE) 100 mg capsule Take 2 capsules by mouth three times daily as needed. (Patient not taking: Reported on 10/16/2021 ) mometasone (NASONEX) 50 mcg/actuation nasal spray Use 2 Sprays in the nose once daily. ferrous sulfate 325 mg (65 mg iron) tablet Take 325 mg by mouth daily with breakfast. (Patient not taking: Reported on 08/25/2021 ) divalproex DR (DEPAKOTE) 500 mg EC tablet Take 500 mg by mouth once daily. LORATADINE (CLARITIN ORAL) Take by mouth once daily. (Patient not taking: Reported on 08/25/2021 ) Cholecalciferol, Vitamin D3, (VITAMIN D-3) 2,000 unit cap Take 1 tablet by mouth once daily. (Patient not taking: Reported on 08/25/2021 ) ACETAMINOPHEN/PAMABROM (MIDOL ORAL) Take by mouth as needed. (Patient not taking: Reported on 10/16/2021 ) SUMAtriptan-Naproxen (TREXIMET) 85-500 mg per tablet Take 1 tablet by mouth as needed. [place]-3 Fatty Acids-Vitamin E (FISH OIL) 1,000 mg cap Take 1 capsule by mouth as needed. (Patient not taking: Reported on 08/25/2021 ) FAMILY HISTORY Problem Relation Age of Onset Prostate Cancer Father Diabetes Mother other (heart disease) Mother Diabetes Maternal Grandmother Stroke Maternal Grandmother other (heart disease) Maternal Grandmother other (heart disease) Maternal Grandfather Cancer Maternal Aunt pancreatic cancer Social History Tobacco Use Smoking status: Never Smokeless tobacco: Never Substance Use Topics Alcohol use: No Drug use: No Review of Systems Constitutional: Negative for chills and fever. HENT: Positive for sore throat. Negative for congestion and ear pain. Respiratory: Negative for cough and shortness of breath. Cardiovascular: Negative for chest pain. Gastrointestinal: Positive for nausea. Negative for abdominal pain, diarrhea and vomiting. Genitourinary: Positive for dysuria. Negative for flank pain and hematuria. Objective BP 130/78 Pulse 81 Temp 36.5 C (97.7 F) (Tympanic) Resp 18 Wt 68 kg (150 lb) LMP (LMP Unknown) SpO2 98% BMI 25.75 kg/m Physical Exam Vitals and nursing note reviewed. Constitutional: General: She is not in acute distress. Appearance: Normal appearance. She is not toxic-appearing. HENT: Right Ear: Tympanic membrane and ear canal normal. Left Ear: Tympanic membrane and ear canal normal. Nose: Nose normal. Mouth/Throat: Mouth: Mucous membranes are moist. Pharynx: Uvula midline. Posterior oropharyngeal erythema present. No oropharyngeal exudate. Tonsils: No tonsillar exudate. 1+ on the right. 1+ on the left. Eyes: Conjunctiva/sclera: Conjunctivae normal. Cardiovascular: Rate and Rhythm: Normal rate and regular rhythm. Pulmonary: Effort: Pulmonary effort is normal. Breath sounds: Normal breath sounds. Abdominal: Tenderness: There is no abdominal tenderness. There is no right CVA tenderness or left CVA tenderness. Neurological: Mental Status: She is alert. Assessment and Plan ASSESSMENT/PLAN: 1. Burning with urination - ICD9: 788.1, ICD10: R30.0 (primary diagnosis) - UA positive for suma esterase and ketones - Send urine for culture - RX for Macrobid - Patient education for prevention given - UA DIP, URINE (POC) - URINE CULTURE 2. Sore throat - ICD9: 462, ICD10: J02.9 - suspect viral - Alere Strep Test negative, no culture pending - Discussed supportive care treatment with fluids, rest and analgesia. - STREP A MOLECULAR (POC) Diagnosis and treatment plan were discussed and questions were answered to the patient's satisfaction. Pt acknowledged understanding of concepts and follow up plan. Specific signs and symptoms that would indicate the need for higher level of care were discussed in detail warranting prompt ER evaluation. SHAILESH Blackmon documented in this encounter [facility] 05-16-2022 History of Presen t illness Narrative Radiology Service Progress Note PATIENT NAME: Nataly Nassar DATE OF SERVICE: May 16, 2022 TIME: 1:56 PM PATIENT IDENTITY VERIFICATION COMPLETED USING TWO (2) IDENTIFIERS: Name and Date of confirmed by patient verbally. FALL SCREENING: Has the patient had 2 falls in the last year or 1 fall with injury or currently using an Ambulatory Assistive Device (Walker, Cane, Wheelchair, Crutches, etc.)? No PATIENT GENDER DATA: Female. status: : No status: NO. PATIENT RELEVANT IMPLANT DATA REVIEWED: Not Applicable RADIOLOGY DEPARTMENT: General X-ray: Exam(s) Completed: Chest X-Ray PERIPHERAL IV DATA: Not applicable SIGNED BY: RT Caroline(R) May 16, 2022 1:56 PM documented in this encounter [facility] 05-07-2022 History of Presen t illness Narrative Subjective Cough Pertinent negatives include no chest pain, no chills, no sore throat, no myalgias and no shortness of breath. Nataly Nassar is a 52 year old female who presents with 2 weeks of cough, nasal congestion and drainage. She was positive for COVID on 04/29 and her cough and URI symptoms never fully resolved. She has been taking Tessalon Perles and Benadryl at home without relief. She has not had a fever. She has not had any known recent sick contacts. Review of Systems Constitutional: Negative for chills and fever. HENT: Positive for congestion and sinus pain. Negative for sore throat. Respiratory: Positive for cough. Negative for sputum production and shortness of breath. Cardiovascular: Negative for chest pain. Gastrointestinal: Positive for nausea. Negative for diarrhea and vomiting. Musculoskeletal: Negative for myalgias. BP 116/82 Pulse 82 Temp 36.7 C (98 F) Resp 16 Wt 69.4 kg (153 lb) LMP 02/20/2017 SpO2 99% BMI 26.26 kg/m PAST MEDICAL HISTORY Diagnosis Date Hypothyroidism Migraines Psoriasis Psoriatic arthritis (HCC) Sciatica Sjogren's syndrome (HCC) PAST SURGICAL HISTORY Procedure Laterality Date COLONOSCOPY Unsure of specific date DEBRIDEMENT SUBCUTANEOUS TISSUE 20 SQ CM/< Left 7-8-16 PAST SURGICAL HISTORY OF mole removal US BREAST NEEDLE CORE BIOPSY LT Left 01/2016 ALLERGIES Patient has no known allergies. MEDICATIONS RESTASIS 0.05 % ophthalmic emulsion fluorometholone (FML LIQUID FILM) 0.1 % ophthalmic suspension levothyroxine (SYNTHROID) 50 mcg tablet Take 112 mcg by mouth daily before breakfast. divalproex DR (DEPAKOTE) 500 mg EC tablet Take 500 mg by mouth once daily. SUMAtriptan-Naproxen 85-500 mg per tablet Take 1 tablet by mouth as needed. propranolol ER (INDERAL LA) 160 mg Cs24 Take 160 mg by mouth once daily. omeprazole (PRILOSEC) 20 mg capsule Take 20 mg by mouth once daily. amoxicillin-clavulanic acid (AUGMENTIN) 875-125 mg per tablet Take 1 tablet by mouth twice daily for 5 days. predniSONE (DELTASONE) 20 mg tablet Take 2 tablets by mouth once daily for 4 days. Take daily with food. albuterol HFA (PROVENTIL HFA, VENTOLIN HFA) 90 mcg/actuation inhaler Inhale 2 Puffs as instructed every 6 hours as needed for wheezing/shortness of breath. benzonatate (TESSALON PERLES) 100 mg capsule Take 1-2 capsules by mouth three times daily as needed. (Patient not taking: Reported on 05/07/2022) benzonatate (TESSALON PERLE) 100 mg capsule Take 2 capsules by mouth three times daily as needed. (Patient not taking: Reported on 10/16/2021 ) mometasone (NASONEX) 50 mcg/actuation nasal spray Use 2 Sprays in the nose once daily. ferrous sulfate 325 mg (65 mg iron) tablet Take 325 mg by mouth daily with breakfast. (Patient not taking: Reported on 08/25/2021 ) LORATADINE (CLARITIN ORAL) Take by mouth once daily. (Patient not taking: Reported on 08/25/2021 ) Cholecalciferol, Vitamin D3, (VITAMIN D-3) 2,000 unit cap Take 1 tablet by mouth once daily. (Patient not taking: Reported on 08/25/2021 ) ACETAMINOPHEN/PAMABROM (MIDOL ORAL) Take by mouth as needed. (Patient not taking: Reported on 10/16/2021 ) SUMAtriptan-Naproxen (TREXIMET) 85-500 mg per tablet Take 1 tablet by mouth as needed. [place]-3 Fatty Acids-Vitamin E (FISH OIL) 1,000 mg cap Take 1 capsule by mouth as needed. (Patient not taking: Reported on 08/25/2021 ) FAMILY HISTORY Problem Relation Age of Onset Prostate Cancer Father Diabetes Mother other (heart disease) Mother Diabetes Maternal Grandmother Stroke Maternal Grandmother other (heart disease) Maternal Grandmother other (heart disease) Maternal Grandfather Cancer Maternal Aunt pancreatic cancer Social History Tobacco Use Smoking status: Never Smokeless tobacco: Never Substance Use Topics Alcohol use: No Drug use: No Objective Physical Exam Vitals and nursing note reviewed. Constitutional: Appearance: Normal appearance. HENT: Right Ear: Tympanic membrane, ear canal and external ear normal. Left Ear: Tympanic membrane, ear canal and external ear normal. Nose: Nose normal. Mouth/Throat: Mouth: Mucous membranes are moist. Pharynx: Oropharynx is clear. Uvula midline. No oropharyngeal exudate or posterior oropharyngeal erythema. Cardiovascular: Rate and Rhythm: Normal rate and regular rhythm. Heart sounds: Normal heart sounds. Pulmonary: Effort: Pulmonary effort is normal. No respiratory distress. Breath sounds: Normal breath sounds. No wheezing (few, scattered) or rales. Musculoskeletal: Cervical back: Neck supple. Lymphadenopathy: Cervical: No cervical adenopathy. Skin: General: Skin is warm and dry. Findings: No erythema or rash. Neurological: Mental Status: She is alert. ASSESSMENT/PLAN: 1. Sinobronchitis - ICD9: 473.9, 490, ICD10: J32.9, J40 - Will begin treatment with Augmentin 875 mg PO BID for 5 days - Supportive care with plenty of fluids, rest, and analgesia prn. - PREDNISONE 20 MG TABLET - ALBUTEROL SULFATE HFA 90 MCG/ACTUATION AEROSOL INHALER - Follow-up with your PCP in 3-5 days if symptoms have not improved or sooner if symptoms worsen - Discussed red flags and need for immediate medical evaluation if any occur. - Discussed supportive care treatment with fluids, rest and analgesia. - Discussed expected course of illness Gely Cuadra APRN.HEALTH SCIENCE INSTRUCTOR documented in this encounter [facility] 05-07-2022 Instructions Gely Cuadra APRN.CNP - 05/07/2022 2:58 PM EDT Images from the original note were not included. ASSESSMENT/PLAN: 1. Sinobronchitis - ICD9: 473.9, 490, ICD10: J32.9, J40 - Will begin treatment with Augmentin 875 mg PO BID for 5 days - Supportive care with plenty of fluids, rest, and analgesia prn. - PREDNISONE 20 MG TABLET - ALBUTEROL SULFATE HFA 90 MCG/ACTUATION AEROSOL INHALER - Follow-up with your PCP in 3-5 days if symptoms have not improved or sooner if symptoms worsen - Discussed red flags and need for immediate medical evaluation if any occur. - Discussed supportive care treatment with fluids, rest and analgesia. - Discussed expected course of illness Gely Cuadra APRN.LILLIAN ACUTE BRONCHITIS: You have acute bronchitis. This means the airway passages in your lungs are inflamed. Bronchitis may be caused by viruses or bacteria. Inhaling cigarette smoke will always make it worse. Exposure to irritating chemicals or second hand smoke as well as allergies can contribute to bronchitis. Repeat episodes of bronchitis may cause lifelong lung problems. Acute bronchitis is usually treated with rest, fluids, cough medicine, and possibly antibiotics or inhaled medicine to open up the small airways. It is very important that you avoid smoke and drink increased amounts of fluids. A cool air vaporizer can help thin bronchial secretions. This makes it easier to cough and clear your chest. If you are a cigarette smoker, consider using nicotine gum or skin patches to help you withdraw. Recovery from bronchitis is often slow, but you should start feeling better after 2-3 days of treatment. Please call your doctor or return here if you have any of the following symptoms: Increased fever, chills, or chest pain. Severe shortness of breath or bloody sputum. Do not improve after 3 days of proper treatment. Adult Sinusitis Patient Education What is Sinusitis? Sinusitis [[id number]] is inflammation of the sinuses or swelling of the lining of the sinus cavity or nose. During an infection the sinuses become blocked with fluid causing swelling of the lining of the sinuses. Symptoms: (viral and bacterial infections) Stuffy nose Runny nose Postnasal drip Fever Toothache Headache Tiredness Cough Sore throat Face and head pressure and or pain Common causes: 98% of sinus infections are viral caused by viruses. Risk Factors of Sinusitis Include: Allergies, air pollution, indoor humidity and outdoor temperature changes, andstructural changes in the nose may contribute to sinus pain, pressure and congestion. When to get help? Temperature greater than 100.4 F Symptoms lasting more than 10 days or worsening symptoms greater than 7-10 days. If you do not improve or worsen after a course of antibiotics, you should be re-examined. Diagnosis and Treatment: Your healthcare provider will ask a number of questions about your symptoms and how long they have occurred. If symptoms of sinusitis persist greater than 10 days, it is possible you have a bacterial sinus infection and an antibiotic is prescribed. If it is viral, antibiotics will not help. You may be instructed to take [id number] medications for symptoms. including fever reducers acetaminophen or ibuprofen, nasal saline spray, cough and cold preparations and decongestants as prescribed by the physician, nurse practitioner or physician restaurant assistant. Self-Care and Prevention: Rest Fluids for hydration Good hand washing Humidifier Avoid smoking and exposure to second hand smoke Avoid sick contacts documented in this encounter [facility] 04-30-2022 Miscellaneous Notes Patient notified.Anais Byrd LPN Let patient know their covid test was positive. She needs to quarantine for 5 days from first symptoms and wear a mask for 5 more days after quarantine. If she gets short of breath or chest pain or feeling very ill needs seen in the ER. documented in this encounter [facility] 10-16-2021 History of Presen t illness Narrative Subjective HPI Nontoxic-appearing female presents urgent care chief complaint left ear pain and neck tenderness. Patient states pain started approximately 3 days ago. Associated symptoms swollen lymph nodes and left ear pain. Denies any known sick contacts no OTC medication use. Did have COVID-19 approximately 2 months ago. States did have some residual symptoms from COVID-19. Denies any fever body aches chills nausea vomiting abdominal pain headaches dizziness change in bowel or bladder habits. Past medical history prescription medication use allergies reviewed. .Patient presents with: Ear Pain: left ear and neck pain x 3 days PAST MEDICAL HISTORY Diagnosis Date Hypothyroidism Migraines Psoriasis Psoriatic arthritis (HCC) Sciatica Sjogren's syndrome (HCC) PAST SURGICAL HISTORY Procedure Laterality Date COLONOSCOPY Unsure of specific date DEBRIDEMENT SUBCUTANEOUS TISSUE 20 SQ CM/< Left 02-02-16 PAST SURGICAL HISTORY OF mole removal US BREAST NEEDLE CORE BIOPSY LT Left 01/2016 ALLERGIES Patient has no known allergies. MEDICATIONS albuterol HFA (PROVENTIL HFA, VENTOLIN HFA) 90 mcg/actuation inhaler Inhale 2 Puffs as instructed every 6 hours as needed for wheezing/shortness of breath. RESTASIS 0.05 % ophthalmic emulsion fluorometholone (FML LIQUID FILM) 0.1 % ophthalmic suspension levothyroxine (SYNTHROID) 50 mcg tablet Take 112 mcg by mouth daily before breakfast. divalproex DR (DEPAKOTE) 500 mg EC tablet Take 500 mg by mouth once daily. SUMAtriptan-Naproxen (TREXIMET) 85-500 mg per tablet Take 1 tablet by mouth as needed. propranolol ER (INDERAL LA) 160 mg Cs24 Take 160 mg by mouth once daily. omeprazole (PRILOSEC) 20 mg capsule Take 20 mg by mouth once daily. benzonatate (TESSALON PERLE) 100 mg capsule Take 2 capsules by mouth three times daily as needed. mometasone (NASONEX) 50 mcg/actuation nasal spray Use 2 Sprays in the nose once daily. ferrous sulfate 325 mg (65 mg iron) tablet Take 325 mg by mouth daily with breakfast. LORATADINE (CLARITIN ORAL) Take by mouth once daily. Cholecalciferol, Vitamin D3, (VITAMIN D-3) 2,000 unit cap Take 1 tablet by mouth once daily. ACETAMINOPHEN/PAMABROM (MIDOL ORAL) Take by mouth as needed. SUMAtriptan-Naproxen (TREXIMET) 85-500 mg per tablet Take 1 tablet by mouth as needed. [place]-3 Fatty Acids-Vitamin E (FISH OIL) 1,000 mg cap Take 1 capsule by mouth as needed. FAMILY HISTORY Problem Relation Age of Onset Prostate Cancer Father Diabetes Mother other (heart disease) Mother Diabetes Maternal Grandmother Stroke Maternal Grandmother other (heart disease) Maternal Grandmother other (heart disease) Maternal Grandfather Cancer Maternal Aunt pancreatic cancer Social History Tobacco Use Smoking status: Never Smoker Smokeless tobacco: Never Used Substance Use Topics Alcohol use: No Drug use: No BP 124/80 Pulse 74 Temp 36.9 C (98.5 F) (Tympanic) Resp 18 Wt 69.4 kg (153 lb) LMP 02/20/2017 SpO2 98% BMI 26.26 kg/m Review of Systems Constitutional: Negative for chills, fever and malaise/fatigue. HENT: Positive for ear pain. Negative for congestion, ear discharge, sinus pain and sore throat. Eyes: Negative for blurred vision, pain, discharge and redness. Respiratory: Negative for cough, hemoptysis, sputum production, shortness of breath, wheezing and stridor. Cardiovascular: Negative for chest pain. Gastrointestinal: Negative for abdominal pain, diarrhea, nausea and vomiting. Musculoskeletal: Negative for myalgias. Skin: Negative for itching and rash. Neurological: Negative for dizziness and headaches. Objective Physical Exam Vitals and nursing note reviewed. Constitutional: General: She is not in acute distress. Appearance: She is not diaphoretic. HENT: Head: Normocephalic and atraumatic. Jaw: No trismus, tenderness, swelling, pain on movement or malocclusion. Right Ear: Hearing, tympanic membrane, ear canal and external ear normal. No decreased hearing noted. No drainage, swelling or tenderness. No mastoid tenderness. Tympanic membrane is not perforated, erythematous or bulging. Left Ear: Hearing, tympanic membrane, ear canal and external ear normal. No decreased hearing noted. No drainage, swelling or tenderness. No mastoid tenderness. Tympanic membrane is not perforated, erythematous or bulging. Ears: Comments: Clear fluid noted behind bilateral TMs. Mouth/Throat: Lips: [place]. Mouth: Mucous membranes are moist. Pharynx: Oropharynx is clear. Uvula midline. No pharyngeal swelling, oropharyngeal exudate, posterior oropharyngeal erythema or uvula swelling. Eyes: General: Right eye: No discharge. Left eye: No discharge. Conjunctiva/sclera: Conjunctivae normal. Pupils: Pupils are equal, round, and reactive to light. Cardiovascular: Rate and Rhythm: Normal rate and regular rhythm. Heart sounds: Normal heart sounds. Pulmonary: Effort: Pulmonary effort is normal. No respiratory distress. Breath sounds: Normal breath sounds. No wheezing or rales. Chest: Chest wall: No tenderness. Abdominal: Palpations: Abdomen is soft. Tenderness: There is no abdominal tenderness. Musculoskeletal: General: No tenderness. Normal range of motion. Cervical back: Normal range of motion and neck supple. Lymphadenopathy: Head: Right side of head: No submental, submandibular, tonsillar, preauricular, posterior auricular or occipital adenopathy. Left side of head: No submental, submandibular, tonsillar, preauricular, posterior auricular or occipital adenopathy. Cervical: Cervical adenopathy present. Right cervical: No superficial or posterior cervical adenopathy. Left cervical: No superficial or posterior cervical adenopathy. Skin: General: Skin is warm and dry. Findings: No rash. Neurological: Mental Status: She is alert and oriented to person, place, and time. ASSESSMENT/PLAN: 1. Otalgia, left - ICD9: 388.70, ICD10: H92.02 No otorrhea noted. No external erythema edema noted. No evidence of bacterial infection. Pain is 3-4 out of 10. Has not used any OTC medications. Patient was instructed on the use of antihistamines and analgesics. Will follow up with PCP 3 to 5 days symptoms are not improving. Suspicious of viral etiology at this point. Patient was educated on supportive therapies.Patient was instructed to immediately proceed to emergency room for any new, worsening, or symptoms lasting longer than anticipated. The patient's clinical presentation is otherwise unremarkable at this time. Based on exam and clinical finding, the patient is stable for discharge. Plan of care was discussed with patient. Patient verbalizes understanding and agrees to plan of care. This note was generated using [employer] software. It may contain errors in wording, punctuation, or spelling. Jamin Montiel APRN.LILLIAN documented in this encounter [facility] Evaluation + Plan note No data available for this section [facility] Evaluation note Diagnosis Otalgia, left- Primary documented in this encounter [facility] noteNo assessment information availableWKettering Health Work Phone: Evaluation note* Diagnosis Sinobronchitis- Primary Unspecified sinusitis (chronic) [facility] Diagnosis Burning with urination- Primary Dysuria Sore throat Acute pharyngitis [facility] Diagnosis Viral URI- Primary Acute upper respiratory infections of unspecified site [facility] Diagnosis Burning with urination- Primary Dysuria Nausea Nausea alone Migraine with aura, not intractable, without status migrainosus Sinus pain Other diseases of nasal cavity and sinuses [facility] Diagnosis URI, acute- Primary Acute upper respiratory infections of unspecified site Dysuria [facility] Diagnosis Subacute cough Cough [facility] Diagnosis Cough [facility] No data available for this section [facility] Discharge instructions Additional Instructions Follow-up with your neurologist for your [facility] Work Phone: Reason for visit Narrative* Diagnostic Procedure Only (Routine) - Closed Specialty Diagnoses / Procedures Referred By Contac t Referred To Contact Radiology / [facility] Diagnoses xr chest rm 3 Procedures XR CHEST Adilia Rand, SAFETY LAMP KEEPER.HEALTH SCIENCE INSTRUCTOR [address] [place] [address] Radio General [facility] [address] [place] [address] Referral ID Status Reason Start Date Expiration Date Visits Re quested Visits Authorized [id number] Closed 08/16/2021 07/27/2022 1 1 [facility] Summary Purpose Family History No Family History Records Found Relationship Condition Age at Onset Recorded Date/T minna father Malignant neoplasm Unknown Advance Directives No Advanced Directives Records Found Advance Directive Response Recorded Date/ Time Advance Directives No February 01 11:33am Living Will No March 04, 2022 8:21pm Power of Service Aide No March 04 8:21pm Advance Directive Response Recorded Date/ Time Advance Directives No February 01 6 10:33am Living Will No March 04, 2022 7:21pm Power of Service Aide No March 04 7:21pm Advance Directive Response Recorded Date/ Time Advance Directives No February 01 11:33am Living Will No February 13, 2023 3:13pm Power of Service Aide No February 13 3:13pm Advance Directive Response Recorded Date/ Time Advance Directives No February 01 6 10:33am Living Will No February 13, 2023 2:13pm Power of Service Aide No February 13 2:13pm Chief Complaint and Reason for Visit Chief Complaint migraine Chief Complaint ABD PAIN Chief Complaint MIGRAIN Health Concerns Infection Onset Date Last Indicated Resolved Time COVID-19 Confirmed 04/29/2022 04/29/2022 Infection Onset Date Last Indicated Resolved Time COVID-19 Rule-Out 05/08/2023 05/08/2023 Additional Source Comments INFORMATION SOURCE (unrecogn ized section and content) DATE CREATED AUTHOR [facility]/27/[address] [facility] DATE CREATED AUTHOR AUTHOR'S ORGANIZ ATION 07/26/[address] [facility] DATE CREATED AUTHOR AUTHOR'S ORGANIZ ATION 03/21/2024 [facility] ([place]) DATE CREATED AUTHOR AUTHOR'S ORGANIZ ATION 05/27/[address] [facility] DATE CREATED AUTHOR AUTHOR'S ORGANIZ ATION 09/19/2024 [facility] Source Comments (unrecognize d section and content) In the event this informatio n is protected by the Federal Confidentiality of Alcohol and Drug Abuse Patient Records regulations: The Federal rules restrict any use of the information to criminally investigate or prosecute any alcohol or drug abuse patient.[facility] the event this information is protected by the Federal Confidentiality of Alcohol and Drug Abuse Patient Records regulations: The Federal rules restrict any use of the information to criminally investigate or prosecute any alcohol or drug abuse patient.[facility] the event this information is protected by the Federal Confidentiality of Alcohol and Drug Abuse Patient Records regulations: The Federal rules restrict any use of the information to criminally investigate or prosecute any alcohol or drug abuse patient.[facility] the event this information is protected by the Federal Confidentiality of Alcohol and Drug Abuse Patient Records regulations: The Federal rules restrict any use of the information to criminally investigate or prosecute any alcohol or drug abuse patient.[facility] Hospital[facility] the event this information is protected by the Federal Confidentiality of Alcohol and Drug Abuse Patient Records regulations: The Federal rules restrict any use of the information to criminally investigate or prosecute any alcohol or drug abuse patient.[facility] Hospital[facility] the event this information is protected by the Federal Confidentiality of Alcohol and Drug Abuse Patient Records regulations: The Federal rules restrict any use of the information to criminally investigate or prosecute any alcohol or drug abuse patient.[facility] Hospital[facility] the event this information is protected by the Federal Confidentiality of Alcohol and Drug Abuse Patient Records regulations: The Federal rules restrict any use of the information to criminally investigate or prosecute any alcohol or drug abuse patient.[facility] Hospital[facility] the event this information is protected by the Federal Confidentiality of Alcohol and Drug Abuse Patient Records regulations: The Federal rules restrict any use of the information to criminally investigate or prosecute any alcohol or drug abuse patient.[facility] Hospital[facility] the event this information is protected by the Federal Confidentiality of Alcohol and Drug Abuse Patient Records regulations: The Federal rules restrict any use of the information to criminally investigate or prosecute any alcohol or drug abuse patient.[facility] Hospital[facility] the event this information is protected by the Federal Confidentiality of Alcohol and Drug Abuse Patient Records regulations: The Federal rules restrict any use of the information to criminally investigate or prosecute any alcohol or drug abuse patient.[facility] HospitalIn the event this information is protected by the Federal Confidentiality of Alcohol and Drug Abuse Patient Records regulations: The Federal rules restrict any use of the information to criminally investigate or prosecute any alcohol or drug abuse patient.[facility] HospitalIn the event this information is protected by the Federal Confidentiality of Alcohol and Drug Abuse Patient Records regulations: The Federal rules restrict any use of the information to criminally investigate or prosecute any alcohol or drug abuse patient.[facility] Reason for Visit (unrecogniz ed section and content) Reason Comments Ear Pain left ear and neck pa in x 3 days Reason Comments Results Reason Comments Cough nausea, chest and he ad congestion, fatigue x 2 weeks, + covid 10-3-22 Specialty Diagnoses / Procedures Referred By Contac t Referred To Contact Internal Medicine / [facility] Diagnoses Cough Nausea cough, nausea, congestion, Procedures OFFICE/OUTPATIENT ESTABLISHED MOD MDM 30-39 MIN EST SAME DAY Self [facility] [address] [place] [address] Referral ID Status Reason Start Date Expiration Date Visits Re quested Visits Authorized [id number] Closed 05/07/2022 07/27/2022 1 1 Reason Comments Urinary Problem Pt reported burning with urination, throat pain,nausea Isaacs x 5 days. Specialty Diagnoses / Procedures Referred By Contac t Referred To Contact Emergency Medicine / [facility] Diagnoses Nausea Sore throat Headache UTI (urinary tract infection) nausea, sore throat, headache, possible uti Procedures OFFICE/OUTPATIENT ESTABLISHED MOD MDM 30-39 MIN EST SAME DAY Self Deana Bradley PA [address] [place] [address] Referral ID Status Reason Start Date Expiration Date Visits Re quested Visits Authorized [id number] Closed 11/14/2022 07/27/2023 1 1 Reason Comments Nasal Congestion Pt reported congesti on, drainage x1 day. Reason Comments Urinary Problem Burning with urinati on x 3 daysMigraine Reason Comments Follow Up Reason Comments Cough Nausea, lightheaded, chills, back ache, drainage x 1 day Specialty Diagnoses / Procedures Referred By Telma denton Referred To Contact Radiology / [facility] Diagnoses room 2 Procedures RADIOLOGIC EXAM CHEST 2 VIEWS XR CHEST Adilia Rand APRN.HEALTH SCIENCE INSTRUCTOR [address] [place] [address] [facility] [address] [place] [address] Referral ID Status Reason Start Date Expiration Date Visits Re quested Visits Authorized [id number] Closed 05/16/2022 07/27/2022 1 1 Care Teams (unrecognized sec tion and content) Hospital Pharmacy Technician Relationship Specialty Start Date End Date Justin Johnson MD PCP - General Family Practice 05/13/16 Hospital Pharmacy Technician Relationship Specialty Start Date End Date Justin Johnson MD PCP - General Family Medicine 05/13/16 Hospital Pharmacy Technician Relationship Specialty Start Date End Date Justin Johnson MD PCP - General Family Medicine 05/13/16 Team Status: Active Member Role Status Dates Dr. Justin Johnson MD Family Provider Active Dr. Shreya Black DO Primary Care Provider Active Team Status: Inactive Member Role Status Dates Dr. Shreya Black DO Primary Care Provider, Attending Markie rocha Active Hospital Pharmacy Technician Relationship Specialty Start Date End Date Justin Johnson MD PCP - General Family Medicine 05/13/16 Hospital Pharmacy Technician Relationship Specialty Start Date End Date Justin Johnson MD PCP - General Family Medicine 05/13/16 Hospital Pharmacy Technician Relationship Specialty Start Date End Date Justin Johnson MD PCP - General Family Medicine 05/13/16 Team Status: Inactive Member Role Status Dates Dr. Shreya Black DO Primary Care Provider Active Dr. James Alexandra MD Emergency Provider Active Hospital Pharmacy Technician Relationship Specialty Start Date End Date Justin Johnson MD PCP - General Family Medicine 05/13/16 Hospital Pharmacy Technician Relationship Specialty Start Date End Date Justin Johnson MD PCP - General Family Medicine 05/13/16 Hospital Pharmacy Technician Relationship Specialty Start Date End Date Justin Johnson MD PCP - General Family Medicine 05/13/16 Hospital Pharmacy Technician Relationship Specialty Start Date End Date Justin Johnson MD PCP - General Family Medicine 05/13/16 Team Status: Inactive Member Role Status Dates Dr. Shreya Black DO Primary Care Provider Active Dr. James Alexandra MD Attending Provider, Emergency Pr ovider Active Team Status: Inactive Member Role Status Dates Dr. Shreya Black DO Primary Care Provider Active Olesya Kohli NP-Stephanie Attending Provider, Referring Prov ider Active Hospital Pharmacy Technician Relationship Specialty Start Date End Date Justin Johnson MD PCP - General Family Medicine 05/13/16 Hospital Pharmacy Technician Relationship Specialty Start Date End Date Justin Johnson MD PCP - General Family Medicine 05/13/16 Goals (unrecognized section and content) Goals may be documented in a n alternate section FOR RECORDS PERTAINING TO PATIENTS WHO ARE OR HAVE BEEN ENROLLED IN A CHEMICAL DEPENDENCY/SUBSTANCEABUSE PROGRAM, SOME INFORMATION MAY BE OMITTED. This clinical summary was aggregated from multiple sources. Caution should be exercised in using it in the provision of clinical care. This summary normalizes information from multiple sources, and as a consequence, information in this document may materially change the coding, format and clinical context of patient data. In addition, data may be omitted in some cases. CLINICAL DECISIONS SHOULD BE BASED ON THE PRIMARY CLINICAL RECORDS. [employer] [facility]. provides no warranty or guarantee of the accuracy or completeness of information in this document.
[2025-02-26 19:31] VITALS: BP 116/69; PULSE 67; RESP 16; O2SAT 100
[2025-02-26 21:00] VITALS: BP 103/62; PULSE 70; RESP 16; O2SAT 99
[2025-02-26 22:31] VITALS: BP 120/78; PULSE 66; RESP 12; TEMP 36.6; O2SAT 100
== END 2025-02-26 22:59 | disposition home or self-care (01) ==
PROVIDERS: Emergency Provider Emergency Medicine; PCP Nurse Practitioner Family; Visit Provider Emergency Medicine
DX: J32.0 Chronic maxillary sinusitis (principal); J01.20 Acute ethmoidal sinusitis, unspecified; R51.9 Headache, unspecified; M54.2 Cervicalgia; R11.2 Nausea with vomiting, unspecified; E03.9 Hypothyroidism, unspecified
CPT/HCPCS: 70450; 96374; 96375; 99284; A4216; J2405